=== PATIENT | female | born 1960 | race Caucasian/White ===

== ENCOUNTER 2019-02-04 05:23 | Inpatient (IN) | payer MEDICAID ==
[2019-02-03 14:52] LABS: BASOPHILS % (AUTO) 0.4 % (0-1); EOSINOPHILS # (AUTO) 0.3 X10'3 (0-0.9); EOSINOPHILS % (AUTO) 4.5 % (0-6); LYMPHOCYTES # (AUTO) 2.4 X10'3 (1.1-4.8); LYMPHOCYTES % (AUTO) 33.7 % (21-51); MEAN CORPUSCULAR HEMOGLOBIN 28.6 PG (27.0-31.0); MEAN CORPUSCULAR HGB CONC 33.6 g/dL (33.0-36.5); MEAN CORPUSCULAR VOLUME 85.1 FL (78-98); MEAN PLATELET VOLUME 8.5 FL (7.4-10.4); MONOCYTES # (AUTO) 0.5 X10'3 (0-0.9); MONOCYTES % (AUTO) 6.6 % (2-12); NEUTROPHILS # (AUTO) 3.9 X10'3 (1.8-7.7); NEUTROPHILS % (AUTO) 54.8 % (42-75); PRE OP HEMOGLOBIN 11.8 g/dL (12.0-16.0); PRE OP PLATELET COUNT 373 X10'3 (140-440); RED BLOOD COUNT 4.12 X10'6 (4.20-5.60); RED CELL DISTRIBUTION WIDTH 14.3 % (11.5-14.5)
[2019-02-03 14:58] LABS: PRE OP INR 0.9 INR; PRE OP PROTIME 9.4 SECONDS (9.0-12.0)
[2019-02-03 15:01] LABS: ALBUMIN 3.9 G/DL (3.4-5.0); ALKALINE PHOSPHATASE 120 IU/L (46-116); BLOOD UREA NITROGEN 34 MG/DL (7-18); BUN/CREATININE RATIO 25.8 (6.6-38.0); CALCIUM 9.6 MG/DL (8.5-10.1); CHLORIDE 104 MMOL/L (99-107); CREATININE 1.32 MG/DL (0.40-0.90); PRE OP ALT 26 U/L (30-65); PRE OP ANION GAP 8 (8-16); PRE OP AST 14 U/L (10-37); PRE OP BILIRUB, TOTAL 0.2 MG/DL (0.0-1.0); PRE OP GLUCOSE 138 MG/DL (70-104); PRE OP POTASSIUM 4.4 MMOL/L (3.4-5.1); PRE OP SODIUM 142 MMOL/L (135-145); TOTAL CARBON DIOXIDE 29.6 MMOL/L (24-32); TOTAL PROTEIN 7.7 G/DL (6.4-8.2); eGFR 41 ML/MIN
[2019-02-03 15:08] LABS: HEMOGLOBIN A1C 8.2 % (4.5-6.2)
[~2019-02-04] VITALS: Ht 154.9 cm; Wt 70.0 kg
[2019-02-04] VITALS (23 sets, daily range): BP systolic 104–158; BP diastolic 57–80
[~2019-02-04 05:23] MED LIST: ALBU1.257 NEB; ALBU18HF2 INH; ASPI-107 PO; ATOR10TA70 PO; CHOL50004 PO; DULO30CA52 PO; DULO60CA65 PO; FURO40TA4 PO; GLIM1TAB PO; METF-438 PO; METF500T20 PO; PARO10TA4 PO; PARO40TA4 PO; albuterol 2.5 MG/3 ML nebule NEB ONE
[2019-02-04] MEDS ORDERED: cefazolin/dext.iso 2gm/100 ML IV ONE (05:30)
[2019-02-04] MEDS ORDERED: famotidine 20mg tablet PO ONE (05:30)
[2019-02-04] MEDS ORDERED: hydrocortisone sod succ/PF 100mg/2ml inj. IV ONE (05:30)
[2019-02-04] MEDS ORDERED: ipratropium/albuterol 3ml nebule IH ONE (05:30)
[2019-02-04] MEDS ORDERED: ringers solution, lacted 1,000 ML IV SCH ×2 (05:30→07:25)
[2019-02-04] MEDS ORDERED: LIDOcaine 1% (10mg/ml) 2ml vial ONE (05:55)
[2019-02-04] MEDS ORDERED: ketorolac trometh. 30mg/ml inj. ONE (06:39)
[2019-02-04] MEDS ORDERED: LIDOcaine 1% 30ml preserv. free vial ONE (06:40)
[2019-02-04] MEDS ORDERED: BUPIVAcaine/PF 2.5 mg/ml (0.25%) 30ml vial ONE (06:40)
[2019-02-04] MEDS ORDERED: ROPIVAcaine 0.5% (5mg/ml) 30ml vial ONE (06:40)
--- NOTE | 2019-02-04 06:45 | NUR ---
DR CAZARES AT PT BEDSIDE FOR ANESTHESIA INTERVIEW. NOTIFIED OF AM GLUCOSE OF 257 AT 0630. NO NEW ORDERS
[2019-02-04] MEDS ORDERED: neostigmine methylsulfate 1 MG/ML 10ml vial ONE (07:17)
[2019-02-04] MEDS ORDERED: fentaNYL/PF 50MCG/1 ML 2ML syringe ONE (07:17)
[2019-02-04] MEDS ORDERED: glycopyrrolate 0.2mg/ml inj ONE (07:17)
[2019-02-04] MEDS ORDERED: midazolam 2 mg/2 ml injection ONE (07:17)
[2019-02-04] MEDS ORDERED: rocuronium 10mg/ml inj IV ONE ×2 (07:17→09:51)
[2019-02-04] MEDS ORDERED: propofol inj 20 ML IV ONE (07:18)
[2019-02-04] MEDS ORDERED: ondansetron/PF 4mg/2ml inj ONE (07:18)
[2019-02-04] MEDS ORDERED: LIDOcaine 2% (20mg/ml) 5ml vial ONE (07:18)
[2019-02-04] MEDS ORDERED: fentaNYL/PF 50MCG/1 ML 2ML syringe IV PRN ×2 (07:25)
[2019-02-04] MEDS ORDERED: labetalol 20mg/4ml (5mg/ml) syringe IV PRN (07:25)
[2019-02-04] MEDS ORDERED: morphine 4 MG/ML inj SYRINge IV PRN ×2 (07:25)
[2019-02-04] MEDS ORDERED: ondansetron/PF 4mg/2ml inj IV PRN ×2 (07:25→11:05)
[2019-02-04] MEDS ORDERED: sevoflurane 250ml liquid IH ONE (07:25)
[2019-02-04] MEDS ORDERED: hydrALAZINE 20mg/ml inj. IV PRN (07:25)
[2019-02-04] MEDS ORDERED: dexamethasone sod phosphate 4mg/ml inj. ONE (07:57)
[2019-02-04] MEDS ORDERED: labetalol 20mg/4ml (5mg/ml) syringe IV ONE (08:39)
--- NOTE | 2019-02-04 10:56 | NUR ---
Received from OR via , accompanied by Anesthesiologist DR. KIM and report given by Anesthesiolgist. Patient o2 sat 50% on 10l mask, patient then bagged. RT paged for bi-pap. Patient o2 sat 90 % wwhen bagged. BP stable as charted, RR 30, HR 80. Abd binder in place, cdi. abd soft to touch. scd's in place, 20 gauge piv to right wrist ivf infusing as ordered. Will continue to monitor.
[2019-02-04] MEDS ORDERED: Potassium Cl inj 20 MEQ in ringers solution, lacted 1,000 ML IV SCH (11:04)
[2019-02-04] MEDS ORDERED: albuterol 1.25 MG/3 ML (1/2 strength) nebule NEB PRN (11:05)
[2019-02-04] MEDS ORDERED: naloxone 0.4 mg/ml inj IV PRN (11:05)
[2019-02-04] MEDS ORDERED: CADD PCA waste documentation MC PRN (11:05)
--- NOTE | 2019-02-04 11:06 | NUR ---
RT at bedside, bi-pap placed as ordered.
--- NOTE | 2019-02-04 11:10 | NUR ---
ADMITTED TO PACU FROM OR ACCOMPANIED BY ANESTHESIA. INTIAL PHYSICAL ASSESSMENT DONE AND RECORDED. AWAKE AND RESPONSE ON ARRIVE YO PACU, REPORT RECEIVED FROM ANESTHESIA. Addendum: 02/04/19 at 1246 by Cassandra Valentine RN ABOVE NOTE IN ERROR WRONG PATIENT
[2019-02-04 11:40] LABS: ABG BASE EXCESS -2.7 mmol/L (-2.0-3.0); ABG HCO3 25.3 mmol/L (22.0-26.0); ABG OXYGEN SATURATION 85.4 % (95-98); ABG PCO2 (T) 59.5 mmHg (35.0-45.0); ABG PH (T) 7.247 (7.350-7.450); ABG PO2 (T) 59.3 mmHg (83-108); ALLEN'S TEST Positive; FCOHb 1.4 % (0.5-1.5); FO2Hb 84.2 % (94-100); MINUTE VOLUME 15 L/min; RESPIRATORY RATE 16 b/min; RESPIRATORY RATE (OBSERVED) 31 b/min; TOTAL HEMOGLOBIN 11.6 G/dl (12.0-16.0)
[2019-02-04] MEDS ORDERED: HYDROcodone/acetaminophen 10/325mg tab PO ONE (11:40)
[2019-02-04] MEDS: HYDROmorphone/NS 1 mg/ml CADD 50 ML IV SCH ×7 (12:20→23:00)
--- NOTE | 2019-02-04 12:30 | NUR ---
Redceived report from PASS unit RN Riya. Patient on bipap, vitals being obtained, 2 rn skin check performed.
[2019-02-04] MEDS ORDERED: insulin regular, human 10 units/0.1 ml syringe IV ONE (12:35)
--- NOTE | 2019-02-04 13:26 | NUR ---
patient dc criteria met, report called to negrito stone on pcu, all questions and concerns addressed. patient transferred vis hospital bed on bi-pap. vss as charted. abd binder in place, 3 lap sites noted with band aides. sister informed of patient staying over night. transferred with all personal belongings.
--- NOTE | 2019-02-04 13:54 | NUR ---
Lesia Lala arrived to [facility] rm 3021b need order for ac/hs accuchek
[2019-02-04 14:05] LABS: ALLEN'S TEST Positive; MINUTE VOLUME 20 L/min; RESPIRATORY RATE 16 b/min; RESPIRATORY RATE (OBSERVED) 30 b/min; TIDAL VOLUME 675 mL
--- NOTE | 2019-02-04 14:05 | NUR ---
Lesia woodson rm 3022b need Diabetic protocol JOANN Gonzalez ext [phone]
[2019-02-04 14:06] LABS: ABG BASE EXCESS 0.3 mmol/L (-2.0-3.0); ABG HCO3 26.2 mmol/L (22.0-26.0); ABG OXYGEN SATURATION 95.2 % (95-98); ABG PCO2 (T) 47.7 mmHg (35.0-45.0); ABG PH (T) 7.358 (7.350-7.450); ABG PO2 (T) 81.5 mmHg (83-108); FCOHb 0.5 % (0.5-1.5); FMetHb 0.1 % (0.3-1.12); FO2Hb 94.6 % (94-100); TOTAL HEMOGLOBIN 11.8 G/dl (12.0-16.0)
[2019-02-04] MEDS ORDERED: magnesium Cl slow-release 64mg tablet PO PRN (14:30)
[2019-02-04] MEDS ORDERED: dextrose 50%-water 50ml dispensing syringe IV PRN ×2 (14:30)
[2019-02-04] MEDS ORDERED: magnesium 4gm in 100ml NS 100 ML IV PRN (14:30)
[2019-02-04] MEDS ORDERED: potassium Cl 20 mEq SR tablet PO PRN ×2 (14:30)
[2019-02-04] MEDS ORDERED: dextrose ORAL solution 15 GM/59 ML bottle PO PRN ×2 (14:30)
[2019-02-04] MEDS ORDERED: MESSAGE TO PHARMACY PO ONE (14:30)
[2019-02-04] MEDS ORDERED: potassium CL 10mEq/100ml bag 100 ML IV PRN (14:30)
[2019-02-04] MEDS ORDERED: glucagon, human recombinant 1mg kit SUBCUT PRN (14:30)
--- NOTE | 2019-02-04 15:11 | NUR ---
Lesia Lala rm 5373b hx heavy smoking. Nicotine patch ? JOANN Gonzalez [phone]
[2019-02-04] MEDS: normal saline 1000ml 1,000 ML IV SCH (15:12)
[2019-02-04] MEDS ORDERED: methylPREDNISolone sod succ 125mg/2ml vial IV ONE (15:25)
[2019-02-04] MEDS: nicotine 21mg patch - 24 hr TD SCH (15:59)
[2019-02-04] MEDS: insulin Lispro (HumaLOG) vial - multi-dose SQ SCH (17:33)
--- NOTE | 2019-02-04 18:30 | NUR ---
Problems reprioritized. Patient report given, questions answered & plan of care reviewed with JOANN Harman .
--- NOTE | 2019-02-04 18:30 | NUR ---
Patient in room PCU 3028. I have received report from pramod and negrito benavidez and had the opportunity to ask questions and assume patient care.
--- NOTE | 2019-02-04 18:31 | NUR ---
Problems reprioritized. Patient report given, questions answered & plan of care reviewed with Ghazal DAVID. Patient stable at transfer of care.
--- NOTE | 2019-02-04 18:33 | NUR ---
Orientee documentation: I have reviewed and agree with interventions, assessments performed and documented by Lisa DAVID. Orientee Medication Administration: For this medication-pass time frame, medication were reviewed, dispensed, administered and documented per hospital policy by Lisa DAVID.
[2019-02-04] MEDS: ipratropium/albuterol 3ml nebule NEB SCH ×2 (18:56→22:44)
[2019-02-04] MEDS: vitamin D (cholecalciferol) 1,000 unit tablet PO SCH (21:25)
[2019-02-04] MEDS: heparin, porcine 5000 units/ml vial SQ SCH (21:25)
[2019-02-04] MEDS: methylPREDNISolone sod succ 125mg/2ml vial IV SCH (21:25)
[2019-02-04] MEDS: insulin glargine (Lantus) pen - multi-dose SQ SCH (21:31)
[2019-02-04] MEDS ORDERED: LORazepam 2 mg/ml vial IV PRN (23:55)
--- NOTE | 2019-02-05 00:29 | NUR ---
PT PULLED OUT HER IV TRYING TO GET SOMETHING IN HER PURSE. PT IS REFUSING NEW IV ALTHOUGH SHE DID ALLOW TWO UNSUCCESSFUL ATTEMPTS. PT STATED HER UNDERSTANDING THAT PAIN MEDS WERE COMING THROUGH IV VIA HER CADD. STILL REFUSED NEW IV. ORDERS FOR PO NORCO OBTAINED
[2019-02-05] MEDS: methylPREDNISolone sod succ 125mg/2ml vial IV SCH ×4 (00:35→19:32)
[2019-02-05] MEDS: HYDROcodone/acetaminophen 10/325mg tab PO PRN ×5 (00:57→23:15)
[2019-02-05] MEDS: HYDROmorphone/NS 1 mg/ml CADD 50 ML IV SCH (01:00)
[2019-02-05 03:00] VITALS: BP 109/62
[2019-02-05] MEDS: ipratropium/albuterol 3ml nebule NEB SCH ×6 (03:05→22:55)
[2019-02-05] MEDS: normal saline 1000ml 1,000 ML IV SCH ×2 (03:21→17:40)
[2019-02-05] MEDS: LORazepam 0.5 MG tablet PO PRN ×3 (03:27→23:15)
[2019-02-05 05:07] LABS: BASOPHILS % (AUTO) 0.2 % (0-1); EOSINOPHILS % (AUTO) 0 % (0-6); HEMATOCRIT 34.5 % (35.0-45.0); HEMOGLOBIN 11.2 g/dl (12.0-16.0); LYMPHOCYTES # (AUTO) 1.1 X10'3 (1.1-4.8); LYMPHOCYTES % (AUTO) 6.8 % (21-51); MEAN CORPUSCULAR HEMOGLOBIN 27.9 PG (27.0-31.0); MEAN CORPUSCULAR HGB CONC 32.3 g/dL (33.0-36.5); MEAN CORPUSCULAR VOLUME 86.4 FL (78-98); MEAN PLATELET VOLUME 8.5 FL (7.4-10.4); MONOCYTES # (AUTO) 0.6 X10'3 (0-0.9); MONOCYTES % (AUTO) 3.6 % (2-12); NEUTROPHILS # (AUTO) 13.9 X10'3 (1.8-7.7); NEUTROPHILS % (AUTO) 89.4 % (42-75); PLATELET COUNT 364 X10'3 (140-440); RED CELL DISTRIBUTION WIDTH 14.4 % (11.5-14.5); WHITE BLOOD COUNT 15.5 X10'3 (4.5-11.0)
[2019-02-05 05:15] LABS: ALBUMIN 3.6 G/DL (3.4-5.0); ANION GAP 13 (8-16); BLOOD UREA NITROGEN 32 MG/DL (7-18); BUN/CREATININE RATIO 22.5 (6.6-38.0); CALCIUM 8.9 MG/DL (8.5-10.1); CHLORIDE 104 MMOL/L (99-107); CREATININE 1.42 MG/DL (0.40-0.90); GLUCOSE 326 MG/DL (70-104); MAGNESIUM 1.8 MG/DL (1.5-2.4); PHOSPHORUS 3.9 MG/DL (2.3-4.5); POTASSIUM 4.5 MMOL/L (3.5-5.1); SODIUM 141 MMOL/L (135-145); TOTAL CARBON DIOXIDE 24.2 MMOL/L (24-32); eGFR 38 ML/MIN
[2019-02-05 06:00] VITALS: BP 127/79
--- NOTE | 2019-02-05 06:28 | NUR ---
Problems reprioritized. Patient report given, questions answered & plan of care reviewed with pramod stone.
--- NOTE | 2019-02-05 06:30 | NUR ---
Patient in room PCU 3028. I have received report from JOANN Harman and had the opportunity to ask questions and assume patient care.
[2019-02-05] MEDS: PARoxetine 20mg tablet PO SCH (07:52)
[2019-02-05] MEDS: atorvastatin 10mg tablet PO SCH (07:52)
[2019-02-05] MEDS: vitamin D (cholecalciferol) 1,000 unit tablet PO SCH ×2 (07:53→19:47)
[2019-02-05] MEDS: duloxetine 30mg CAPSULE.DR PO SCH (07:53)
[2019-02-05] MEDS: heparin, porcine 5000 units/ml vial SQ SCH ×3 (07:55→19:51)
[2019-02-05] MEDS ORDERED: glimepiride 1 MG tablet PO SCH (08:00)
[2019-02-05] MEDS ORDERED: PARoxetine 10mg tablet PO SCH (08:00)
[2019-02-05] MEDS ORDERED: duloxetine 30mg CAPSULE.DR PO SCH (08:00)
[2019-02-05] MEDS: nicotine 21mg patch - 24 hr TD SCH ×2 (08:00→11:55)
[2019-02-05] MEDS ORDERED: furosemide 40mg tablet PO SCH (08:00)
[2019-02-05] MEDS: insulin Lispro (HumaLOG) vial - multi-dose SQ SCH ×2 (09:00→21:42)
--- NOTE | 2019-02-05 10:30 | NUR ---
Lesia Lala insists on d/c today JOANN Gonzalez ext [phone]
--- NOTE | 2019-02-05 10:42 | NUR ---
Lesia Lala insists on d/c today JOANN Gonzalez ext [phone]
[2019-02-05 11:00] VITALS: BP 106/62
[2019-02-05] MEDS ORDERED: magnesium hydroxide 30ml (MOM) UD suspension PO ONE (12:40)
--- NOTE | 2019-02-05 13:05 | NUR ---
Patient has been refusing to wear her tele monitor and went missing for the second time this shift. [place] the bus [place]. She was educated that leaving the floor is not permitted and smoking while inpatient was not permitted. She was informed that if she was willing to return to the floor she was to keep her tele monitor on and if she is not willing to follow our policy of remaining on our floor and wearing her tele monitor she would potentially need to leave AMA. Returned patient to room via wheelchair as she was very winded. SPO2 was 91% on room air upon arrival. Will continue to monitor.
--- NOTE | 2019-02-05 13:08 | NUR ---
Paged Dr Orozco "PAGER ID: [phone] MESSAGE: [phone] Su[address] [phone] Spike Lesia patient was found at the bus stop smoking for the second time today. She was educated that this is not okay. Placed back on tele monitoring. SPO2 was 91% on arrival back to the floor."
[2019-02-05 15:00] VITALS: BP 122/71
--- NOTE | 2019-02-05 15:52 | NUR ---
DM consult: Pt with A1c 8.2 seen at bedside. Pt falling asleep during RD visit however pt declines any questions about DM management at this time. Pt provided with written DM ed with referral to outpatient DM class and RD contact information. Pt s/p lap lysis of adhesions and mesh repair of recurrent incisional hernia. Pt with BiPAP d/t underlying pulmonary disease. Pt reports low appetite. Diet just advanced to CHO controlled from clear liquid, pending documented PO intake. Pt reports food allergy to honey and states difficulty chewing and swallowing, ST consult will be sent. No documented LBM, pt reports it was 4 weeks ago which is unlikely. Pt given MoM today per med list, will send power pudding with dinner tonight. Will continue to follow and monitor need for ONS. Recommendations: 1) Continue CHO controlled diet 2) Monitor need for ONS 3) Routine bowel care 4) Wt per rx Addendum: 02/05/19 at [address] Amended: Links added.
[2019-02-05 18:00] VITALS: BP 116/73
--- NOTE | 2019-02-05 18:31 | NUR ---
Problems reprioritized. Patient report given, questions answered & plan of care reviewed with JOANN Pacheco and JOANN Sethi .
--- NOTE | 2019-02-05 18:41 | NUR ---
PAGER ID: [phone] MESSAGE: [phone] Lesia Lala: Has no code status orders. Will you please enter the order? Thanks. Brittny DAVID ext [phone]
--- NOTE | 2019-02-05 18:41 | NUR ---
Patient in room PCU 3028. I have received report from Lisa DAVID and had the opportunity to ask questions and assume patient care.
[2019-02-05] MEDS: furosemide 40mg/4ml inj IV SCH (19:32)
[2019-02-05] MEDS: diltiazem SR 60mg capsule (twice daily) PO SCH (19:47)
[2019-02-05] MEDS: insulin glargine (Lantus) pen - multi-dose SQ SCH (21:39)
[2019-02-05 22:00] VITALS: BP 119/70
--- NOTE | 2019-02-06 01:54 | NUR ---
Patient left the hospital AMA. Was outside the hospital in respiratory distress so was readmitted to the floor. No IV access currently and am unable to gain access. notified.
[2019-02-06] MEDS: methylPREDNISolone sod succ 125mg/2ml vial IV SCH ×4 (01:57→19:44)
[2019-02-06 02:00] VITALS: BP 132/76
[2019-02-06] MEDS: ipratropium/albuterol 3ml nebule NEB SCH ×6 (03:01→23:01)
[2019-02-06] MEDS: LORazepam 0.5 MG tablet PO PRN ×3 (04:31→22:12)
[2019-02-06 05:44] LABS: MAGNESIUM 2.3 MG/DL (1.5-2.4); PHOSPHORUS 3.9 MG/DL (2.3-4.5)
[2019-02-06 06:00] VITALS: BP 122/65
--- NOTE | 2019-02-06 06:05 | NUR ---
Orientee documentation: I have reviewed and agree with all interventions, assessments performed and documented by Jossie DAVID . Medication Administration: For this medication-pass time frame, all medication were reviewed, dispensed, administered and documented per hospital policy by Jossie DAVID .
--- NOTE | 2019-02-06 06:07 | NUR ---
Problems reprioritized. Patient report given, questions answered & plan of care reviewed with Lisa DAVID
--- NOTE | 2019-02-06 06:13 | NUR ---
Patient in room PCU 3015. I have received report from Tara RN and JOANN Sethi and had the opportunity to ask questions and assume patient care.
[2019-02-06] MEDS: heparin, porcine 5000 units/ml vial SQ SCH ×3 (08:00→19:44)
[2019-02-06] MEDS: furosemide 40mg/4ml inj IV SCH ×2 (08:58→19:45)
[2019-02-06] MEDS: PARoxetine 20mg tablet PO SCH (08:58)
[2019-02-06] MEDS: atorvastatin 10mg tablet PO SCH (08:59)
[2019-02-06] MEDS: vitamin D (cholecalciferol) 1,000 unit tablet PO SCH ×2 (08:59→19:44)
[2019-02-06] MEDS: duloxetine 30mg CAPSULE.DR PO SCH (08:59)
[2019-02-06] MEDS: HYDROcodone/acetaminophen 10/325mg tab PO PRN ×3 (09:12→21:04)
[2019-02-06] MEDS ORDERED: magnesium 4gm in 100ml NS 100 ML IV PRN (09:45)
[2019-02-06] MEDS ORDERED: potassium Cl 20 mEq SR tablet PO PRN ×2 (09:45)
[2019-02-06] MEDS ORDERED: magnesium Cl slow-release 64mg tablet PO PRN (09:45)
[2019-02-06] MEDS ORDERED: potassium CL 10mEq/100ml bag 100 ML IV PRN (09:45)
[2019-02-06 10:25] LABS: BASOPHILS % (AUTO) 0.2 % (0-1); EOSINOPHILS % (AUTO) 0 % (0-6); HEMATOCRIT 30.3 % (35.0-45.0); HEMOGLOBIN 10.3 g/dl (12.0-16.0); LYMPHOCYTES # (AUTO) 1.4 X10'3 (1.1-4.8); LYMPHOCYTES % (AUTO) 18.3 % (21-51); MEAN CORPUSCULAR HEMOGLOBIN 28.6 PG (27.0-31.0); MEAN CORPUSCULAR HGB CONC 33.8 g/dL (33.0-36.5); MEAN CORPUSCULAR VOLUME 84.8 FL (78-98); MONOCYTES # (AUTO) 0.5 X10'3 (0-0.9); MONOCYTES % (AUTO) 6.7 % (2-12); NEUTROPHILS # (AUTO) 5.9 X10'3 (1.8-7.7); NEUTROPHILS % (AUTO) 74.8 % (42-75); PLATELET COUNT 305 X10'3 (140-440); RED BLOOD COUNT 3.58 X10'6 (4.20-5.60); RED CELL DISTRIBUTION WIDTH 14.2 % (11.5-14.5); WHITE BLOOD COUNT 7.8 X10'3 (4.5-11.0)
[2019-02-06 10:40] LABS: MAGNESIUM 2.1 MG/DL (1.5-2.4); PHOSPHORUS 3.4 MG/DL (2.3-4.5)
[2019-02-06] MEDS: diltiazem SR 60mg capsule (twice daily) PO SCH ×2 (10:52→19:45)
[2019-02-06] MEDS: nicotine 21mg patch - 24 hr TD SCH (10:55)
[2019-02-06] MEDS: levoFLOXACIN 250mg tablet PO SCH (10:55)
--- NOTE | 2019-02-06 11:44 | NUR ---
new order for ABG respiratory is notiifed
[2019-02-06] MEDS: normal saline 1000ml 1,000 ML IV SCH (11:53)
[2019-02-06 12:16] LABS: ABG BASE EXCESS 4.2 mmol/L (-2.0-3.0); ABG HCO3 30.9 mmol/L (22.0-26.0); ABG OXYGEN SATURATION 91.5 % (95-98); ABG PCO2 (T) 56.9 mmHg (35.0-45.0); ABG PH (T) 7.353 (7.350-7.450); ABG PO2 (T) 63.1 mmHg (83-108); ALLEN'S TEST Positive; FCOHb 0.3 % (0.5-1.5); FLOW 4 L/min; FMetHb 0.1 % (0.3-1.12); FO2Hb 91.1 % (94-100); TOTAL HEMOGLOBIN 11.5 G/dl (12.0-16.0)
[2019-02-06] MEDS: insulin Lispro (HumaLOG) vial - multi-dose SQ SCH ×2 (14:32→22:02)
[2019-02-06 15:00] VITALS: BP 116/62
--- NOTE | 2019-02-06 17:11 | NUR ---
FSBG of 351. Pt states that she ate 2 butch crackers 30-45 minutes prior to accucheck. Primary RN notified.
--- NOTE | 2019-02-06 18:00 | NUR ---
Patient in room PCU 3015. I have received report from Lisa DAVID and had the opportunity to ask questions and assume patient care.
--- NOTE | 2019-02-06 18:00 | NUR ---
Problems reprioritized. Patient report given, questions answered & plan of care reviewed with JOANN Solis .
[2019-02-06 19:00] VITALS: BP 103/58
[2019-02-06] MEDS: lactobacillus rhamnosus 10,000 MMU CELLS/CAPSULE PO SCH (19:45)
[2019-02-06] MEDS: insulin glargine (Lantus) pen - multi-dose SQ SCH (22:36)
[2019-02-06 23:00] VITALS: BP 111/62
[2019-02-07] MEDS: methylPREDNISolone sod succ 125mg/2ml vial IV SCH ×3 (02:20→14:00)
[2019-02-07 03:00] VITALS: BP 120/52
[2019-02-07] MEDS: ipratropium/albuterol 3ml nebule NEB SCH ×3 (03:08→10:57)
[2019-02-07 05:53] LABS: BASOPHILS % (AUTO) 0.2 % (0-1); EOSINOPHILS % (AUTO) 0 % (0-6); HEMOGLOBIN 10.3 g/dl (12.0-16.0); LYMPHOCYTES # (AUTO) 0.6 X10'3 (1.1-4.8); LYMPHOCYTES % (AUTO) 7.8 % (21-51); MEAN CORPUSCULAR HEMOGLOBIN 28.3 PG (27.0-31.0); MEAN CORPUSCULAR HGB CONC 33.2 g/dL (33.0-36.5); MEAN CORPUSCULAR VOLUME 85.4 FL (78-98); MEAN PLATELET VOLUME 8.4 FL (7.4-10.4); MONOCYTES # (AUTO) 0.1 X10'3 (0-0.9); NEUTROPHILS # (AUTO) 6.7 X10'3 (1.8-7.7); PLATELET COUNT 314 X10'3 (140-440); RED BLOOD COUNT 3.63 X10'6 (4.20-5.60); RED CELL DISTRIBUTION WIDTH 14.5 % (11.5-14.5); WHITE BLOOD COUNT 7.5 X10'3 (4.5-11.0)
[2019-02-07 05:59] LABS: ALANINE AMINOTRANSFERASE 30 U/L (12-78); ALBUMIN 3.6 G/DL (3.4-5.0); ALBUMIN/GLOBULIN RATIO 0.9 (1.1-1.5); ALKALINE PHOSPHATASE 92 IU/L (46-116); ANION GAP 11 (8-16); ASPARTATE AMINO TRANSFERASE 19 U/L (10-37); BILIRUBIN,TOTAL 0.3 MG/DL (0.1-1.0); BLOOD UREA NITROGEN 44 MG/DL (7-18); BUN/CREATININE RATIO 36.7 (6.6-38.0); CALCIUM 9.9 MG/DL (8.5-10.1); CHLORIDE 100 MMOL/L (99-107); GLUCOSE 278 MG/DL (70-104); POTASSIUM 3.4 MMOL/L (3.5-5.1); SODIUM 140 MMOL/L (135-145); TOTAL PROTEIN 7.7 G/DL (6.4-8.2); eGFR 46 ML/MIN
[2019-02-07 06:00] VITALS: BP 127/70
[2019-02-07] MEDS: HYDROcodone/acetaminophen 10/325mg tab PO PRN ×2 (06:01→10:57)
--- NOTE | 2019-02-07 06:29 | NUR ---
Problems reprioritized. Patient report given, questions answered & plan of care reviewed with Elizabeth DAVID.
[2019-02-07] MEDS: atorvastatin 10mg tablet PO SCH (08:41)
[2019-02-07] MEDS: furosemide 40mg/4ml inj IV SCH (08:41)
[2019-02-07] MEDS: heparin, porcine 5000 units/ml vial SQ SCH (08:41)
[2019-02-07] MEDS: vitamin D (cholecalciferol) 1,000 unit tablet PO SCH (08:42)
[2019-02-07] MEDS: duloxetine 30mg CAPSULE.DR PO SCH (08:42)
[2019-02-07] MEDS: diltiazem SR 60mg capsule (twice daily) PO SCH (08:42)
[2019-02-07] MEDS: lactobacillus rhamnosus 10,000 MMU CELLS/CAPSULE PO SCH (08:42)
[2019-02-07] MEDS: PARoxetine 20mg tablet PO SCH (08:42)
[2019-02-07] MEDS: insulin Lispro (HumaLOG) vial - multi-dose SQ SCH (08:50)
[2019-02-07] MEDS: levoFLOXACIN 250mg tablet PO SCH (10:50)
[2019-02-07 10:53] VITALS: BP 120/74
[2019-02-07] MEDS: LORazepam 0.5 MG tablet PO PRN (10:53)
[2019-02-07] MEDS ORDERED: LEVO250T58 PO (11:09)
[2019-02-07] MEDS ORDERED: LACT1CAP26 PO (11:09)
[2019-02-07] MEDS ORDERED: PRED10TA23 PO (11:09)
[2019-02-07] MEDS ORDERED: CARSR60C PO (11:09)
[2019-02-07] MEDS ORDERED: MONT10TA21 PO (11:09)
[2019-02-07] MEDS ORDERED: BUDE10.22 INH (11:09)
[2019-02-07] MEDS ORDERED: NICO-687 TD (11:09)
--- NOTE | 2019-02-07 12:09 | NUR ---
FSBG 66, pt drinking apple juice at this time. Pt will be reassessed in 15 minutes.
--- NOTE | 2019-02-07 12:30 | NUR ---
Pts BG 66 before lunch. Pt drinking juice. States she feels "fine". BG 101 on recollect. No Insulin given.
--- NOTE | 2019-02-07 14:26 | NUR ---
Paged Dr. Orozco "MASON Gunter stated ok for d/c home. discharging pt home now."
--- NOTE | 2019-02-07 15:02 | NUR ---
Reviewed discharge instructions and importance of quitting smoking with pt and she verbalized understanding. IV removed. Reviewed prescriptions with pt and she verbalized understanding. Rx called to pts [facility] in [place]. Written Rx for Stephenson from Dr. Gunter given to pt to take to pharmacy. Pt discharged home with family. Pt refused to wear O2 on the ride home, she normally wears O2 at home. Pt escorted to her vehicle in with PCT.
[2019-02-08] MEDS ORDERED: MONT10TA21 PO (16:20)
[2019-02-08] MEDS ORDERED: CYCL-1 PO (16:21)
== END 2019-02-07 15:09 | disposition home health service (06) | DRG 227 ==
LOC: PAS 05:23 → PCU 3S 11:04 → UNDODISIN 02-06 01:10 → PCU 3S 02-06 01:33 → UNDODISIN 02-07 13:10
PROVIDERS: ADMIT Surgery; ATTEND Family Medicine
PROC: 0WUF4JZ Supplement Abdominal Wall with Synthetic Substitute, Percutaneous Endoscopic Approach (ICD-10-PCS; 2019-02-04)
PROC: 8E0W4CZ Robotic Assisted Procedure of Trunk Region, Percutaneous Endoscopic Approach (ICD-10-PCS; 2019-02-04)
PROC: 0DNU4ZZ Release Omentum, Percutaneous Endoscopic Approach (ICD-10-PCS; 2019-02-04)
PROC: 0DN84ZZ Release Small Intestine, Percutaneous Endoscopic Approach (ICD-10-PCS; 2019-02-04)
PROC: 0DNW4ZZ Release Peritoneum, Percutaneous Endoscopic Approach (ICD-10-PCS; 2019-02-04)
PROC: 5A09357 Assistance with Respiratory Ventilation, Less than 24 Consecutive Hours, Continuous Positive Airway Pressure (ICD-10-PCS; 2019-02-04)
PROC: 3E0T3BZ Introduction of Anesthetic Agent into Peripheral Nerves and Plexi, Percutaneous Approach (ICD-10-PCS; principal; 2019-02-04 07:25)
PROC: 5A09357 Assistance with Respiratory Ventilation, Less than 24 Consecutive Hours, Continuous Positive Airway Pressure (ICD-10-PCS; 2019-02-06)
DX: K43.0 Incisional hernia with obstruction, without gangrene (principal); J96.90 Respiratory failure, unspecified, unspecified whether with hypoxia or hypercapnia; J44.1 Chronic obstructive pulmonary disease with (acute) exacerbation; E11.22 Type 2 diabetes mellitus with diabetic chronic kidney disease; Z99.81 Dependence on supplemental oxygen; M32.9 Systemic lupus erythematosus, unspecified; D64.9 Anemia, unspecified; F32.9 Major depressive disorder, single episode, unspecified; E78.5 Hyperlipidemia, unspecified; F17.210 Nicotine dependence, cigarettes, uncomplicated; R00.0 Tachycardia, unspecified; N18.9 Chronic kidney disease, unspecified; I12.9 Hypertensive chronic kidney disease with stage 1 through stage 4 chronic kidney disease, or unspecified chronic kidney disease; K66.0 Peritoneal adhesions (postprocedural) (postinfection); F41.9 Anxiety disorder, unspecified; T38.0X5A Adverse effect of glucocorticoids and synthetic analogues, initial encounter; Z79.84 Long term (current) use of oral hypoglycemic drugs; Z80.9 Family history of malignant neoplasm, unspecified; Z82.49 Family history of ischemic heart disease and other diseases of the circulatory system; Z88.8 Allergy status to other drugs, medicaments and biological substances; Z91.030 Bee allergy status; Z91.018 Allergy to other foods; Z90.710 Acquired absence of both cervix and uterus; Z90.49 Acquired absence of other specified parts of digestive tract; Z83.3 Family history of diabetes mellitus; Z82.3 Family history of stroke; Z82.61 Family history of arthritis; Z80.0 Family history of malignant neoplasm of digestive organs; Z80.6 Family history of leukemia; Z91.19 Patient's noncompliance with other medical treatment and regimen; Z71.6 Tobacco abuse counseling; Y92.89 Other specified places as the place of occurrence of the external cause
CPT/HCPCS: 36415; 36600; 71046; 76937; 80048; 80053; 82803; 82948; 83036; 83605; 83735; 84100; 84145; 85018; 85025; 85610; 85730; 92508; 92616; 93005; 93306; 94640; 94660; 94760; A4215; A4618; C1781; G0378; J1100; J1170; J1644; J1720; J1815; J1885; J1940; J2001; J2250; J2405; J2704; J2710; J2795; J2930; J3010; J3480; J3490; J7030; J7120

== ENCOUNTER 2019-02-08 07:26 | Inpatient (IN) | payer MEDICAID ==
[~2019-02-08] VITALS: Ht 160 cm; Wt 93.1 kg
[2019-02-08] VITALS (13 sets, daily range): BP systolic 96–121; BP diastolic 44–65
[~2019-02-08 07:26] MED LIST changes: +BUDE10.22 INH; +CARSR60C PO; +LACT1CAP26 PO; +LEVO250T58 PO; +MONT10TA21 PO; +NICO-687 TD; +PRED10TA23 PO; -albuterol 2.5 MG/3 ML nebule NEB ONE
[2019-02-08] MEDS ORDERED: normal saline 1000ML IV soln IV ONE (07:35)
[2019-02-08] MEDS ORDERED: methylPREDNISolone sod succ 125mg/2ml vial IV ONE (07:35)
[2019-02-08] MEDS ORDERED: levoFLOXACIN-Levaquin 750MG/D5 150 ML IV ONE (07:35)
[2019-02-08] MEDS ORDERED: albuterol 2.5 MG/3 ML nebule CONTNEB PRN (07:35)
--- NOTE | 2019-02-08 07:47 | NUR ---
patient on bipap sating 100%.radiology at bedside.
--- NOTE | 2019-02-08 07:55 | NUR ---
RT AT BEDSIDE FOR ABG.
[2019-02-08 08:00] LABS: BASOPHILS % (AUTO) 0.3 % (0-1); EOSINOPHILS % (AUTO) 0 % (0-6); HEMATOCRIT 31.8 % (35.0-45.0); HEMOGLOBIN 10.3 g/dl (12.0-16.0); LYMPHOCYTES # (AUTO) 0.9 X10'3 (1.1-4.8); LYMPHOCYTES % (AUTO) 7.1 % (21-51); MEAN CORPUSCULAR HEMOGLOBIN 27.7 PG (27.0-31.0); MEAN CORPUSCULAR HGB CONC 32.3 g/dL (33.0-36.5); MEAN CORPUSCULAR VOLUME 85.9 FL (78-98); MEAN PLATELET VOLUME 8.3 FL (7.4-10.4); MONOCYTES # (AUTO) 1.1 X10'3 (0-0.9); MONOCYTES % (AUTO) 8.3 % (2-12); NEUTROPHILS # (AUTO) 10.8 X10'3 (1.8-7.7); NEUTROPHILS % (AUTO) 84.3 % (42-75); PLATELET COUNT 352 X10'3 (140-440); RED CELL DISTRIBUTION WIDTH 14.3 % (11.5-14.5); WHITE BLOOD COUNT 12.8 X10'3 (4.5-11.0)
[2019-02-08 08:06] LABS: ABG BASE EXCESS 2.5 mmol/L (-2.0-3.0); ABG HCO3 31.7 mmol/L (22.0-26.0); ABG OXYGEN SATURATION 99.5 % (95-98); ABG PCO2 (T) 77.1 mmHg (35.0-45.0); ABG PH (T) 7.232 (7.350-7.450); ABG PO2 (T) 527.9 mmHg (83-108); ALLEN'S TEST Positive; FCOHb 2.5 % (0.5-1.5); FMetHb 0.1 % (0.3-1.12); FO2Hb 96.9 % (94-100); MINUTE VOLUME 12 L/min; RESPIRATORY RATE 16 b/min; RESPIRATORY RATE (OBSERVED) 25 b/min; TIDAL VOLUME 469 mL; TOTAL HEMOGLOBIN 10.9 G/dl (12.0-16.0)
[2019-02-08 08:09] LABS: PARTIAL THROMBOPLASTIN TIME 25 SECONDS (22-32)
[2019-02-08 08:12] LABS: ANION GAP 6 (8-16); CHLORIDE 102 MMOL/L (99-107); POTASSIUM 4.9 MMOL/L (3.5-5.1); SODIUM 139 MMOL/L (135-145); TOTAL CARBON DIOXIDE 31.3 MMOL/L (24-32)
[2019-02-08 08:16] LABS: ALANINE AMINOTRANSFERASE 35 U/L (12-78); ALBUMIN 3.9 G/DL (3.4-5.0); ALKALINE PHOSPHATASE 114 IU/L (46-116); ASPARTATE AMINO TRANSFERASE 25 U/L (10-37); BILIRUBIN,TOTAL 0.2 MG/DL (0.1-1.0); BLOOD UREA NITROGEN 65 MG/DL (7-18); BUN/CREATININE RATIO 42.8 (6.6-38.0); CREATININE 1.52 MG/DL (0.40-0.90); GLUCOSE 388 MG/DL (70-104); TOTAL PROTEIN 7.9 G/DL (6.4-8.2); eGFR 35 ML/MIN
[2019-02-08 08:24] LABS: CLARITY,URINE CLEAR (Clear); COLOR,URINE YELLOW (Yellow); GLUCOSE, URINE >=1000 mg/dl (Neg); KETONES,URINE NEGATIVE (Neg); LEUKOCYTE ESTERASE ,URINE NEGATIVE (Neg); NITRITES, URINE NEGATIVE (Neg); OCCULT BLOOD,URINE MODERATE (Neg); PROTEIN,URINE NEGATIVE (Neg); UROBILINOGEN,URINE 0.2 E.U/dL (0.2-1.0)
[2019-02-08 08:25] LABS: UA COLLECTION TYPE STRAIGHT CATH
[2019-02-08 08:30] LABS: SQUAMOUS EPITHELIAL CELL,UR FEW /LPF (FEW)
--- NOTE | 2019-02-08 08:30 | NUR ---
patient appeared restless,repositioned for comfort.
[2019-02-08 08:31] LABS: BACTERIA,URINE FEW /HPF (Neg); WBC,URINE 0-4 /HPF (0-4)
--- NOTE | 2019-02-08 08:32 | NUR ---
dr. funez at bedside,made aware that patient was trying to pull out her bipap,appeared restless .Rt to draw another abg before 0900.
--- NOTE | 2019-02-08 09:10 | NUR ---
RT AT BEDSIDE.
[2019-02-08] MEDS ORDERED: etomidate 2mg/ml inj. IV ONE (09:20)
[2019-02-08] MEDS ORDERED: rocuronium 10mg/ml inj IV ONE (09:20)
[2019-02-08 09:25] LABS: ABG BASE EXCESS -0.6 mmol/L (-2.0-3.0); ABG HCO3 28.9 mmol/L (22.0-26.0); ABG OXYGEN SATURATION 97.9 % (95-98); ABG PCO2 (T) 78.2 mmHg (35.0-45.0); ABG PH (T) 7.186 (7.350-7.450); ABG PO2 (T) 139.6 mmHg (83-108); ALLEN'S TEST Positive; FCOHb 1.2 % (0.5-1.5); FMetHb 0.1 % (0.3-1.12); FO2Hb 96.6 % (94-100); MINUTE VOLUME 12 L/min; RESPIRATORY RATE 16 b/min; RESPIRATORY RATE (OBSERVED) 30 b/min; TIDAL VOLUME 383 mL; TOTAL HEMOGLOBIN 10.5 G/dl (12.0-16.0)
--- NOTE | 2019-02-08 09:25 | NUR ---
RSI- RT at bedside providing 100% o2 0925 Rocuronium 70 iv admin 0925 etomidate 20 admin iv
[2019-02-08] MEDS: propofol 1000mg/100ml bottle 100 ML IV SCH ×4 (09:31→17:08)
--- NOTE | 2019-02-08 09:49 | NUR ---
DR. CHAVEZ AND DR. IRVIN AT BEDSIDE.
--- NOTE | 2019-02-08 09:55 | NUR ---
LEFT A MESSAGE TO SON,[phone] AND TO JER.MADE AWARE THAT PATIENT IS BEIGN ADMITEED TO ICU AND TO CALL HOSPITAL BACK.
--- NOTE | 2019-02-08 10:03 | NUR ---
PICTURES TAKEN TO ABDOMINAL BRUISING FROM HERNIA REPAIR.
[2019-02-08] MEDS ORDERED: acetaminophen 325mg tablet PO PRN ×4 (10:20)
[2019-02-08] MEDS ORDERED: potassium Cl 20 mEq SR tablet PO PRN ×2 (10:20)
[2019-02-08] MEDS ORDERED: magnesium hydroxide 30ml (MOM) UD suspension PO PRN ×2 (10:20)
[2019-02-08] MEDS ORDERED: ondansetron/PF 4mg/2ml inj IV PRN (10:20)
[2019-02-08] MEDS ORDERED: pantoprazole 40 MG vial IV SCH (10:20)
[2019-02-08] MEDS: K, MAG and/or Phos replacement - Verify level? MC SCH (10:20)
--- NOTE | 2019-02-08 10:30 | NUR ---
Received report from JOANN Jaramillo
[2019-02-08 10:45] LABS: MAGNESIUM 2.3 MG/DL (1.5-2.4)
--- NOTE | 2019-02-08 10:50 | NUR ---
Pt arrived to unit via gurney and transferred to bed via slideboard. Intubated and sedated with propofol. RT providing BVM ventilation. Pt hooked up to monitor. VSS. Hydrophyllic foam to sacrum. Skin check performed with assembly person, Ashley. No wounds noted aside from bruising on abd from recent hernia repair.
--- NOTE | 2019-02-08 11:28 | NUR ---
Pt fighting vent, coughing, peak pressuring, desatting, appears extremely agitated. Several propofol boluses given and dose steadily increased to 50mcg
[2019-02-08] MEDS: enoxaparin 40mg/0.4ml syringe SUBCUT SCH (11:56)
[2019-02-08] MEDS: sodium chloride 0.45% 1,000 ML IV SCH (11:56)
[2019-02-08] MEDS ORDERED: fentaNYL/PF 50MCG/1 ML 2ML syringe IV ONE (12:55)
[2019-02-08] MEDS ORDERED: CefTRIAXone 2gm/D5W 50ml 50 ML IV ONE (13:20)
[2019-02-08] MEDS ORDERED: azithromycin/NS 500mg/250ml 250 ML IV ONE (13:20)
[2019-02-08] MEDS: FENTANYL-0.9 % NACL/PF 100 ML IV PRN ×2 (13:32→20:37)
[2019-02-08] MEDS: ipratropium/albuterol 3ml nebule NEB PRN (13:34)
[2019-02-08] MEDS: methylPREDNISolone sod succ 125mg/2ml vial IV SCH ×2 (13:53→20:04)
--- NOTE | 2019-02-08 13:59 | NUR ---
Initial: Pt previously discharged 02/07 and readmitted 02/08 with respiratory failure. Pt currently intubated. TF recommendations below for if prolonged intubation and to receive nutrition support. Will continue to follow. Recommendations: 1) If prolonged intubation and to receive TF, continuous Vital AF with goal rate of 70 mL/hr 2) If above, prealbumin q /; daily weights 3) BSS following extubation for diet advancement to heart healthy CHO controlled; pt s/p BSS 02/[address] recs pureed food with thin liquids Addendum: 02/08/19 at [address] Amended: Links added.
[2019-02-08] MEDS ORDERED: dextrose 50%-water 50ml dispensing syringe IV PRN ×2 (14:00)
[2019-02-08] MEDS ORDERED: dextrose ORAL solution 15 GM/59 ML bottle PO PRN ×2 (14:00)
[2019-02-08] MEDS ORDERED: glucagon, human recombinant 1mg kit SUBCUT PRN (14:00)
[2019-02-08] MEDS: ipratropium/albuterol 3ml nebule NEB SCH ×4 (15:00→23:27)
[2019-02-08] MEDS: insulin Lispro (HumaLOG) vial - multi-dose SQ SCH ×2 (15:36→20:09)
[2019-02-08 15:56] LABS: PO2 MIXED VENOUS (TEMP COR) 51.6 mmHg (35-46)
[2019-02-08 16:05] LABS: ABG BASE EXCESS -0.6 mmol/L (-2.0-3.0); ABG HCO3 26.4 mmol/L (22.0-26.0); ABG OXYGEN SATURATION 82.9 % (95-98); ABG PCO2 (T) 55.3 mmHg (35.0-45.0); ABG PH (T) 7.296 (7.350-7.450); ALLEN'S TEST Positive; FCOHb 0.3 % (0.5-1.5); FMetHb 0.3 % (0.3-1.12); FO2Hb 82.4 % (94-100); MINUTE VOLUME 7 L/min; PEEP 5 cm H2O; RESPIRATORY RATE 12 b/min; RESPIRATORY RATE (OBSERVED) 21 b/min; TIDAL VOLUME 300 mL
[2019-02-08] MEDS ORDERED: MONT10TA21 PO (16:20)
[2019-02-08] MEDS ORDERED: CYCL-1 PO (16:21)
--- NOTE | 2019-02-08 18:17 | NUR ---
Problems reprioritized. Patient report given, questions answered & plan of care reviewed with JOANN García.
[2019-02-08] MEDS ORDERED: docusate sod 100mg capsule PO SCH (20:00)
[2019-02-08] MEDS ORDERED: acetaminophen 325mg/10.15ml oral unit dose solution OGT PRN ×4 (20:07→20:08)
[2019-02-08] MEDS ORDERED: dextrose ORAL solution 15 GM/59 ML bottle OGT PRN ×2 (20:09)
[2019-02-08] MEDS ORDERED: magnesium hydroxide 30ml (MOM) UD suspension OGT PRN ×2 (20:10)
[2019-02-08] MEDS: insulin glargine (Lantus) pen - multi-dose SQ SCH (20:12)
--- NOTE | 2019-02-08 22:36 | NUR ---
ALLERGY BAND ON Addendum: 02/08/19 at 2247 by Ricky Young RN ALSO, SOBIA MENDOZA IS AWARE OF 12 HR TROPONIN VALUE 0.48 - NO ORDERS
[2019-02-09] VITALS (24 sets, daily range): BP systolic 93–121; BP diastolic 44–67
[2019-02-09] MEDS: propofol 1000mg/100ml bottle 100 ML IV SCH ×4 (02:24→16:25)
[2019-02-09] MEDS: methylPREDNISolone sod succ 125mg/2ml vial IV SCH ×4 (02:26→19:48)
[2019-02-09] MEDS: ipratropium/albuterol 3ml nebule NEB SCH ×8 (02:44→23:20)
[2019-02-09] MEDS: insulin Lispro (HumaLOG) vial - multi-dose SQ SCH ×2 (02:47→07:44)
[2019-02-09 03:20] LABS: ABG BASE EXCESS 3.3 mmol/L (-2.0-3.0); ABG HCO3 28.5 mmol/L (22.0-26.0); ABG OXYGEN SATURATION 91.6 % (95-98); ABG PCO2 (T) 46.3 mmHg (35.0-45.0); ABG PH (T) 7.407 (7.350-7.450); ABG PO2 (T) 61.6 mmHg (83-108); FMetHb 0.1 % (0.3-1.12); FO2Hb 91.5 % (94-100); MINUTE VOLUME 7 L/min; PEEP 5 cm H2O; RESPIRATORY RATE 12 b/min; RESPIRATORY RATE (OBSERVED) 13 b/min; TIDAL VOLUME 350 mL; TOTAL HEMOGLOBIN 9.8 G/dl (12.0-16.0)
[2019-02-09] MEDS: sodium chloride 0.45% 1,000 ML IV SCH ×2 (03:26→13:11)
[2019-02-09 06:04] LABS: BASOPHILS % (AUTO) 0.1 % (0-1); EOSINOPHILS % (AUTO) 0 % (0-6); HEMATOCRIT 26.8 % (35.0-45.0); LYMPHOCYTES # (AUTO) 0.8 X10'3 (1.1-4.8); LYMPHOCYTES % (AUTO) 11.7 % (21-51); MEAN CORPUSCULAR HEMOGLOBIN 28.6 PG (27.0-31.0); MEAN CORPUSCULAR HGB CONC 33.5 g/dL (33.0-36.5); MEAN CORPUSCULAR VOLUME 85.5 FL (78-98); MEAN PLATELET VOLUME 8.5 FL (7.4-10.4); MONOCYTES # (AUTO) 0.2 X10'3 (0-0.9); MONOCYTES % (AUTO) 2.9 % (2-12); NEUTROPHILS # (AUTO) 5.6 X10'3 (1.8-7.7); NEUTROPHILS % (AUTO) 85.3 % (42-75); PLATELET COUNT 291 X10'3 (140-440); RED BLOOD COUNT 3.14 X10'6 (4.20-5.60); RED CELL DISTRIBUTION WIDTH 14.3 % (11.5-14.5); WHITE BLOOD COUNT 6.6 X10'3 (4.5-11.0)
[2019-02-09 06:06] LABS: PARTIAL THROMBOPLASTIN TIME 25 SECONDS (22-32)
[2019-02-09 06:22] LABS: ALANINE AMINOTRANSFERASE 32 U/L (12-78); ALBUMIN 3.1 G/DL (3.4-5.0); ALKALINE PHOSPHATASE 72 IU/L (46-116); ANION GAP 8 (8-16); ASPARTATE AMINO TRANSFERASE 17 U/L (10-37); BILIRUBIN,TOTAL 0.2 MG/DL (0.1-1.0); BLOOD UREA NITROGEN 35 MG/DL (7-18); CALCIUM 8.6 MG/DL (8.5-10.1); CHLORIDE 109 MMOL/L (99-107); CREATININE 1.06 MG/DL (0.40-0.90); GLUCOSE 193 MG/DL (70-104); MAGNESIUM 2.1 MG/DL (1.5-2.4); PHOSPHORUS 2.2 MG/DL (2.3-4.5); POTASSIUM 3.9 MMOL/L (3.5-5.1); SODIUM 146 MMOL/L (135-145); TOTAL CARBON DIOXIDE 28.8 MMOL/L (24-32); TOTAL PROTEIN 6.3 G/DL (6.4-8.2); eGFR 53 ML/MIN
[2019-02-09 06:25] LABS: TROPONIN I 0.67 NG/ML (0.0-0.05)
[2019-02-09] MEDS: FENTANYL-0.9 % NACL/PF 100 ML IV PRN (07:23)
[2019-02-09] MEDS: CefTRIAXone 2gm/D5W 50ml 50 ML IV SCH (07:24)
[2019-02-09] MEDS: ESOMEPRAZOLE 40 MG VIAL IV SCH (07:24)
[2019-02-09] MEDS: AZITHROMYCIN IV SCH (07:24)
[2019-02-09] MEDS: NORMAL SALINE IV SCH (07:24)
[2019-02-09] MEDS: docusate sodium 100mg/10ml UD cup OGT SCH ×2 (07:25→19:48)
[2019-02-09] MEDS: enoxaparin 40mg/0.4ml syringe SUBCUT SCH (07:25)
[2019-02-09] MEDS: K, MAG and/or Phos replacement - Verify level? MC SCH (08:01)
--- NOTE | 2019-02-09 10:50 | NUR ---
TF/DM Consults: OGTF to start today per MD. recs below. Will monitor for TF tolerance. Roman 12 w/ prior abdomen surgical area noted. hx DM A1C 8.2; will need DM ed prior to d/c once stable. Initial: Pt previously discharged 02/07 and readmitted 02/08 with respiratory failure. Pt currently intubated. TF recommendations below for if prolonged intubation and to receive nutrition support. Will continue to follow. Recommendations: 1) OGTF per MD using Vital AF at 70 mL/hr goal; to provide 1680ml fluid, 2016 kcals, 1361ml free water, and 126g protein. Initiate at 20ml/hr and advance 20ml Q8 to goal as tolerated. 2) water flush 200ml Q4 3) prealbumin q /; daily weights 4) BSS following extubation for diet advancement to heart healthy CHO controlled; pt s/p BSS 02/[address] recs pureed food with thin liquids Addendum: 02/09/19 at [address] Amended: Links added.
[2019-02-09] MEDS: dexmedetomidin/NS 400mcg/100ml 100 ML IV SCH ×2 (14:09→23:04)
[2019-02-09] MEDS ORDERED: levalbuterol 0.63mg/3ml nebule IH SCH (15:00)
[2019-02-09] MEDS ORDERED: levalbuterol 0.63mg/3ml nebule IH PRN (16:20)
[2019-02-09] MEDS ORDERED: Neutra Phos packet PO PRN (18:55)
[2019-02-09] MEDS: insulin regular, human vial - multi-dose SQ SCH (19:47)
[2019-02-09] MEDS: lactobacillus rhamnosus 10,000 MMU CELLS/CAPSULE PO SCH (19:48)
--- NOTE | 2019-02-09 20:06 | NUR ---
during assessment i stopped propofol gtt for a better neuro assessment. within 4 minutes patient was agitated and restless moving all over bed, increased resp rate - after reorienting patient she nods appropriately. denies pain but yes to anxiety. i oriented patient to time and events and plans for the shift tonight - patient nodded appropriately. i told patient i was putting her sedation back on so she would sleep and she nodded vigorously as if in agreeing. vss, tf increased to 50 ml per order so i decreased IVMF to 25 ml/hr. tolerating tf, precedex increasing , diprivan decreasing as tolerated. no distress, c-pap is tolerated, small secretions and thinner than last night. brown/sena in color. wheezes remain. cpap orders reviewed with RT fentanyl infuses at 50 ug/hr. no changes in skin condition. all procedures explained. also see bedside chart for 19:32 wide complex run on EKG. Not sustained, VSS, July N.P aware - no orders. There is a troponin due at midnight tonight. AM were unremarkable except Phos 2.2 - replaced per order with one packet neutra phos
[2019-02-09] MEDS: insulin glargine (Lantus) pen - multi-dose SQ SCH (20:37)
[2019-02-10] VITALS (24 sets, daily range): BP systolic 95–110; BP diastolic 42–60
[2019-02-10] MEDS: methylPREDNISolone sod succ 125mg/2ml vial IV SCH ×2 (02:14→08:01)
[2019-02-10] MEDS: sodium chloride 0.45% 1,000 ML IV SCH ×2 (02:20→15:40)
[2019-02-10] MEDS: insulin regular, human vial - multi-dose SQ SCH ×4 (02:22→20:28)
[2019-02-10] MEDS: ipratropium/albuterol 3ml nebule NEB SCH ×8 (02:23→23:43)
[2019-02-10] MEDS: FENTANYL-0.9 % NACL/PF 100 ML IV PRN ×3 (03:17→23:16)
[2019-02-10 03:31] LABS: ABG BASE EXCESS 4.1 mmol/L (-2.0-3.0); ABG HCO3 28.3 mmol/L (22.0-26.0); ABG OXYGEN SATURATION 90.9 % (95-98); ABG PCO2 (T) 42.9 mmHg (35.0-45.0); ABG PH (T) 7.441 (7.350-7.450); FCOHb 0.3 % (0.5-1.5); FMetHb 0.3 % (0.3-1.12); FO2Hb 90.4 % (94-100); MINUTE VOLUME 8 L/min; PATIENT TEMPERATURE 37.9; PEEP 5 cm H2O; RESPIRATORY RATE (OBSERVED) 14 b/min; TOTAL HEMOGLOBIN 9.9 G/dl (12.0-16.0)
[2019-02-10] MEDS: propofol 1000mg/100ml bottle 100 ML IV SCH ×2 (05:26→09:10)
[2019-02-10 06:11] LABS: BASOPHILS % (AUTO) 0.1 % (0-1); EOSINOPHILS % (AUTO) 0 % (0-6); HEMATOCRIT 27.4 % (35.0-45.0); HEMOGLOBIN 9.2 g/dl (12.0-16.0); LYMPHOCYTES # (AUTO) 1.1 X10'3 (1.1-4.8); LYMPHOCYTES % (AUTO) 11.2 % (21-51); MEAN CORPUSCULAR HEMOGLOBIN 28.9 PG (27.0-31.0); MEAN CORPUSCULAR HGB CONC 33.6 g/dL (33.0-36.5); MEAN PLATELET VOLUME 8.8 FL (7.4-10.4); MONOCYTES # (AUTO) 0.4 X10'3 (0-0.9); MONOCYTES % (AUTO) 3.8 % (2-12); NEUTROPHILS # (AUTO) 8.6 X10'3 (1.8-7.7); NEUTROPHILS % (AUTO) 84.9 % (42-75); PLATELET COUNT 302 X10'3 (140-440); RED BLOOD COUNT 3.19 X10'6 (4.20-5.60); RED CELL DISTRIBUTION WIDTH 14.6 % (11.5-14.5); WHITE BLOOD COUNT 10.1 X10'3 (4.5-11.0)
[2019-02-10 06:19] LABS: ALANINE AMINOTRANSFERASE 29 U/L (12-78); ALBUMIN 2.9 G/DL (3.4-5.0); ALBUMIN/GLOBULIN RATIO 0.9 (1.1-1.5); ALKALINE PHOSPHATASE 66 IU/L (46-116); ANION GAP 5 (8-16); ASPARTATE AMINO TRANSFERASE 20 U/L (10-37); BILIRUBIN,TOTAL 0.2 MG/DL (0.1-1.0); CALCIUM 8.1 MG/DL (8.5-10.1); CHLORIDE 108 MMOL/L (99-107); CREATININE 0.98 MG/DL (0.40-0.90); GLUCOSE 172 MG/DL (70-104); MAGNESIUM 2.1 MG/DL (1.5-2.4); PHOSPHORUS 2.1 MG/DL (2.3-4.5); POTASSIUM 3.6 MMOL/L (3.5-5.1); PREALBUMIN 25.9 MG/DL (19-36); SODIUM 144 MMOL/L (135-145); TOTAL CARBON DIOXIDE 31.5 MMOL/L (24-32); TROPONIN I 0.32 NG/ML (0.0-0.05); eGFR 58 ML/MIN
[2019-02-10 06:20] LABS: BLOOD UREA NITROGEN 30 MG/DL (7-18); BUN/CREATININE RATIO 30.6 (6.6-38.0)
[2019-02-10] MEDS: K, MAG and/or Phos replacement - Verify level? MC SCH (08:00)
[2019-02-10] MEDS: docusate sodium 100mg/10ml UD cup OGT SCH ×2 (08:01→20:14)
[2019-02-10] MEDS: ESOMEPRAZOLE 40 MG VIAL IV SCH (08:01)
[2019-02-10] MEDS: lactobacillus rhamnosus 10,000 MMU CELLS/CAPSULE PO SCH ×2 (08:02→20:15)
[2019-02-10] MEDS: CefTRIAXone 2gm/D5W 50ml 50 ML IV SCH (08:02)
[2019-02-10] MEDS: enoxaparin 40mg/0.4ml syringe SUBCUT SCH (08:02)
[2019-02-10] MEDS: AZITHROMYCIN IV SCH (09:09)
[2019-02-10] MEDS: NORMAL SALINE IV SCH (09:09)
[2019-02-10] MEDS: dexmedetomidin/NS 400mcg/100ml 100 ML IV SCH ×3 (09:10→20:19)
[2019-02-10] MEDS ORDERED: ALBU8.5H8 IH (10:56)
[2019-02-10] MEDS: budesonide 0.5mg/2ml UD nebule IH SCH ×2 (11:33→20:32)
[2019-02-10] MEDS ORDERED: cyclobenzaprine 10mg tablet PO SCH (16:00)
[2019-02-10] MEDS ORDERED: cyclobenzaprine 10mg tablet PO PRN (16:38)
[2019-02-10] MEDS: vitamin D (cholecalciferol) 1,000 unit tablet PO SCH (20:15)
[2019-02-10] MEDS: insulin glargine (Lantus) pen - multi-dose SQ SCH (20:30)
[2019-02-10] MEDS: metFORMIN 500mg tablet PO SCH (20:37)
[2019-02-11] VITALS (24 sets, daily range): BP systolic 94–152; BP diastolic 41–79
[2019-02-11] MEDS: dexmedetomidin/NS 400mcg/100ml 100 ML IV SCH ×2 (01:33→06:46)
[2019-02-11] MEDS: ipratropium/albuterol 3ml nebule NEB SCH ×5 (02:38→20:01)
[2019-02-11 03:25] LABS: ABG BASE EXCESS 1.4 mmol/L (-2.0-3.0); ABG HCO3 25.9 mmol/L (22.0-26.0); ABG OXYGEN SATURATION 93.9 % (95-98); ABG PCO2 (T) 42.6 mmHg (35.0-45.0); ABG PH (T) 7.407 (7.350-7.450); FCOHb 0.3 % (0.5-1.5); FMetHb 0.1 % (0.3-1.12); FO2Hb 93.5 % (94-100); MINUTE VOLUME 9 L/min; PATIENT TEMPERATURE 38.2; PEEP 5 cm H2O; RESPIRATORY RATE (OBSERVED) 10 b/min; TOTAL HEMOGLOBIN 10.5 G/dl (12.0-16.0)
[2019-02-11 04:45] LABS: BASOPHILS % (AUTO) 0.2 % (0-1); EOSINOPHILS % (AUTO) 0 % (0-6); HEMATOCRIT 29.8 % (35.0-45.0); HEMOGLOBIN 9.8 g/dl (12.0-16.0); LYMPHOCYTES # (AUTO) 1.7 X10'3 (1.1-4.8); LYMPHOCYTES % (AUTO) 13.7 % (21-51); MEAN CORPUSCULAR HEMOGLOBIN 28.2 PG (27.0-31.0); MEAN CORPUSCULAR VOLUME 85.4 FL (78-98); MEAN PLATELET VOLUME 8.5 FL (7.4-10.4); MONOCYTES # (AUTO) 0.9 X10'3 (0-0.9); MONOCYTES % (AUTO) 7.8 % (2-12); NEUTROPHILS # (AUTO) 9.4 X10'3 (1.8-7.7); NEUTROPHILS % (AUTO) 78.3 % (42-75); PLATELET COUNT 282 X10'3 (140-440); RED BLOOD COUNT 3.49 X10'6 (4.20-5.60); RED CELL DISTRIBUTION WIDTH 14.6 % (11.5-14.5); WHITE BLOOD COUNT 12.1 X10'3 (4.5-11.0)
[2019-02-11] MEDS: sodium chloride 0.45% 1,000 ML IV SCH ×3 (05:00→21:54)
[2019-02-11 05:11] LABS: ALANINE AMINOTRANSFERASE 108 U/L (12-78); ALBUMIN 2.8 G/DL (3.4-5.0); ALBUMIN/GLOBULIN RATIO 0.8 (1.1-1.5); ALKALINE PHOSPHATASE 92 IU/L (46-116); ANION GAP 10 (8-16); ASPARTATE AMINO TRANSFERASE 182 U/L (10-37); BILIRUBIN,TOTAL 0.3 MG/DL (0.1-1.0); BLOOD UREA NITROGEN 35 MG/DL (7-18); BUN/CREATININE RATIO 36.5 (6.6-38.0); CHLORIDE 110 MMOL/L (99-107); CREATININE 0.96 MG/DL (0.40-0.90); GLUCOSE 113 MG/DL (70-104); MAGNESIUM 1.9 MG/DL (1.5-2.4); PHOSPHORUS 3.4 MG/DL (2.3-4.5); POTASSIUM 3.7 MMOL/L (3.5-5.1); SODIUM 145 MMOL/L (135-145); TOTAL CARBON DIOXIDE 24.6 MMOL/L (24-32); TOTAL PROTEIN 6.1 G/DL (6.4-8.2); eGFR 60 ML/MIN
[2019-02-11] MEDS: FENTANYL-0.9 % NACL/PF 100 ML IV PRN (06:10)
--- NOTE | 2019-02-11 06:20 | NUR ---
PATIENT HAD GOOD SHIFT. RESTLESSNESS AND ANXIETY WERE MUCH BETTER CONTROLLED WITH THE PRECEDEX AND FENTANYL GTT DOSES. EASILY AROUSABLE, NODS APPROPRIATELY TO COMMAND. NURSING CARE DID NOT CAUSE ANXIETY AND STRESS IN THE PAST. PATIENT ABLE TO TOLERATE ALL CARE THIS SHIFT INCLUDING BATH AND BED CHANGE. VSS ALL SHIFT, PATIENT DENIED PAIN. TOLERATED CPAP ENTIRE SHIFT. NO RESPIRATORY DISTRESS. MINIMAL SECRETIONS. WHEEZES MUCH IMPROVED, DIMINISHED BASES. SATS 89-100 ON 30 % FIO2. LOWGRADE FEVER. 38.2 T MAX. PATIENT RECEIVED ONE DOSE OF TYLENOL PT THIS SHIFT FOR PART LOW GRADE FEVER / PART COMFORT. TEMP BACK TO 38.2 AT END OF SHIFT PER BLADDER TEMP. SR/ST NO ECTOPY. PATIENT TOLERATING TF AT GOAL OF 70. 1 SMALL-MOD FORMED BROWN STOOL. BRYSON WITH QS U/O CLEAR YELLOW. SKIN REMAINS INTACT. T&P Q2+ WITH HEELS ELEVATED ON PILLOWS WELL ARMS. ALL PROCEDURES EXPLAINED.
[2019-02-11] MEDS: lactobacillus rhamnosus 10,000 MMU CELLS/CAPSULE PO SCH ×2 (07:21→21:38)
[2019-02-11] MEDS: enoxaparin 40mg/0.4ml syringe SUBCUT SCH (07:21)
[2019-02-11] MEDS: PARoxetine 10mg tablet PO SCH (07:21)
[2019-02-11] MEDS: atorvastatin 10mg tablet PO SCH (07:21)
[2019-02-11] MEDS: metFORMIN 500mg tablet PO SCH ×2 (07:21→21:38)
[2019-02-11] MEDS: duloxetine 30mg CAPSULE.DR PO SCH (07:22)
[2019-02-11] MEDS: docusate sodium 100mg/10ml UD cup OGT SCH ×2 (07:22→20:00)
[2019-02-11] MEDS: montelukast 10mg tablet PO SCH (07:22)
[2019-02-11] MEDS: aspirin 81mg tablet.DR PO SCH (07:22)
[2019-02-11] MEDS: vitamin D (cholecalciferol) 1,000 unit tablet PO SCH ×2 (07:22→21:39)
[2019-02-11] MEDS: CefTRIAXone 2gm/D5W 50ml 50 ML IV SCH (07:23)
[2019-02-11] MEDS: ESOMEPRAZOLE 40 MG VIAL IV SCH (07:23)
[2019-02-11] MEDS: K, MAG and/or Phos replacement - Verify level? MC SCH (07:51)
[2019-02-11] MEDS: AZITHROMYCIN IV SCH (07:51)
[2019-02-11] MEDS: NORMAL SALINE IV SCH (07:51)
[2019-02-11] MEDS ORDERED: PARoxetine 30mg tablet PO SCH (08:00)
[2019-02-11] MEDS ORDERED: PARoxetine 20mg tablet PO SCH (08:00)
[2019-02-11] MEDS ORDERED: glimepiride 1 MG tablet PO SCH (08:00)
[2019-02-11] MEDS: ipratropium/albuterol 3ml nebule NEB PRN (08:47)
[2019-02-11] MEDS: budesonide 0.5mg/2ml UD nebule IH SCH ×2 (08:47→20:01)
[2019-02-11] MEDS: predniSONE 20 mg tablet PO SCH ×2 (08:59→21:38)
--- NOTE | 2019-02-11 12:15 | NUR ---
Pt. had swallow eval. Can have pureed foods with thin liquids.
--- NOTE | 2019-02-11 12:34 | NUR ---
F/u: Pt extubated today BEATER OPERATOR BSS recs pureed/thin liquids. Pending PO at this time. OGTF d/c. Will monitor for additional protein needs s/p extubation. No BM yet this admit. Recommendations: 1) advance to carb controlled/pureed/thin liquids diet per BEATER OPERATOR/MD 2) monitor for ONS needs 3) wt per rx Addendum: 02/11/19 at [address] Amended: Links added.
--- NOTE | 2019-02-11 13:34 | NUR ---
Pt. constantly asks when she can go home. RN constantly reminds pt. that she just got extubted this morning and needs to stay in the hospital for monitoring today. TV turned on per pt. request in the hopes of distracting pt.
[2019-02-11] MEDS: morphine 2 MG/ML inj. syringe IV PRN (13:51)
[2019-02-11] MEDS: insulin regular, human vial - multi-dose SQ SCH (18:49)
[2019-02-11] MEDS: morphine 4 MG/ML inj SYRINge IV PRN ×2 (18:50→23:59)
--- NOTE | 2019-02-11 19:46 | NUR ---
awake and oriented, claimed she is feeling better , and wants to go home tonight , on room air with O2 sats at 97% , claimed of chronic back pain , pain medication given.
[2019-02-11] MEDS ORDERED: HYDROcodone/acetaminophen 10/325mg tab PO ONE (20:30)
[2019-02-11] MEDS: insulin glargine (Lantus) pen - multi-dose SQ SCH (21:00)
[2019-02-12] VITALS (13 sets, daily range): BP systolic 126–148; BP diastolic 57–79
[2019-02-12] MEDS: morphine 4 MG/ML inj SYRINge IV PRN (04:11)
[2019-02-12 04:49] LABS: BASOPHILS % (AUTO) 0.3 % (0-1); EOSINOPHILS % (AUTO) 0.2 % (0-6); HEMATOCRIT 35.4 % (35.0-45.0); HEMOGLOBIN 11.6 g/dl (12.0-16.0); LYMPHOCYTES # (AUTO) 1.5 X10'3 (1.1-4.8); LYMPHOCYTES % (AUTO) 12.8 % (21-51); MEAN CORPUSCULAR HGB CONC 32.8 g/dL (33.0-36.5); MEAN CORPUSCULAR VOLUME 85.5 FL (78-98); MEAN PLATELET VOLUME 8.8 FL (7.4-10.4); MONOCYTES # (AUTO) 0.7 X10'3 (0-0.9); MONOCYTES % (AUTO) 6.1 % (2-12); NEUTROPHILS # (AUTO) 9.3 X10'3 (1.8-7.7); NEUTROPHILS % (AUTO) 80.6 % (42-75); PLATELET COUNT 262 X10'3 (140-440); RED BLOOD COUNT 4.14 X10'6 (4.20-5.60); RED CELL DISTRIBUTION WIDTH 14.7 % (11.5-14.5); WHITE BLOOD COUNT 11.5 X10'3 (4.5-11.0)
[2019-02-12 04:58] LABS: PARTIAL THROMBOPLASTIN TIME 21 SECONDS (22-32)
[2019-02-12 05:03] LABS: ALANINE AMINOTRANSFERASE 138 U/L (12-78); ALBUMIN/GLOBULIN RATIO 0.9 (1.1-1.5); ALKALINE PHOSPHATASE 118 IU/L (46-116); ANION GAP 13 (8-16); ASPARTATE AMINO TRANSFERASE 79 U/L (10-37); BILIRUBIN,TOTAL 0.4 MG/DL (0.1-1.0); BLOOD UREA NITROGEN 18 MG/DL (7-18); BUN/CREATININE RATIO 27.7 (6.6-38.0); CALCIUM 8.8 MG/DL (8.5-10.1); CHLORIDE 105 MMOL/L (99-107); CREATININE 0.65 MG/DL (0.40-0.90); GLUCOSE 116 MG/DL (70-104); MAGNESIUM 1.5 MG/DL (1.5-2.4); PHOSPHORUS 3.6 MG/DL (2.3-4.5); POTASSIUM 3.4 MMOL/L (3.5-5.1); SODIUM 143 MMOL/L (135-145); TOTAL CARBON DIOXIDE 25.4 MMOL/L (24-32); TOTAL PROTEIN 6.4 G/DL (6.4-8.2); eGFR > 90 ML/MIN
--- NOTE | 2019-02-12 06:35 | NUR ---
Problems reprioritized. Patient report given, questions answered & plan of care reviewed with CARLINE DAVID.
[2019-02-12] MEDS: docusate sodium 100mg/10ml UD cup OGT SCH (08:00)
[2019-02-12] MEDS: K, MAG and/or Phos replacement - Verify level? MC SCH (08:00)
[2019-02-12] MEDS: morphine 2 MG/ML inj. syringe IV PRN (08:29)
[2019-02-12] MEDS: duloxetine 30mg CAPSULE.DR PO SCH (08:30)
[2019-02-12] MEDS: atorvastatin 10mg tablet PO SCH (08:30)
[2019-02-12] MEDS: lactobacillus rhamnosus 10,000 MMU CELLS/CAPSULE PO SCH (08:31)
[2019-02-12] MEDS: aspirin 81mg tablet.DR PO SCH (08:31)
[2019-02-12] MEDS: vitamin D (cholecalciferol) 1,000 unit tablet PO SCH (08:31)
[2019-02-12] MEDS: metFORMIN 500mg tablet PO SCH (08:32)
[2019-02-12] MEDS: ESOMEPRAZOLE 40 MG VIAL IV SCH (08:32)
[2019-02-12] MEDS: montelukast 10mg tablet PO SCH (08:32)
[2019-02-12] MEDS: enoxaparin 40mg/0.4ml syringe SUBCUT SCH (08:33)
[2019-02-12] MEDS: predniSONE 20 mg tablet PO SCH (08:33)
[2019-02-12] MEDS: AZITHROMYCIN IV SCH (08:34)
[2019-02-12] MEDS: CefTRIAXone 2gm/D5W 50ml 50 ML IV SCH (08:34)
[2019-02-12] MEDS: PARoxetine 10mg tablet PO SCH (08:34)
[2019-02-12] MEDS: NORMAL SALINE IV SCH (08:34)
[2019-02-12] MEDS: budesonide 0.5mg/2ml UD nebule IH SCH (08:44)
[2019-02-12] MEDS: ipratropium/albuterol 3ml nebule NEB SCH (08:44)
[2019-02-12] MEDS ORDERED: PRED20TA PO (11:05)
--- NOTE | 2019-02-12 12:30 | NUR ---
patient signed out AMA sister is here to pickup patient discussed with patient with MD at bedside risks of leaving AMA. patient still wishes to leave
[2019-02-12] MEDS ORDERED: NICO-630 TD (13:03)
[2019-02-12] MEDS ORDERED: NICO-631 TD (13:03)
--- NOTE | 2019-02-12 13:36 | NUR ---
patient left ama all lines and foleys discontinued patient given discharge instructions
[2019-02-13] MEDS ORDERED: predniSONE 20 mg tablet PO SCH (08:00)
[2019-02-13] MEDS ORDERED: methylnaltrexone br 12mg/0.6ml inj***SubQ only SQ SCH (08:00)
[2019-02-13] MEDS ORDERED: nicotine 21mg patch - 24 hr TD SCH (08:00)
[2019-02-13] MEDS ORDERED: nicotine 7mg patch - 24hr TD SCH (08:00)
[2019-02-13] MEDS ORDERED: nicotine 14mg patch - 24hr TD SCH (08:00)
[2019-02-18] MEDS ORDERED: nicotine 7mg patch - 24hr TD SCH (08:00)
[2019-02-19] MEDS ORDERED: predniSONE 20 mg tablet PO SCH (08:00)
[2019-02-20] MEDS ORDERED: nicotine 14mg patch - 24hr TD SCH (08:00)
[2019-02-25] MEDS ORDERED: prednisone 10mg tablet PO SCH (08:30)
== END 2019-02-12 13:30 | disposition home health service (06) | DRG 133 ==
LOC: ER 07:27 → ICU 2S 10:58 → CMPBEDREQ 02-10 19:44
PROVIDERS: ADMIT Internal Medicine Critical Care Medicine; ATTEND Internal Medicine Critical Care Medicine
PROC: 0BH17EZ Insertion of Endotracheal Airway into Trachea, Via Natural or Artificial Opening (ICD-10-PCS; principal; 2019-02-08)
PROC: 5A1945Z Respiratory Ventilation, 24-96 Consecutive Hours (ICD-10-PCS; 2019-02-08)
PROC: 05HM33Z Insertion of Infusion Device into Right Internal Jugular Vein, Percutaneous Approach (ICD-10-PCS; 2019-02-12)
DX: J96.21 Acute and chronic respiratory failure with hypoxia (principal); I21.4 Non-ST elevation (NSTEMI) myocardial infarction; I50.82 Biventricular heart failure; I50.22 Chronic systolic (congestive) heart failure; E11.65 Type 2 diabetes mellitus with hyperglycemia; E78.00 Pure hypercholesterolemia, unspecified; F17.210 Nicotine dependence, cigarettes, uncomplicated; F32.9 Major depressive disorder, single episode, unspecified; F41.9 Anxiety disorder, unspecified; G89.29 Other chronic pain; M19.90 Unspecified osteoarthritis, unspecified site; M54.9 Dorsalgia, unspecified; J44.1 Chronic obstructive pulmonary disease with (acute) exacerbation; J96.22 Acute and chronic respiratory failure with hypercapnia; Z79.899 Other long term (current) drug therapy; Z91.030 Bee allergy status; Z79.82 Long term (current) use of aspirin; Z91.018 Allergy to other foods; Z79.84 Long term (current) use of oral hypoglycemic drugs; Z90.710 Acquired absence of both cervix and uterus; Z90.49 Acquired absence of other specified parts of digestive tract
CPT/HCPCS: 31500; 36415; 36600; 71045; 71046; 80053; 81001; 82803; 82810; 82948; 83605; 83735; 83880; 84100; 84134; 84145; 84484; 85018; 85025; 85610; 85730; 87040; 87070; 87081; 92508; 92616; 93005; 94002; 94003; 94640; 94660; 94760; 96365; 96375; 97161; 97530; 99291; G0378; J0456; J0696; J1650; J1815; J1956; J2270; J2704; J2930; J3010; J7050; J7512; J7614; J7626

== ENCOUNTER 2019-09-12 10:14 | Emergency (ER) | payer MEDICAID ==
[~2019-09-12] VITALS: Ht 154.9 cm; Wt 65.2 kg
[~2019-09-12 10:14] MED LIST changes: -ALBU1.257 NEB; -ALBU18HF2 INH; +ALBU8.5H8 IH; -BUDE10.22 INH; -CARSR60C PO; +CYCL-1 PO; -LACT1CAP26 PO; -LEVO250T58 PO; +NICO-630 TD; +NICO-631 TD; -NICO-687 TD; -PARO10TA4 PO; -PRED10TA23 PO; +PRED20TA PO
[2019-09-12 11:03] VITALS: BP 127/75
[2019-09-12] MEDS ORDERED: ACET-1025 PO (11:47)
[2019-09-12] MEDS ORDERED: acetaminophen w/codeine (30MG) #3 tablet PO ONE (12:00)
[2019-09-12] MEDS ORDERED: LIDOcaine 5% patch TP SCH (12:00)
== END 2019-09-12 12:13 | disposition home or self-care (01) ==
LOC: ER 10:15
DX: S60.212A Contusion of left wrist, initial encounter (principal); E78.00 Pure hypercholesterolemia, unspecified; J44.9 Chronic obstructive pulmonary disease, unspecified; E11.9 Type 2 diabetes mellitus without complications; M19.90 Unspecified osteoarthritis, unspecified site; G89.29 Other chronic pain; F41.9 Anxiety disorder, unspecified; F32.9 Major depressive disorder, single episode, unspecified; Z90.49 Acquired absence of other specified parts of digestive tract; Z90.710 Acquired absence of both cervix and uterus; Z98.890 Other specified postprocedural states; Z91.030 Bee allergy status; Z91.018 Allergy to other foods; Z88.6 Allergy status to analgesic agent; Z79.82 Long term (current) use of aspirin; Z79.899 Other long term (current) drug therapy; W18.39XA Other fall on same level, initial encounter; Y93.89 Activity, other specified; Y92.89 Other specified places as the place of occurrence of the external cause; Y99.8 Other external cause status
CPT/HCPCS: 73110; 99284

== ENCOUNTER 2019-11-26 12:01 | Emergency (ER) | payer MEDICAID ==
[~2019-11-26] VITALS: Ht 154.9 cm; Wt 72.7 kg
[~2019-11-26 12:01] MED LIST changes: +ACET-1025 PO; +METF-900 PO; -METF500T20 PO
--- NOTE | 2019-11-26 14:47 | NUR ---
Pt taken to restroom via wheelchair. Urine sample obtained if needed.
--- NOTE | 2019-11-26 16:50 | NUR ---
KWESI Chatterjee at bedside. This RN was in the process of getting blood for labs, Shena states that we no longer need the labs.
[2019-11-26] MEDS ORDERED: HYDROcodone/acetaminophen 10/325mg tab PO ONE (17:10)
[2019-11-26 17:41] VITALS: BP 142/77
== END 2019-11-26 17:43 | disposition home or self-care (01) ==
LOC: ER 12:01
DX: M79.604 Pain in right leg (principal); M79.89 Other specified soft tissue disorders; R20.0 Anesthesia of skin; R53.1 Weakness; E78.00 Pure hypercholesterolemia, unspecified; J44.9 Chronic obstructive pulmonary disease, unspecified; E11.9 Type 2 diabetes mellitus without complications; M19.90 Unspecified osteoarthritis, unspecified site; G89.29 Other chronic pain; F41.9 Anxiety disorder, unspecified; F32.9 Major depressive disorder, single episode, unspecified; F17.200 Nicotine dependence, unspecified, uncomplicated; Z90.49 Acquired absence of other specified parts of digestive tract; Z90.710 Acquired absence of both cervix and uterus; Z90.89 Acquired absence of other organs; Z98.890 Other specified postprocedural states; Z88.8 Allergy status to other drugs, medicaments and biological substances; Z91.030 Bee allergy status; Z79.82 Long term (current) use of aspirin; Z79.899 Other long term (current) drug therapy
CPT/HCPCS: 73590; 93005; 93922; 93926; 93971; 99285

== ENCOUNTER 2020-02-20 18:17 | Inpatient (IN) | payer MEDICAID ==
[~2020-02-20] VITALS: Ht 154.9 cm; Wt 56.4 kg
[2020-02-20] MEDS ORDERED: ipratropium/albuterol 3ml nebule NEB ONE (18:50)
[2020-02-20 19:14] LABS: BASOPHILS % (AUTO) 0.4 % (0-1); EOSINOPHILS # (AUTO) 0.1 X10'3 (0-0.9); EOSINOPHILS % (AUTO) 1.1 % (0-6); HEMATOCRIT 36.3 % (35.0-45.0); HEMOGLOBIN 11.9 g/dl (12.0-16.0); LYMPHOCYTES # (AUTO) 1.9 X10'3 (1.1-4.8); LYMPHOCYTES % (AUTO) 23.1 % (21-51); MEAN CORPUSCULAR HEMOGLOBIN 28.2 PG (27.0-31.0); MEAN CORPUSCULAR HGB CONC 32.9 g/dL (33.0-36.5); MEAN CORPUSCULAR VOLUME 85.7 FL (78-98); MEAN PLATELET VOLUME 8.7 FL (7.4-10.4); MONOCYTES # (AUTO) 0.9 X10'3 (0-0.9); MONOCYTES % (AUTO) 10.4 % (2-12); NEUTROPHILS # (AUTO) 5.3 X10'3 (1.8-7.7); PLATELET COUNT 274 X10'3 (140-440); RED BLOOD COUNT 4.24 X10'6 (4.20-5.60); RED CELL DISTRIBUTION WIDTH 14.4 % (11.5-14.5); WHITE BLOOD COUNT 8.2 X10'3 (4.5-11.0)
[2020-02-20 19:24] LABS: ALANINE AMINOTRANSFERASE 17 U/L (12-78); ALBUMIN 3.5 G/DL (3.4-5.0); ALBUMIN/GLOBULIN RATIO 0.9 (1.1-1.5); ALKALINE PHOSPHATASE 117 IU/L (46-116); ANION GAP 12 (8-16); ASPARTATE AMINO TRANSFERASE 11 U/L (10-37); BILIRUBIN,TOTAL 0.3 MG/DL (0.1-1.0); BLOOD UREA NITROGEN 34 MG/DL (7-18); CALCIUM 8.9 MG/DL (8.5-10.1); CHLORIDE 103 MMOL/L (99-107); CREATININE 1.36 MG/DL (0.40-0.90); GLUCOSE 164 MG/DL (70-104); POTASSIUM 3.8 MMOL/L (3.5-5.1); SODIUM 143 MMOL/L (135-145); TOTAL CARBON DIOXIDE 28.4 MMOL/L (24-32); TOTAL PROTEIN 7.3 G/DL (6.4-8.2); eGFR 40 ML/MIN
[2020-02-20] MEDS ORDERED: methylPREDNISolone sod succ 125mg/2ml vial IV ONE (20:10)
[2020-02-20] MEDS ORDERED: acetaminophen 325mg tablet PO ONE (20:10)
[2020-02-20] MEDS ORDERED: iohexol 350MG/ML 100ml bottle IV ONE (20:17)
[2020-02-20] MEDS ORDERED: normal saline 1000ml 1,000 ML IV SCH (20:49)
[2020-02-20] MEDS ORDERED: potassium CL 10mEq/100ml bag 100 ML IV PRN ×2 (20:50)
[2020-02-20] MEDS ORDERED: magnesium Cl slow-release 64mg tablet PO PRN (20:50)
[2020-02-20] MEDS ORDERED: magnesium 4gm in 100ml NS 100 ML IV PRN (20:50)
[2020-02-20] MEDS ORDERED: ondansetron/PF 4mg/2ml inj IV PRN (20:50)
[2020-02-20] MEDS ORDERED: albuterol 2.5 MG/3 ML nebule NEB PRN (20:50)
[2020-02-20] MEDS ORDERED: potassium Cl 20 mEq SR tablet PO PRN ×2 (20:50)
[2020-02-20] MEDS ORDERED: acetaminophen 325mg tablet PO PRN (20:50)
[2020-02-20] MEDS ORDERED: magnesium 2GM in 50ml NS 50 ML IV PRN (20:50)
[2020-02-20] MEDS ORDERED: fentaNYL/PF 50MCG/1 ML 2ML syringe IV ONE (21:00)
--- NOTE | 2020-02-20 21:40 | NUR ---
paged RT Marcos Sesay rm 8 in ER needs a breathing tx. TYVM
[2020-02-20] MEDS: albuterol 2.5 MG/3 ML nebule NEB PRN (21:47)
--- NOTE | 2020-02-20 22:20 | NUR ---
received report fromRiya DAVID from the er. Patient arrived on gurney, normal saline was attached to IV but not hooked up, ra, vss, breathing heavy will continue to monitor
--- NOTE | 2020-02-20 22:45 | NUR ---
after receiving patient I noticed she was extremely SOB, couldnt stay awake while I was darting her, I asked my charge nurse to come have a look , we I ordered a breathing treatment but they said she just had one an hour ago and it didnt help and had an hour before her next treatment. paged doctor Shelli and asked for an abg and reported that pt was having SOB. Dr Marques arrived at bedside to assess pt. bi pap ordered and also abg. Patient combative when mask applied, stating she was choking. Day Spa Manager residential sales consultant into evaluate pt. for possible transfer to icu.
[2020-02-20 23:00] VITALS: BP 117/70
[2020-02-21] VITALS (22 sets, daily range): BP systolic 101–133; BP diastolic 47–88
[2020-02-21] MEDS ORDERED: albuterol 2.5 MG/3 ML nebule CONTNEB ONE (00:15)
[2020-02-21 00:26] LABS: ABG BASE EXCESS -4.4 mmol/L (-2.0-2.0); ABG HCO3 22.6 mmol/L (22.0-26.0); ABG OXYGEN SATURATION 87.9 % (94-97); ABG PCO2 (T) 49.1 mmHg (32.0-45.0); ABG PO2 (T) 59.5 mmHg (75.0-100.0); ALLEN'S TEST POSITIVE; FCOHb 1.9 % (0.0-3.9); FLOW 6 L/min; FMetHb 0.3 % (0.0-1.5); PATIENT TEMPERATURE 36.7; TOTAL HEMOGLOBIN 12.7 G/dl (12.0-16.0)
--- NOTE | 2020-02-21 00:30 | NUR ---
orders to transfer patient to icu received, patient not improving
--- NOTE | 2020-02-21 00:55 | NUR ---
gave report to Sonja DAVID in the icu, she left tele at 0050 to go to icu, she had a bi pap machine on
--- NOTE | 2020-02-21 00:55 | NUR ---
Patient being transferred from PCU to CICU. I have received report from JOANN Traore and had the opportunity to ask questions.
--- NOTE | 2020-02-21 01:00 | NUR ---
Patient arrived from PCU via hospital bed with RT, RN's in attendance. Patient moved to ICU bed via slide board. Patient has BiPap in place at 30% FiO2. Patient attempting to remove face mask, also making spastic movements of her legs and arms. Patient raising her legs and kicking out. Patient does not follow commands is oriented to person only. Kristina SOBIA Encarnacion at bedside. Orders for restraints and sitter received.
--- NOTE | 2020-02-21 01:01 | NUR ---
patient left tele with all her belongings and we received the tele machine back
[2020-02-21] MEDS ORDERED: dextrose ORAL solution 15 GM/59 ML bottle PO PRN ×2 (01:15)
[2020-02-21] MEDS ORDERED: glucagon, human recombinant 1mg kit SUBCUT PRN (01:15)
[2020-02-21] MEDS ORDERED: MESSAGE TO PHARMACY PO ONE (01:15)
[2020-02-21] MEDS ORDERED: dextrose 50%-water 50ml dispensing syringe IV PRN ×2 (01:15)
[2020-02-21 01:44] LABS: BASOPHILS % (AUTO) 0.1 % (0-1); EOSINOPHILS % (AUTO) 0.1 % (0-6); HEMATOCRIT 35.9 % (35.0-45.0); HEMOGLOBIN 11.9 g/dl (12.0-16.0); LYMPHOCYTES # (AUTO) 0.5 X10'3 (1.1-4.8); LYMPHOCYTES % (AUTO) 4.7 % (21-51); MEAN CORPUSCULAR HEMOGLOBIN 28.7 PG (27.0-31.0); MEAN CORPUSCULAR HGB CONC 33.2 g/dL (33.0-36.5); MEAN CORPUSCULAR VOLUME 86.5 FL (78-98); MEAN PLATELET VOLUME 8.9 FL (7.4-10.4); MONOCYTES # (AUTO) 0.1 X10'3 (0-0.9); NEUTROPHILS # (AUTO) 9.7 X10'3 (1.8-7.7); NEUTROPHILS % (AUTO) 94.1 % (42-75); PLATELET COUNT 260 X10'3 (140-440); RED BLOOD COUNT 4.15 X10'6 (4.20-5.60); RED CELL DISTRIBUTION WIDTH 14.5 % (11.5-14.5); WHITE BLOOD COUNT 10.3 X10'3 (4.5-11.0)
[2020-02-21 01:55] LABS: HEMOGLOBIN A1C 8.3 % (4.5-6.2)
[2020-02-21 01:59] LABS: ALANINE AMINOTRANSFERASE 17 U/L (12-78); ALBUMIN 3.7 G/DL (3.4-5.0); ALKALINE PHOSPHATASE 126 IU/L (46-116); ANION GAP 10 (8-16); ASPARTATE AMINO TRANSFERASE 13 U/L (10-37); BILIRUBIN,TOTAL 0.3 MG/DL (0.1-1.0); BLOOD UREA NITROGEN 32 MG/DL (7-18); BUN/CREATININE RATIO 24.4 (6.6-38.0); CALCIUM 8.9 MG/DL (8.5-10.1); CHLORIDE 103 MMOL/L (99-107); CREATININE 1.31 MG/DL (0.40-0.90); GLUCOSE 291 MG/DL (70-104); POTASSIUM 4.3 MMOL/L (3.5-5.1); SODIUM 141 MMOL/L (135-145); TOTAL CARBON DIOXIDE 27.8 MMOL/L (24-32); TOTAL PROTEIN 7.4 G/DL (6.4-8.2); eGFR 42 ML/MIN
[2020-02-21 02:02] LABS: MAGNESIUM 1.6 MG/DL (1.5-2.4); PHOSPHORUS 5.3 MG/DL (2.3-4.5)
[2020-02-21 02:15] LABS: PARTIAL THROMBOPLASTIN TIME 32 SECONDS (22-32)
[2020-02-21 02:16] LABS: ABG BASE EXCESS -2.3 mmol/L (-2.0-2.0); ABG HCO3 23.8 mmol/L (22.0-26.0); ABG OXYGEN SATURATION 93.4 % (94-97); ABG PCO2 (T) 46.3 mmHg (32.0-45.0); FMetHb 0.3 % (0.0-1.5); FO2Hb 92.2 % (94-97); RESPIRATORY RATE 18 b/min; TOTAL HEMOGLOBIN 12.1 G/dl (12.0-16.0)
[2020-02-21 02:39] LABS: CLARITY,URINE CLEAR (Clear); COLOR,URINE YELLOW (Yellow); GLUCOSE, URINE 100 mg/dl (Neg); KETONES,URINE NEGATIVE (Neg); LEUKOCYTE ESTERASE ,URINE NEGATIVE (Neg); NITRITES, URINE NEGATIVE (Neg); OCCULT BLOOD,URINE NEGATIVE (Neg); PH,URINE 5.5 (4.8-8.0); PROTEIN,URINE NEGATIVE (Neg); UA COLLECTION TYPE NON-SPECIFIED; UROBILINOGEN,URINE 0.2 E.U/dL (0.2-1.0)
[2020-02-21] MEDS: methylPREDNISolone sod succ 125mg/2ml vial IV SCH ×4 (02:56→19:05)
[2020-02-21] MEDS: ipratropium/albuterol 3ml nebule NEB SCH ×6 (03:30→22:58)
--- NOTE | 2020-02-21 05:00 | NUR ---
Patient with improved mentation, she is able to speak clearly, is oriented to person , place, and re orients well to time and events. Patient nods in agreement to keeping the BiPap mask on her face. Sitter remains at bedside, restraints in place.
--- NOTE | 2020-02-21 06:23 | NUR ---
Problems reprioritized. Patient report given, questions answered & plan of care reviewed with JOANN Ritter.
[2020-02-21] MEDS ORDERED: methylPREDNISolone sod succ/PF 40mg inj. IV SCH (08:00)
[2020-02-21] MEDS: K and/or MAG REPLACEMENT MC SCH ×2 (08:00→18:32)
[2020-02-21] MEDS ORDERED: [UNRECOGNIZED DRUG - REMARK] JT SCH (08:00)
[2020-02-21] MEDS: CefTRIAXone/D5W-Rocephin 1gm 50 ML IV SCH (08:47)
[2020-02-21] MEDS: pantoprazole 40 MG vial IV SCH (08:47)
[2020-02-21] MEDS: heparin, porcine 5000 units/ml vial SQ SCH ×2 (08:47→19:04)
[2020-02-21] MEDS: insulin Lispro (HumaLOG) vial - multi-dose SQ SCH ×3 (08:50→18:51)
--- NOTE | 2020-02-21 10:28 | NUR ---
DM consult: Pt with T2DM, current A1c is 8.3%. Per physical assessment pt is A/O x 1 and confused, currently in restraints with a sitter at bedside. DM education not appropriate at this time. Will continue to follow and provide DM education once pt more stable. Addendum: 02/21/20 at [address] Amended: Links added.
[2020-02-21] MEDS: azithromycin/NS 500mg/250ml 250 ML IV SCH (10:44)
[2020-02-21] MEDS: cyclobenzaprine 10mg tablet PO PRN (14:11)
[2020-02-21] MEDS: HYDROcodone/acetaminophen 10/325mg tab PO PRN (18:55)
[2020-02-21] MEDS: insulin glargine (Lantus) pen - multi-dose SQ SCH (21:34)
[2020-02-22] VITALS (17 sets, daily range): BP systolic 108–144; BP diastolic 43–89
[2020-02-22] MEDS: HYDROcodone/acetaminophen 10/325mg tab PO PRN ×4 (00:05→17:45)
[2020-02-22] MEDS: albuterol 2.5 MG/3 ML nebule NEB PRN (01:08)
[2020-02-22] MEDS: methylPREDNISolone sod succ 125mg/2ml vial IV SCH ×4 (02:04→21:35)
[2020-02-22] MEDS: ipratropium/albuterol 3ml nebule NEB SCH ×6 (03:37→23:29)
[2020-02-22 05:49] LABS: BASOPHILS % (AUTO) 0.2 % (0-1); EOSINOPHILS % (AUTO) 0 % (0-6); HEMATOCRIT 34.6 % (35.0-45.0); HEMOGLOBIN 11.2 g/dl (12.0-16.0); LYMPHOCYTES # (AUTO) 0.6 X10'3 (1.1-4.8); LYMPHOCYTES % (AUTO) 3.9 % (21-51); MEAN CORPUSCULAR HEMOGLOBIN 28.1 PG (27.0-31.0); MEAN CORPUSCULAR HGB CONC 32.3 g/dL (33.0-36.5); MEAN CORPUSCULAR VOLUME 86.8 FL (78-98); MONOCYTES # (AUTO) 0.2 X10'3 (0-0.9); MONOCYTES % (AUTO) 1.7 % (2-12); NEUTROPHILS # (AUTO) 13.5 X10'3 (1.8-7.7); NEUTROPHILS % (AUTO) 94.2 % (42-75); PLATELET COUNT 296 X10'3 (140-440); RED BLOOD COUNT 3.98 X10'6 (4.20-5.60); RED CELL DISTRIBUTION WIDTH 14.7 % (11.5-14.5); WHITE BLOOD COUNT 14.3 X10'3 (4.5-11.0)
--- NOTE | 2020-02-22 06:15 | NUR ---
Patient in room CICU 2013. I have received report from bertha ele and had the opportunity to ask questions and assume patient care.
[2020-02-22 06:32] LABS: ALBUMIN 3.6 G/DL (3.4-5.0); ANION GAP 10 (8-16); BLOOD UREA NITROGEN 31 MG/DL (7-18); BUN/CREATININE RATIO 28.7 (6.6-38.0); CHLORIDE 102 MMOL/L (99-107); CREATININE 1.08 MG/DL (0.40-0.90); GLUCOSE 267 MG/DL (70-104); MAGNESIUM 1.8 MG/DL (1.5-2.4); POTASSIUM 3.9 MMOL/L (3.5-5.1); SODIUM 140 MMOL/L (135-145); TOTAL CARBON DIOXIDE 27.8 MMOL/L (24-32); eGFR 52 ML/MIN
[2020-02-22 06:40] LABS: CALCIUM 9.2 MG/DL (8.5-10.1)
[2020-02-22] MEDS: CefTRIAXone/D5W-Rocephin 1gm 50 ML IV SCH (07:37)
[2020-02-22] MEDS: pantoprazole 40 MG vial IV SCH (07:37)
--- NOTE | 2020-02-22 07:52 | NUR ---
RT AT PT'S ROOM FOR 0700 SVN TX, PT CURRENTLY EATING BREAKFAST, RT WILL RETURN AT A LATER TIME FOR BREAKFAST. PT SHOWING NO SIGNS OF SOB OR DISTRESS. Addendum: 02/22/20 at 0753 by Laverne Cuevas RT Amended: Links added.
[2020-02-22] MEDS: K and/or MAG REPLACEMENT MC SCH ×2 (08:00→20:00)
[2020-02-22] MEDS: azithromycin/NS 500mg/250ml 250 ML IV SCH (08:39)
[2020-02-22] MEDS: heparin, porcine 5000 units/ml vial SQ SCH ×2 (08:39→21:36)
[2020-02-22] MEDS: FLUoxetine 20mg capsule PO SCH (08:40)
[2020-02-22] MEDS: insulin Lispro (HumaLOG) vial - multi-dose SQ SCH ×2 (09:00→21:52)
[2020-02-22] MEDS: cyclobenzaprine 10mg tablet PO PRN (10:24)
--- NOTE | 2020-02-22 11:05 | NUR ---
Malnutrition Consult: Pt admit w/ COPD exacerbation, briefly intubated now extubated on regular diet to transfer to floor on bipap per MD note. AOx2 at this time. No scaled wt this admit; HALLIE d/w RN regarding scaled wt today. Pt has no edema/wounds, no scaled wt or wt hx, and does not have visible signs of muscle/fat wasting appears well-nourished during RD visit. On regular diet w/ DM hx though further PO hx pending; would benefit from carb controlled diet if PO improves as medically indicated. Addendum: 02/22/20 at [address] Amended: Links added.
--- NOTE | 2020-02-22 14:48 | NUR ---
5 Addendum: 02/22/20 at 1449 by Doreen Greco RN Patient in room [facility] 2013. I have received report from Janel DAVID and had the opportunity to ask questions. Awaiting patient arrival to unit.
--- NOTE | 2020-02-22 14:48 | NUR ---
Problems reprioritized. Patient report given, questions answered & plan of care reviewed with Doreen BRICK CLEANER.
--- NOTE | 2020-02-22 16:00 | NUR ---
pt transported via w/c with all belongings to room 3024B,oriented to surroundings
--- NOTE | 2020-02-22 16:30 | NUR ---
Pt. transfered from CICU by JOANN Islas. Per hien, Insulin was held for lunch due to BG being 73. Patient at this time is alert and conversive. Pt belongings placed at bedside. engine monitor placed on patient. Vital signs read; 147/112, HR of 125, 95% on 2L, 9/10 pain.
--- NOTE | 2020-02-22 18:09 | NUR ---
Patient in room PCU 3024. I have received report from Doreen DAVID and had the opportunity to ask questions and assume patient care.
--- NOTE | 2020-02-22 18:10 | NUR ---
Patient in room PCU 3024. I have received report from JOANN Logan and had the opportunity to ask questions and assume patient care.
[2020-02-22] MEDS: [UNRECOGNIZED DRUG - REMARK] JT SCH (18:11)
--- NOTE | 2020-02-22 18:13 | NUR ---
Problems reprioritized. Patient report given, questions answered & plan of care reviewed with JOANN Harman.
[2020-02-22] MEDS: lactobacillus rhamnosus 10,000 MMU CELLS/CAPSULE PO SCH (21:33)
[2020-02-22] MEDS: guaiFENesin/DM 10ml UD oral syrup PO PRN (21:35)
[2020-02-22] MEDS: insulin glargine (Lantus) pen - multi-dose SQ SCH (21:52)
--- NOTE | 2020-02-23 01:15 | NUR ---
Rounded on pt and found her lying perpendicular in her bed with her nasal cannula off. Pt with adequate respirations, but difficult to arouse. Her oxygen saturation was 78%. Blood glucose 108. Placed her back on nasal cannula and repositioned in her bed. After several minutes she woke up. She fell back asleep easily. Bed alarm activated and third rail up with patient's consent. She states that she is a restless sleeper.
[2020-02-23 02:00] VITALS: BP 154/97
[2020-02-23] MEDS: HYDROcodone/acetaminophen 10/325mg tab PO PRN ×3 (02:25→19:02)
[2020-02-23] MEDS: methylPREDNISolone sod succ 125mg/2ml vial IV SCH ×4 (02:25→21:29)
[2020-02-23] MEDS: ipratropium/albuterol 3ml nebule NEB SCH ×6 (03:13→23:14)
--- NOTE | 2020-02-23 05:13 | NUR ---
Student documentation: I have reviewed and agree with all interventions, assessments performed and documented by Ruth gar. Student Medication Administration: For this medication-pass time frame, all medication were reviewed, dispensed, administered and documented per hospital policy by Ruth gar AND WOJCIECH stone.
[2020-02-23 05:21] LABS: BASOPHILS % (AUTO) 0.2 % (0-1); EOSINOPHILS % (AUTO) 0 % (0-6); HEMATOCRIT 35.2 % (35.0-45.0); HEMOGLOBIN 11.5 g/dl (12.0-16.0); LYMPHOCYTES # (AUTO) 0.5 X10'3 (1.1-4.8); LYMPHOCYTES % (AUTO) 4.1 % (21-51); MEAN CORPUSCULAR HEMOGLOBIN 28.2 PG (27.0-31.0); MEAN CORPUSCULAR HGB CONC 32.7 g/dL (33.0-36.5); MEAN CORPUSCULAR VOLUME 86.4 FL (78-98); MEAN PLATELET VOLUME 8.7 FL (7.4-10.4); MONOCYTES # (AUTO) 0.2 X10'3 (0-0.9); MONOCYTES % (AUTO) 1.9 % (2-12); NEUTROPHILS # (AUTO) 11.8 X10'3 (1.8-7.7); NEUTROPHILS % (AUTO) 93.8 % (42-75); PLATELET COUNT 303 X10'3 (140-440); RED BLOOD COUNT 4.07 X10'6 (4.20-5.60); RED CELL DISTRIBUTION WIDTH 14.4 % (11.5-14.5); WHITE BLOOD COUNT 12.6 X10'3 (4.5-11.0)
[2020-02-23 05:34] LABS: ALBUMIN 3.5 G/DL (3.4-5.0); ANION GAP 6 (8-16); BLOOD UREA NITROGEN 31 MG/DL (7-18); BUN/CREATININE RATIO 33.7 (6.6-38.0); CALCIUM 9.4 MG/DL (8.5-10.1); CHLORIDE 104 MMOL/L (99-107); CREATININE 0.92 MG/DL (0.40-0.90); GLUCOSE 205 MG/DL (70-104); MAGNESIUM 1.8 MG/DL (1.5-2.4); SODIUM 140 MMOL/L (135-145); TOTAL CARBON DIOXIDE 30.1 MMOL/L (24-32); eGFR 62 ML/MIN
--- NOTE | 2020-02-23 06:14 | NUR ---
Problems reprioritized. Patient report given, questions answered & plan of care reviewed with Misael stone.
--- NOTE | 2020-02-23 06:14 | NUR ---
Problems reprioritized. Patient report given, questions answered & plan of care reviewed with JOANN Logan.
--- NOTE | 2020-02-23 06:20 | NUR ---
Patient in room PCU 3024B. I have received report from Ghazal DAVID and had the opportunity to ask questions and assume patient care.
[2020-02-23 06:30] VITALS: BP 139/68
[2020-02-23] MEDS: CefTRIAXone/D5W-Rocephin 1gm 50 ML IV SCH ×2 (07:15→07:49)
[2020-02-23] MEDS: heparin, porcine 5000 units/ml vial SQ SCH ×2 (07:17→21:29)
[2020-02-23] MEDS: FLUoxetine 20mg capsule PO SCH (07:18)
[2020-02-23] MEDS: lactobacillus rhamnosus 10,000 MMU CELLS/CAPSULE PO SCH ×2 (07:18→21:29)
[2020-02-23] MEDS: K and/or MAG REPLACEMENT MC SCH ×2 (08:00→20:00)
[2020-02-23] MEDS: insulin Lispro (HumaLOG) vial - multi-dose SQ SCH ×3 (08:35→21:23)
[2020-02-23] MEDS: azithromycin/NS 500mg/250ml 250 ML IV SCH (08:36)
[2020-02-23 11:00] VITALS: BP 131/73
[2020-02-23] MEDS ORDERED: albuterol 2.5 MG/3 ML nebule NEB PRN (11:35)
[2020-02-23] MEDS ORDERED: glimepiride 1 MG tablet PO SCH (11:42)
[2020-02-23] MEDS ORDERED: metFORMIN 500mg tablet PO SCH ×3 (12:00→18:00)
[2020-02-23] MEDS: PARoxetine 20mg tablet PO SCH (12:39)
[2020-02-23] MEDS: aspirin 81mg tablet.DR PO SCH (12:39)
[2020-02-23] MEDS: furosemide 40mg tablet PO SCH (12:39)
[2020-02-23] MEDS: duloxetine 30mg CAPSULE.DR PO SCH (12:39)
[2020-02-23] MEDS: montelukast 10mg tablet PO SCH (12:39)
--- NOTE | 2020-02-23 13:31 | NUR ---
Per Dr Marques, do not administer home meds Metformin and Glimepiride as patient is already receiving SQ insulin per hospital protocol
[2020-02-23 15:00] VITALS: BP 139/72
--- NOTE | 2020-02-23 15:00 | NUR ---
Student documentation: I have reviewed assessment performed and documented by Jadyn FRAUSTO [facility] .
[2020-02-23] MEDS: cyclobenzaprine 10mg tablet PO SCH (15:02)
[2020-02-23] MEDS: guaiFENesin/DM 10ml UD oral syrup PO PRN ×2 (16:47→22:13)
--- NOTE | 2020-02-23 18:05 | NUR ---
Problems reprioritized. Patient report given, questions answered & plan of care reviewed with Ghazal DAVID.
--- NOTE | 2020-02-23 18:12 | NUR ---
Patient in room PCU 3024. I have received report from RUIZ stone and had the opportunity to ask questions and assume patient care.
--- NOTE | 2020-02-23 18:23 | NUR ---
Patient in room U 3024L. I have received report from JOANN Logan and had the opportunity to ask questions and assume patient care.
[2020-02-23 18:30] VITALS: BP 122/80
[2020-02-23] MEDS ORDERED: METFORMIN HCL PO SCH (21:00)
[2020-02-23] MEDS: insulin glargine (Lantus) pen - multi-dose SQ SCH (21:26)
[2020-02-23 22:00] VITALS: BP 154/83
[2020-02-24] MEDS: cyclobenzaprine 10mg tablet PO SCH ×3 (00:52→15:03)
[2020-02-24 02:00] VITALS: BP 136/87
[2020-02-24] MEDS: methylPREDNISolone sod succ 125mg/2ml vial IV SCH ×4 (02:19→20:25)
[2020-02-24] MEDS: ipratropium/albuterol 3ml nebule NEB SCH ×6 (03:18→23:49)
[2020-02-24 05:14] LABS: BASOPHILS % (AUTO) 0.2 % (0-1); EOSINOPHILS % (AUTO) 0.1 % (0-6); HEMOGLOBIN 12.4 g/dl (12.0-16.0); LYMPHOCYTES # (AUTO) 0.6 X10'3 (1.1-4.8); LYMPHOCYTES % (AUTO) 5.6 % (21-51); MEAN CORPUSCULAR HGB CONC 32.5 g/dL (33.0-36.5); MEAN PLATELET VOLUME 8.9 FL (7.4-10.4); MONOCYTES # (AUTO) 0.3 X10'3 (0-0.9); MONOCYTES % (AUTO) 2.7 % (2-12); NEUTROPHILS # (AUTO) 10.2 X10'3 (1.8-7.7); NEUTROPHILS % (AUTO) 91.4 % (42-75); PLATELET COUNT 316 X10'3 (140-440); RED BLOOD COUNT 4.42 X10'6 (4.20-5.60); RED CELL DISTRIBUTION WIDTH 14.7 % (11.5-14.5); WHITE BLOOD COUNT 11.2 X10'3 (4.5-11.0)
--- NOTE | 2020-02-24 05:27 | NUR ---
Completed a full linen change + fresh gown for pt after she had a coughing fit that caused her to leak some urine into the bed. Cough non-productive. Pt resting comfortably with no other needs at this time.
[2020-02-24 05:28] LABS: ALBUMIN 3.8 G/DL (3.4-5.0); ANION GAP 9 (8-16); BLOOD UREA NITROGEN 28 MG/DL (7-18); BUN/CREATININE RATIO 27.7 (6.6-38.0); CALCIUM 9.4 MG/DL (8.5-10.1); CHLORIDE 101 MMOL/L (99-107); CREATININE 1.01 MG/DL (0.40-0.90); GLUCOSE 199 MG/DL (70-104); MAGNESIUM 1.7 MG/DL (1.5-2.4); SODIUM 139 MMOL/L (135-145); eGFR 56 ML/MIN
[2020-02-24 05:34] LABS: POTASSIUM 4.4 MMOL/L (3.5-5.1)
--- NOTE | 2020-02-24 05:51 | NUR ---
Student documentation: I have reviewed and agree with all interventions, assessments performed and documented by Jess FRAUSTO. Student Medication Administration: For this medication-pass time frame, all medication were reviewed, dispensed, administered and documented per hospital policy by Jess FRAUSTO.
--- NOTE | 2020-02-24 06:18 | NUR ---
Problems reprioritized. Patient report given, questions answered & plan of care reviewed with JOANN Logan.
--- NOTE | 2020-02-24 06:19 | NUR ---
Problems reprioritized. Patient report given, questions answered & plan of care reviewed with Doreen DAVID.
[2020-02-24 06:30] VITALS: BP 145/85
--- NOTE | 2020-02-24 06:55 | NUR ---
Patient in room PCU 3024B. I have received report from Ghazal DAVID and had the opportunity to ask questions and assume patient care.
[2020-02-24] MEDS: guaiFENesin/DM 10ml UD oral syrup PO PRN ×2 (07:07→20:26)
[2020-02-24] MEDS: CefTRIAXone/D5W-Rocephin 1gm 50 ML IV SCH (07:07)
[2020-02-24] MEDS: duloxetine 30mg CAPSULE.DR PO SCH (07:08)
[2020-02-24] MEDS: furosemide 40mg tablet PO SCH (07:08)
[2020-02-24] MEDS: PARoxetine 20mg tablet PO SCH (07:08)
[2020-02-24] MEDS: heparin, porcine 5000 units/ml vial SQ SCH ×2 (07:09→20:27)
[2020-02-24] MEDS: FLUoxetine 20mg capsule PO SCH (07:09)
[2020-02-24] MEDS: lactobacillus rhamnosus 10,000 MMU CELLS/CAPSULE PO SCH ×2 (07:09→20:26)
[2020-02-24] MEDS: aspirin 81mg tablet.DR PO SCH (07:09)
[2020-02-24] MEDS: montelukast 10mg tablet PO SCH (07:09)
[2020-02-24] MEDS: K and/or MAG REPLACEMENT MC SCH ×2 (08:00→20:00)
[2020-02-24] MEDS ORDERED: duloxetine 30mg CAPSULE.DR PO SCH (08:00)
[2020-02-24] MEDS: HYDROcodone/acetaminophen 10/325mg tab PO PRN ×3 (08:02→21:22)
[2020-02-24] MEDS: azithromycin/NS 500mg/250ml 250 ML IV SCH (08:03)
[2020-02-24] MEDS: insulin Lispro (HumaLOG) vial - multi-dose SQ SCH ×2 (09:32→19:24)
[2020-02-24 11:00] VITALS: BP 144/87
--- NOTE | 2020-02-24 11:14 | NUR ---
Paged PAGER ID: [phone] MESSAGE: Marcos Beltrán [id number]. Pt walked with therapy, pt complained of getting SOB quickly and needed to stop every few steps. Desat to 87% but recovered with 2L to 94%. PT told case management she doesn't need home PT, and has of family for help
[2020-02-24 15:00] VITALS: BP 139/70
[2020-02-24 18:00] VITALS: BP 146/85
--- NOTE | 2020-02-24 18:00 | NUR ---
Patient in room PCU 3024. I have received report from JOANN Logan and had the opportunity to ask questions and assume patient care.
--- NOTE | 2020-02-24 18:13 | NUR ---
Problems reprioritized. Patient report given, questions answered & plan of care reviewed with Jeaneth DAVID and Lisa DAVID.
--- NOTE | 2020-02-24 18:25 | NUR ---
Patient in room PCU 3024. I have received report from Doreen DAVID and had the opportunity to ask questions and assume patient care.
[2020-02-24] MEDS: insulin glargine (Lantus) pen - multi-dose SQ SCH (21:16)
[2020-02-25] MEDS: cyclobenzaprine 10mg tablet PO SCH ×2 (00:02→07:44)
[2020-02-25 02:00] VITALS: BP 161/82
[2020-02-25] MEDS: ipratropium/albuterol 3ml nebule NEB SCH ×3 (03:45→11:05)
--- NOTE | 2020-02-25 05:02 | NUR ---
Orientee documentation: I have reviewed and agree with all interventions, assessments performed and documented by JOANN Gonzalez.
[2020-02-25 06:00] VITALS: BP 153/91
[2020-02-25 06:11] LABS: BASOPHILS % (AUTO) 0.3 % (0-1); EOSINOPHILS % (AUTO) 0 % (0-6); HEMATOCRIT 38.5 % (35.0-45.0); HEMOGLOBIN 12.6 g/dl (12.0-16.0); LYMPHOCYTES # (AUTO) 1.1 X10'3 (1.1-4.8); LYMPHOCYTES % (AUTO) 11.9 % (21-51); MEAN CORPUSCULAR HEMOGLOBIN 28.2 PG (27.0-31.0); MEAN CORPUSCULAR HGB CONC 32.8 g/dL (33.0-36.5); MEAN CORPUSCULAR VOLUME 85.8 FL (78-98); MONOCYTES # (AUTO) 0.5 X10'3 (0-0.9); MONOCYTES % (AUTO) 5.9 % (2-12); NEUTROPHILS # (AUTO) 7.6 X10'3 (1.8-7.7); NEUTROPHILS % (AUTO) 81.9 % (42-75); PLATELET COUNT 323 X10'3 (140-440); RED BLOOD COUNT 4.49 X10'6 (4.20-5.60); RED CELL DISTRIBUTION WIDTH 14.7 % (11.5-14.5); WHITE BLOOD COUNT 9.2 X10'3 (4.5-11.0)
--- NOTE | 2020-02-25 06:11 | NUR ---
Problems reprioritized. Patient report given, questions answered & plan of care reviewed with JOANN Landis.
--- NOTE | 2020-02-25 06:14 | NUR ---
Problems reprioritized. Patient report given, questions answered & plan of care reviewed with Sabiha DAVID. Patient stable at transfer of care. All current needs met
--- NOTE | 2020-02-25 06:15 | NUR ---
Patient in room PCU 3024B. I have received report from Ari DAVID and Jeaneth DAVID and had the opportunity to ask questions and assume patient care.
[2020-02-25 06:22] LABS: ALBUMIN 3.8 G/DL (3.4-5.0); ANION GAP 10 (8-16); BLOOD UREA NITROGEN 29 MG/DL (7-18); BUN/CREATININE RATIO 33.3 (6.6-38.0); CALCIUM 9.8 MG/DL (8.5-10.1); CHLORIDE 100 MMOL/L (99-107); CREATININE 0.87 MG/DL (0.40-0.90); GLUCOSE 156 MG/DL (70-104); MAGNESIUM 1.9 MG/DL (1.5-2.4); POTASSIUM 3.5 MMOL/L (3.5-5.1); SODIUM 140 MMOL/L (135-145); TOTAL CARBON DIOXIDE 29.6 MMOL/L (24-32); eGFR 67 ML/MIN
[2020-02-25] MEDS: CefTRIAXone/D5W-Rocephin 1gm 50 ML IV SCH (07:44)
[2020-02-25] MEDS: heparin, porcine 5000 units/ml vial SQ SCH (07:44)
[2020-02-25] MEDS: montelukast 10mg tablet PO SCH (07:44)
[2020-02-25] MEDS: furosemide 40mg tablet PO SCH (07:44)
[2020-02-25] MEDS: aspirin 81mg tablet.DR PO SCH (07:44)
[2020-02-25] MEDS: duloxetine 30mg CAPSULE.DR PO SCH (07:44)
[2020-02-25] MEDS: FLUoxetine 20mg capsule PO SCH (07:44)
[2020-02-25] MEDS: lactobacillus rhamnosus 10,000 MMU CELLS/CAPSULE PO SCH (07:44)
[2020-02-25] MEDS: PARoxetine 20mg tablet PO SCH (07:44)
[2020-02-25] MEDS: K and/or MAG REPLACEMENT MC SCH (07:45)
[2020-02-25] MEDS: HYDROcodone/acetaminophen 10/325mg tab PO PRN (07:46)
[2020-02-25] MEDS ORDERED: predniSONE 20 mg tablet PO SCH (08:30)
[2020-02-25] MEDS ORDERED: CEFD300C3 PO (10:23)
[2020-02-25] MEDS ORDERED: PRED10TA PO (10:23)
[2020-02-25] MEDS ORDERED: IPRA3AMP9 NEB (10:23)
[2020-02-25 11:00] VITALS: BP 146/83
--- NOTE | 2020-02-25 12:52 | NUR ---
PAGER ID: [phone] MESSAGE: Sabiha morel [phone]. RE Marcos Lala [phone]. Pt requesting a couple days of [place] for at home? Would you write her a Rx? Thanks!
[2020-02-25] MEDS ORDERED: HYDR-4353 PO (12:54)
--- NOTE | 2020-02-25 13:00 | NUR ---
Per MD order by Dr. Christopher, patient is stable for discharge home. Discharge packet printed and reviewed with the patient. IV removed, tele monitor removed. Patient had sister bring in home oxygen concentrator and patient has this with her at this time. All discharge instructions, return precautions, and follow up discussed with the patient. All questions answered. New prescriptions escript to pharmacy of choice. Patient escorted via wheelchair to private vehicle to go home with family.
--- NOTE | 2020-02-25 15:53 | NUR ---
Pt discharged prior to RD being available for bedside DM education. Written education and RD contact information mailed to patient's address found in EMR. Will remain available. Addendum: 02/25/20 at [address] Amended: Links added.
[2020-02-25] MEDS ORDERED: CLON-529 PO (19:52)
[2020-02-25] MEDS ORDERED: PARO20TA6 PO (19:52)
[2020-02-25] MEDS ORDERED: METF-438 PO (19:52)
[2020-02-25] MEDS ORDERED: ALBU18HF2 INH (19:52)
[2020-02-25] MEDS ORDERED: GLIM4TAB7 PO (19:52)
== END 2020-02-25 12:00 | disposition home health service (06) | DRG 133 ==
LOC: ER 18:17 → ED HOLD 20:49 → PCU 3S 22:51 → CICU 2S 02-21 01:00 → PCU 3S 02-22 16:22
PROVIDERS: ADMIT Internal Medicine; ATTEND Internal Medicine
PROC: B32T1ZZ Computerized Tomography (CT Scan) of Left Pulmonary Artery using Low Osmolar Contrast (ICD-10-PCS; 2020-02-20)
PROC: B3201ZZ Computerized Tomography (CT Scan) of Thoracic Aorta using Low Osmolar Contrast (ICD-10-PCS; 2020-02-20)
PROC: B32S1ZZ Computerized Tomography (CT Scan) of Right Pulmonary Artery using Low Osmolar Contrast (ICD-10-PCS; 2020-02-20)
PROC: 5A09357 Assistance with Respiratory Ventilation, Less than 24 Consecutive Hours, Continuous Positive Airway Pressure (ICD-10-PCS; principal; 2020-02-21)
DX: J96.01 Acute respiratory failure with hypoxia (principal); E78.00 Pure hypercholesterolemia, unspecified; E78.5 Hyperlipidemia, unspecified; F17.210 Nicotine dependence, cigarettes, uncomplicated; F32.9 Major depressive disorder, single episode, unspecified; F41.9 Anxiety disorder, unspecified; N17.9 Acute kidney failure, unspecified; G89.29 Other chronic pain; M19.90 Unspecified osteoarthritis, unspecified site; M54.9 Dorsalgia, unspecified; E11.22 Type 2 diabetes mellitus with diabetic chronic kidney disease; I12.9 Hypertensive chronic kidney disease with stage 1 through stage 4 chronic kidney disease, or unspecified chronic kidney disease; N18.9 Chronic kidney disease, unspecified; J44.1 Chronic obstructive pulmonary disease with (acute) exacerbation; Z90.710 Acquired absence of both cervix and uterus; Z99.81 Dependence on supplemental oxygen; Z88.8 Allergy status to other drugs, medicaments and biological substances; Z90.49 Acquired absence of other specified parts of digestive tract; Z79.899 Other long term (current) drug therapy; Z79.82 Long term (current) use of aspirin; Z71.6 Tobacco abuse counseling
CPT/HCPCS: 36415; 36600; 71045; 71270; 80048; 80053; 81003; 82803; 82948; 83036; 83605; 83735; 83880; 84100; 84145; 84484; 85018; 85025; 85610; 85730; 87040; 87081; 93005; 94640; 94660; 94760; 97116; 97161; 97530; 99285; C9113; G0378; J0456; J0696; J1644; J1815; J2930; J3010; J7030; J7512; Q9967

== ENCOUNTER 2020-02-25 18:13 | Inpatient (IN) | payer MEDICAID ==
[~2020-02-25] VITALS: Ht 154.9 cm; Wt 64.1 kg
[~2020-02-25 18:13] MED LIST changes: -ACET-1025 PO; -ATOR10TA70 PO; +CEFD300C3 PO; -CHOL50004 PO; +HYDR-4353 PO; +IPRA3AMP9 NEB; -NICO-630 TD; -NICO-631 TD; +PRED10TA PO; -PRED20TA PO; +etomidate 2mg/ml inj. ONE
[2020-02-25] MEDS ORDERED: ipratropium/albuterol 3ml nebule NEB ONE (18:25)
[2020-02-25 18:49] LABS: BASOPHILS % (AUTO) 0.2 % (0-1); EOSINOPHILS % (AUTO) 0 % (0-6); HEMATOCRIT 38.6 % (35.0-45.0); HEMOGLOBIN 12.4 g/dl (12.0-16.0); LYMPHOCYTES # (AUTO) 1.1 X10'3 (1.1-4.8); LYMPHOCYTES % (AUTO) 8.7 % (21-51); MEAN CORPUSCULAR HEMOGLOBIN 27.5 PG (27.0-31.0); MEAN CORPUSCULAR VOLUME 85.9 FL (78-98); MEAN PLATELET VOLUME 8.5 FL (7.4-10.4); MONOCYTES # (AUTO) 0.9 X10'3 (0-0.9); MONOCYTES % (AUTO) 6.8 % (2-12); NEUTROPHILS % (AUTO) 84.3 % (42-75); PLATELET COUNT 317 X10'3 (140-440); RED CELL DISTRIBUTION WIDTH 14.5 % (11.5-14.5); WHITE BLOOD COUNT 13.1 X10'3 (4.5-11.0)
[2020-02-25 18:50] LABS: ABG BASE EXCESS 3.9 mmol/L (-2.0-2.0); ABG HCO3 30.7 mmol/L (22.0-26.0); ABG OXYGEN SATURATION 90.5 % (94-97); ABG PCO2 (T) 55.5 mmHg (32.0-45.0); ABG PO2 (T) 63.6 mmHg (75.0-100.0); FCOHb 0.8 % (0.0-3.9); FLOW 4 L/min; FO2Hb 89.8 % (94-97); PATIENT TEMPERATURE 36.9; TOTAL HEMOGLOBIN 13.3 G/dl (12.0-16.0)
[2020-02-25 19:07] LABS: ALBUMIN 3.6 G/DL (3.4-5.0); ANION GAP 7 (8-16); BLOOD UREA NITROGEN 38 MG/DL (7-18); CALCIUM 9.4 MG/DL (8.5-10.1); CHLORIDE 98 MMOL/L (99-107); CREATININE 1.31 MG/DL (0.40-0.90); POTASSIUM 4.2 MMOL/L (3.5-5.1); SODIUM 133 MMOL/L (135-145); TOTAL CARBON DIOXIDE 28.4 MMOL/L (24-32); TROPONIN I < 0.04 NG/ML (0.0-0.05); eGFR 42 ML/MIN
[2020-02-25 19:11] LABS: GLUCOSE 451 MG/DL (70-104)
[2020-02-25] MEDS ORDERED: METF-438 PO (19:52)
[2020-02-25] MEDS ORDERED: CLON-529 PO (19:52)
[2020-02-25] MEDS ORDERED: PARO20TA6 PO (19:52)
[2020-02-25] MEDS ORDERED: ALBU18HF2 INH (19:52)
[2020-02-25] MEDS ORDERED: GLIM4TAB7 PO (19:52)
[2020-02-25] MEDS ORDERED: mag hydrox/Alum hydrox/simeth 30ml oral suspension PO PRN (21:10)
[2020-02-25] MEDS ORDERED: potassium Cl 20 mEq SR tablet PO PRN ×2 (21:10)
[2020-02-25] MEDS ORDERED: insulin Lispro (HumaLOG) vial - multi-dose SQ SCH (21:10)
[2020-02-25] MEDS ORDERED: ondansetron/PF 4mg/2ml inj IV PRN (21:10)
[2020-02-25] MEDS ORDERED: glucagon, human recombinant 1mg kit SUBCUT PRN (21:10)
[2020-02-25] MEDS ORDERED: magnesium hydroxide 30ml (MOM) UD suspension PO PRN (21:10)
[2020-02-25] MEDS ORDERED: acetaminophen 325mg tablet PO PRN (21:10)
[2020-02-25] MEDS ORDERED: MESSAGE TO PHARMACY PO ONE (21:10)
[2020-02-25] MEDS ORDERED: dextrose ORAL solution 15 GM/59 ML bottle PO PRN ×2 (21:10)
[2020-02-25] MEDS ORDERED: potassium CL 10mEq/100ml bag 100 ML IV PRN ×2 (21:10)
[2020-02-25] MEDS: normal saline 1000ml 1,000 ML IV SCH (22:02)
--- NOTE | 2020-02-25 23:48 | NUR ---
Patient in room ED 13. I have received report from JOANN Bernard and had the opportunity to ask questions and assume patient care.
[2020-02-26] VITALS (9 sets, daily range): BP systolic 91–168; BP diastolic 57–88
--- NOTE | 2020-02-26 00:01 | NUR ---
PT UP TO BSC AFTER COUGHING FIT AND RR 36 AND SHE IS WHEEZING. SHE REQUESTS COUGH MEDICINE. DR. VANN CALLED AND WILL ORDER COUGH MEDS. PT TO BE TAKEN TO FLOOR SHORTLY.
[2020-02-26] MEDS ORDERED: guaiFENesin 200 MG/10 ML oral syrup UD cup PO PRN (00:05)
[2020-02-26] MEDS: cyclobenzaprine 10mg tablet PO SCH ×3 (00:06→16:00)
[2020-02-26] MEDS: albuterol 2.5 MG/3 ML nebule NEB PRN ×2 (00:41→08:05)
[2020-02-26 05:52] LABS: BASOPHILS % (AUTO) 0.3 % (0-1); EOSINOPHILS % (AUTO) 0 % (0-6); HEMATOCRIT 39.3 % (35.0-45.0); HEMOGLOBIN 12.9 g/dl (12.0-16.0); LYMPHOCYTES # (AUTO) 1.3 X10'3 (1.1-4.8); LYMPHOCYTES % (AUTO) 10.6 % (21-51); MEAN CORPUSCULAR HEMOGLOBIN 28.1 PG (27.0-31.0); MEAN CORPUSCULAR HGB CONC 32.8 g/dL (33.0-36.5); MEAN CORPUSCULAR VOLUME 85.8 FL (78-98); MEAN PLATELET VOLUME 8.5 FL (7.4-10.4); MONOCYTES # (AUTO) 0.8 X10'3 (0-0.9); MONOCYTES % (AUTO) 6.4 % (2-12); NEUTROPHILS # (AUTO) 10.3 X10'3 (1.8-7.7); NEUTROPHILS % (AUTO) 82.7 % (42-75); PLATELET COUNT 332 X10'3 (140-440); RED BLOOD COUNT 4.58 X10'6 (4.20-5.60); RED CELL DISTRIBUTION WIDTH 14.4 % (11.5-14.5); WHITE BLOOD COUNT 12.5 X10'3 (4.5-11.0)
[2020-02-26] MEDS ORDERED: HYDROcodone/acetaminophen 10/325mg tab PO PRN (05:55)
[2020-02-26] MEDS ORDERED: HYDROcodone/acetaminophen 5mg/325mg tablet PO PRN (05:55)
[2020-02-26 06:10] LABS: ALANINE AMINOTRANSFERASE 38 U/L (12-78); ALBUMIN/GLOBULIN RATIO 1.1 (1.1-1.5); ALKALINE PHOSPHATASE 86 IU/L (46-116); ANION GAP 6 (8-16); ASPARTATE AMINO TRANSFERASE 18 U/L (10-37); BILIRUBIN,TOTAL 0.4 MG/DL (0.1-1.0); BLOOD UREA NITROGEN 31 MG/DL (7-18); CALCIUM 9.7 MG/DL (8.5-10.1); CHLORIDE 100 MMOL/L (99-107); CREATININE 0.97 MG/DL (0.40-0.90); GLUCOSE 190 MG/DL (70-104); POTASSIUM 3.8 MMOL/L (3.5-5.1); SODIUM 140 MMOL/L (135-145); TOTAL CARBON DIOXIDE 33.7 MMOL/L (24-32); TOTAL PROTEIN 7.7 G/DL (6.4-8.2); eGFR 59 ML/MIN
--- NOTE | 2020-02-26 06:12 | NUR ---
Problems reprioritized. Patient report given, questions answered & plan of care reviewed with JOANN Felix.
[2020-02-26] MEDS: heparin, porcine 5000 units/ml vial SQ SCH ×2 (07:34→20:31)
[2020-02-26] MEDS: furosemide 40mg tablet PO SCH (07:35)
[2020-02-26] MEDS: cloNIDine 0.1 mg tablet PO SCH ×2 (07:35→20:00)
[2020-02-26] MEDS: PARoxetine 20mg tablet PO SCH (07:35)
[2020-02-26] MEDS ORDERED: methylPREDNISolone sod succ/PF 40mg inj. IV SCH (08:00)
[2020-02-26] MEDS: K and/or MAG REPLACEMENT MC SCH ×2 (08:00→19:43)
[2020-02-26] MEDS ORDERED: PARoxetine 20mg tablet PO SCH (08:00)
[2020-02-26] MEDS ORDERED: duloxetine 30mg CAPSULE.DR PO SCH ×2 (08:00)
--- NOTE | 2020-02-26 09:27 | NUR ---
PAGER ID: [phone] MESSAGE: [phone] Marcos Lala Found in tripod position with audible wheezes. On auscultation diffuse wheezing throughout. PRN breathing tx x1. Verbalizes relief though still has very audible wheezing. Non-compliant. Just FYI. Felix [id number]
--- NOTE | 2020-02-26 09:29 | NUR ---
PAGER ID: [phone] MESSAGE: [id number] Marcos Lala Found in tripod position with audible wheezes. On auscultation diffuse wheezing throughout. PRN breathing tx x1. Verbalizes relief though still has very audible wheezing. Non-compliant. Just FYI. Felix [id number]
[2020-02-26] MEDS ORDERED: ipratropium/albuterol 3ml nebule NEB PRN ×2 (09:50→16:55)
--- NOTE | 2020-02-26 10:26 | NUR ---
Paged RT re: new orders for BiPAP and flutter subsequent
[2020-02-26] MEDS: ipratropium/albuterol 3ml nebule NEB SCH ×4 (11:02→22:30)
[2020-02-26] MEDS ORDERED: LORazepam 1 MG tablet PO PRN (13:35)
[2020-02-26] MEDS: CefTRIAXone/D5W-Rocephin 1gm 50 ML IV SCH (14:18)
--- NOTE | 2020-02-26 14:39 | NUR ---
DM consult: A1C 8.3. Pt re-admit w/ respiratory failure after smoking once returning home yesterday upon discharge per EMR. DX COPD Exacerbation per EMR. Pt currently receiving breathing treatments also w/ episodes of non-compliance per EMR. Written DM ed w/ RD contact information placed in pt chart. Addendum: 02/26/20 at [address] Amended: Links added.
--- NOTE | 2020-02-26 15:39 | NUR ---
PAGER ID: [phone] MESSAGE: [phone] Marcos Lala Continues to pull off BiPAP. Becoming combative w/ sitter and RT. May I have restraints? Elvira [phone]
[2020-02-26] MEDS ORDERED: LORazepam 2 mg/ml vial IV PRN (16:20)
[2020-02-26 16:41] LABS: ABG BASE EXCESS 3.9 mmol/L (-2.0-2.0); ABG HCO3 31.4 mmol/L (22.0-26.0); ABG OXYGEN SATURATION 96.6 % (94-97); ABG PCO2 (T) 60.3 mmHg (32.0-45.0); ABG PO2 (T) 92.4 mmHg (75.0-100.0); ALLEN'S TEST POSITIVE; FCOHb 0.1 % (0.0-3.9); FMetHb 0.3 % (0.0-1.5); FO2Hb 96.2 % (94-97); RESPIRATORY RATE 10 b/min; TIDAL VOLUME 548 mL; TOTAL HEMOGLOBIN 13.3 G/dl (12.0-16.0)
[2020-02-26] MEDS ORDERED: midazolam 100mg in NS 100ml 100 ML IV PRN (16:51)
[2020-02-26] MEDS ORDERED: FENTANYL-0.9 % NACL/PF 100 ML IV PRN (16:51)
[2020-02-26] MEDS ORDERED: fentaNYL/PF 50MCG/1 ML 2ML syringe IV PRN (16:55)
[2020-02-26] MEDS ORDERED: midazolam 2 mg/2 ml injection IV ONE ×3 (16:55→17:35)
[2020-02-26] MEDS ORDERED: midazolam 2 mg/2 ml injection ONE ×3 (17:11→17:22)
[2020-02-26] MEDS ORDERED: etomidate 2mg/ml inj. IV ONE (17:35)
[2020-02-26] MEDS: FENTANYL-0.9 % NACL/PF 100 ML IV PRN (17:42)
[2020-02-26] MEDS: midazolam 100mg in NS 100ml 100 ML IV PRN (17:42)
--- NOTE | 2020-02-26 17:45 | NUR ---
Attempted to call report to receiving ICU nurse. Spoke with Harris DAVID who states he will find receiving nurse and they will call if they want transfer report.
[2020-02-26 17:50] LABS: ABG BASE EXCESS 3.2 mmol/L (-2.0-2.0); ABG HCO3 32.1 mmol/L (22.0-26.0); ABG OXYGEN SATURATION 96.2 % (94-97); ABG PCO2 (T) 70.6 mmHg (32.0-45.0); ABG PO2 (T) 97.5 mmHg (75.0-100.0); ALLEN'S TEST POSITIVE; FCOHb 0.3 % (0.0-3.9); FMetHb 0.1 % (0.0-1.5); FO2Hb 95.8 % (94-97); RESPIRATORY RATE 20 b/min; TIDAL VOLUME 400 mL; TOTAL HEMOGLOBIN 13.2 G/dl (12.0-16.0)
[2020-02-26] MEDS ORDERED: dextrose ORAL solution 15 GM/59 ML bottle PO PRN ×2 (17:55)
[2020-02-26] MEDS ORDERED: glucagon, human recombinant 1mg kit SUBCUT PRN (17:55)
[2020-02-26] MEDS ORDERED: MESSAGE TO PHARMACY PO ONE (17:55)
[2020-02-26] MEDS ORDERED: dextrose 50%-water 50ml dispensing syringe IV PRN ×2 (17:55)
--- NOTE | 2020-02-26 17:55 | NUR ---
Received patient from telemetry floor, Dr. Lopez ordered 12 of versed and 40 of etomidate over 10 min period to have patient no longer moving for intubation and placement of Right IJ. Fentanyl and versed IV drips started. CXR taken and Dr. Lopez approved. Will continue to monitor.
[2020-02-26] MEDS ORDERED: LIDOcaine 2% 10ml TOPICAL JELLY (Urojet) TP ONE (18:30)
--- NOTE | 2020-02-26 18:44 | NUR ---
Problems reprioritized. Patient report given, questions answered & plan of care reviewed with Mac RN.
[2020-02-26] MEDS: azithromycin/NS 500mg/250ml 250 ML IV SCH (19:42)
[2020-02-26] MEDS: dextrose 50%-water 50ml dispensing syringe IV PRN (20:30)
[2020-02-26] MEDS: methylPREDNISolone sod succ 125mg/2ml vial IV SCH (20:31)
[2020-02-26] MEDS: insulin glargine (Lantus) pen - multi-dose SQ SCH (21:00)
[2020-02-26] MEDS ORDERED: insulin glargine (Lantus) pen - multi-dose SQ SCH (21:00)
--- NOTE | 2020-02-26 21:00 | NUR ---
RN Note -MD Communication Called Ifeanyi Baxter regarding Pt peak pressuring and bucking vent. Vent settings adjusted, pt adequately sedated. Lung sounds are wheezy and sonorous. Received order continuous neb
[2020-02-26] MEDS ORDERED: albuterol 2.5 MG/3 ML nebule CONTNEB PRN (23:55)
[2020-02-27] VITALS (24 sets, daily range): BP systolic 94–137; BP diastolic 46–69
[2020-02-27] MEDS: FENTANYL-0.9 % NACL/PF 100 ML IV PRN ×3 (00:30→18:32)
[2020-02-27] MEDS: midazolam 100mg in NS 100ml 100 ML IV PRN ×3 (00:31→18:19)
[2020-02-27] MEDS: normal saline 1000ml 1,000 ML IV SCH ×3 (02:08→22:25)
[2020-02-27] MEDS: ipratropium/albuterol 3ml nebule NEB SCH ×6 (03:26→22:42)
[2020-02-27] MEDS: methylPREDNISolone sod succ 125mg/2ml vial IV SCH ×4 (03:28→20:26)
[2020-02-27 03:45] LABS: ABG BASE EXCESS 0.9 mmol/L (-2.0-2.0); ABG HCO3 25.7 mmol/L (22.0-26.0); ABG PCO2 (T) 42.2 mmHg (32.0-45.0); ABG PO2 (T) 66.2 mmHg (75.0-100.0); ALLEN'S TEST POSITIVE; FCOHb 0.3 % (0.0-3.9); FMetHb 0.3 % (0.0-1.5); FO2Hb 92.4 % (94-97); PATIENT TEMPERATURE 37.5; PEEP 5 cm H2O; RESPIRATORY RATE 20 b/min; TIDAL VOLUME 400 mL; TOTAL HEMOGLOBIN 11.7 G/dl (12.0-16.0)
[2020-02-27 03:50] LABS: BASOPHILS % (AUTO) 0.1 % (0-1); EOSINOPHILS % (AUTO) 0 % (0-6); HEMOGLOBIN 11.2 g/dl (12.0-16.0); LYMPHOCYTES # (AUTO) 0.7 X10'3 (1.1-4.8); LYMPHOCYTES % (AUTO) 9.6 % (21-51); MEAN CORPUSCULAR HEMOGLOBIN 28.7 PG (27.0-31.0); MEAN PLATELET VOLUME 8.5 FL (7.4-10.4); MONOCYTES # (AUTO) 0.4 X10'3 (0-0.9); NEUTROPHILS # (AUTO) 6.6 X10'3 (1.8-7.7); NEUTROPHILS % (AUTO) 85.3 % (42-75); PLATELET COUNT 277 X10'3 (140-440); RED BLOOD COUNT 3.91 X10'6 (4.20-5.60); RED CELL DISTRIBUTION WIDTH 14.2 % (11.5-14.5); WHITE BLOOD COUNT 7.8 X10'3 (4.5-11.0)
[2020-02-27 03:54] LABS: ALANINE AMINOTRANSFERASE 30 U/L (12-78); ALBUMIN 3.3 G/DL (3.4-5.0); ALBUMIN/GLOBULIN RATIO 1.1 (1.1-1.5); ALKALINE PHOSPHATASE 68 IU/L (46-116); ANION GAP 8 (8-16); ASPARTATE AMINO TRANSFERASE 19 U/L (10-37); BILIRUBIN,TOTAL 0.5 MG/DL (0.1-1.0); BLOOD UREA NITROGEN 37 MG/DL (7-18); BUN/CREATININE RATIO 31.1 (6.6-38.0); CALCIUM 8.8 MG/DL (8.5-10.1); CHLORIDE 104 MMOL/L (99-107); CREATININE 1.19 MG/DL (0.40-0.90); GLUCOSE 220 MG/DL (70-104); POTASSIUM 4.3 MMOL/L (3.5-5.1); SODIUM 141 MMOL/L (135-145); TOTAL CARBON DIOXIDE 29.5 MMOL/L (24-32); TOTAL PROTEIN 6.3 G/DL (6.4-8.2); eGFR 46 ML/MIN
--- NOTE | 2020-02-27 06:30 | NUR ---
Patient in room CICU 2009. I have received report from JOANN Duke and had the opportunity to ask questions and assume patient care.
[2020-02-27] MEDS: K and/or MAG REPLACEMENT MC SCH ×2 (07:54→20:00)
[2020-02-27 08:06] LABS: ABG BASE EXCESS 4.2 mmol/L (-2.0-2.0); ABG HCO3 30.1 mmol/L (22.0-26.0); ABG OXYGEN SATURATION 94.4 % (94-97); ABG PCO2 (T) 52.1 mmHg (32.0-45.0); ABG PO2 (T) 76.3 mmHg (75.0-100.0); ALLEN'S TEST POSITIVE; FCOHb 0.3 % (0.0-3.9); FO2Hb 94.1 % (94-97); PATIENT TEMPERATURE 37.4; RESPIRATORY RATE 16 b/min; TIDAL VOLUME 467 mL; TOTAL HEMOGLOBIN 11.7 G/dl (12.0-16.0)
[2020-02-27] MEDS: CefTRIAXone/D5W-Rocephin 1gm 50 ML IV SCH (08:34)
[2020-02-27] MEDS: azithromycin/NS 500mg/250ml 250 ML IV SCH (08:35)
[2020-02-27] MEDS: duloxetine 30mg CAPSULE.DR PO SCH (08:38)
[2020-02-27] MEDS: cyclobenzaprine 10mg tablet PO SCH ×3 (08:38→15:12)
[2020-02-27] MEDS: furosemide 40mg tablet PO SCH (08:38)
[2020-02-27] MEDS: cloNIDine 0.1 mg tablet PO SCH ×2 (08:38→20:25)
[2020-02-27] MEDS: PARoxetine 20mg tablet PO SCH (08:38)
[2020-02-27] MEDS: heparin, porcine 5000 units/ml vial SQ SCH ×2 (08:39→20:26)
--- NOTE | 2020-02-27 13:43 | NUR ---
Initial: Pt re-admit with COPD exacerbation and acute and chronic respiratory failure. Pt started on BiPAP however ultimately required intubation per physician notes. Pt with an OG tube in place. TF recommendations below for if prolonged intubation and to receive alternative nutrition. Pt previously with 100% PO intake x 1 meal on CHO controlled diet prior to intubation. Diet order remains active, d/w RN to discontinue diet as pt currently intubated. Will continue to follow closely and make recommendations as appropriate. Recommendations: 1) IF TF, continuous Vital High Protein with goal rate of 60 mL/hr 2) IF TF, additional 200 mL water flush Q4H 3) IF TF, prealbumin q Sunday/; daily weights 4) Once extubated, diet advancement to CHO controlled as medically indicated Addendum: 02/27/20 at [address] Amended: Links added.
[2020-02-27] MEDS: insulin Lispro (HumaLOG) vial - multi-dose SQ SCH ×2 (14:50→20:40)
--- NOTE | 2020-02-27 18:30 | NUR ---
Patient in room CICU 2009. I have received report from JOANN García and had the opportunity to ask questions and assume patient care.
[2020-02-27] MEDS: lactobacillus rhamnosus 10,000 MMU CELLS/CAPSULE PO SCH (20:25)
[2020-02-27] MEDS: insulin glargine (Lantus) pen - multi-dose SQ SCH (20:41)
[2020-02-27] MEDS: mineral oil/petrolatum ophthal oint EACHEYE SCH (20:44)
--- NOTE | 2020-02-27 21:25 | NUR ---
Patient picked up by [facility]. Addendum: 02/27/20 at 2140 by Avis Olivares RN disregard, wrong patient
[2020-02-28] VITALS (25 sets, daily range): BP systolic 96–125; BP diastolic 42–62
[2020-02-28] MEDS: cyclobenzaprine 10mg tablet PO SCH ×4 (00:39→23:54)
[2020-02-28] MEDS: mineral oil/petrolatum ophthal oint EACHEYE SCH ×4 (01:42→19:22)
[2020-02-28] MEDS: methylPREDNISolone sod succ 125mg/2ml vial IV SCH ×4 (01:42→19:21)
[2020-02-28] MEDS: insulin Lispro (HumaLOG) vial - multi-dose SQ SCH ×4 (01:45→19:34)
[2020-02-28 02:07] LABS: BASOPHILS % (AUTO) 0.2 % (0-1); EOSINOPHILS % (AUTO) 0 % (0-6); HEMATOCRIT 31.1 % (35.0-45.0); HEMOGLOBIN 10.3 g/dl (12.0-16.0); LYMPHOCYTES # (AUTO) 0.6 X10'3 (1.1-4.8); LYMPHOCYTES % (AUTO) 5.9 % (21-51); MEAN CORPUSCULAR HEMOGLOBIN 28.7 PG (27.0-31.0); MEAN CORPUSCULAR HGB CONC 33.1 g/dL (33.0-36.5); MEAN CORPUSCULAR VOLUME 86.6 FL (78-98); MEAN PLATELET VOLUME 8.6 FL (7.4-10.4); MONOCYTES # (AUTO) 0.4 X10'3 (0-0.9); MONOCYTES % (AUTO) 3.7 % (2-12); NEUTROPHILS # (AUTO) 8.6 X10'3 (1.8-7.7); NEUTROPHILS % (AUTO) 90.2 % (42-75); PLATELET COUNT 261 X10'3 (140-440); RED BLOOD COUNT 3.58 X10'6 (4.20-5.60); RED CELL DISTRIBUTION WIDTH 14.6 % (11.5-14.5); WHITE BLOOD COUNT 9.6 X10'3 (4.5-11.0)
[2020-02-28 02:21] LABS: ALANINE AMINOTRANSFERASE 23 U/L (12-78); ALBUMIN 2.8 G/DL (3.4-5.0); ALKALINE PHOSPHATASE 59 IU/L (46-116); ANION GAP 6 (8-16); ASPARTATE AMINO TRANSFERASE 17 U/L (10-37); BILIRUBIN,TOTAL 0.3 MG/DL (0.1-1.0); BLOOD UREA NITROGEN 32 MG/DL (7-18); BUN/CREATININE RATIO 31.4 (6.6-38.0); CALCIUM 8.5 MG/DL (8.5-10.1); CHLORIDE 107 MMOL/L (99-107); CREATININE 1.02 MG/DL (0.40-0.90); GLUCOSE 178 MG/DL (70-104); POTASSIUM 4.1 MMOL/L (3.5-5.1); SODIUM 143 MMOL/L (135-145); TOTAL CARBON DIOXIDE 30.5 MMOL/L (24-32); TOTAL PROTEIN 5.7 G/DL (6.4-8.2); eGFR 55 ML/MIN
[2020-02-28] MEDS: midazolam 100mg in NS 100ml 100 ML IV PRN ×3 (02:46→21:04)
[2020-02-28] MEDS: ipratropium/albuterol 3ml nebule NEB SCH ×6 (03:44→23:05)
[2020-02-28 04:25] LABS: ABG BASE EXCESS 2.5 mmol/L (-2.0-2.0); ABG HCO3 27.2 mmol/L (22.0-26.0); ABG OXYGEN SATURATION 89.7 % (94-97); ABG PCO2 (T) 43.4 mmHg (32.0-45.0); ABG PO2 (T) 60.8 mmHg (75.0-100.0); ALLEN'S TEST POSITIVE; FCOHb 0.3 % (0.0-3.9); FMetHb 0.3 % (0.0-1.5); FO2Hb 89.2 % (94-97); PATIENT TEMPERATURE 37.5; PEEP 5 cm H2O; RESPIRATORY RATE 20 b/min; TIDAL VOLUME 400 mL
[2020-02-28] MEDS: FENTANYL-0.9 % NACL/PF 100 ML IV PRN ×2 (05:23→15:31)
--- NOTE | 2020-02-28 06:26 | NUR ---
Problems reprioritized. Patient report given, questions answered & plan of care reviewed with JOANN Rolle.
[2020-02-28] MEDS: PARoxetine 20mg tablet PO SCH (08:00)
[2020-02-28] MEDS: K and/or MAG REPLACEMENT MC SCH ×2 (08:00→20:00)
[2020-02-28] MEDS: duloxetine 30mg CAPSULE.DR PO SCH (08:00)
[2020-02-28] MEDS: cloNIDine 0.1 mg tablet PO SCH ×2 (08:42→19:22)
[2020-02-28] MEDS: CefTRIAXone/D5W-Rocephin 1gm 50 ML IV SCH (08:42)
[2020-02-28] MEDS: furosemide 40mg tablet PO SCH (08:43)
[2020-02-28] MEDS: azithromycin/NS 500mg/250ml 250 ML IV SCH (08:43)
[2020-02-28] MEDS: lactobacillus rhamnosus 10,000 MMU CELLS/CAPSULE PO SCH ×2 (08:43→19:22)
[2020-02-28] MEDS: heparin, porcine 5000 units/ml vial SQ SCH ×2 (08:46→19:22)
[2020-02-28] MEDS: normal saline 1000ml 1,000 ML IV SCH (15:32)
--- NOTE | 2020-02-28 18:14 | NUR ---
Problems reprioritized. Patient report given, questions answered & plan of care reviewed with Raya DAVID.
--- NOTE | 2020-02-28 18:23 | NUR ---
Patient in room CICU 2009. I have received report and had the opportunity to ask questions and assume patient care.
[2020-02-28] MEDS: insulin glargine (Lantus) pen - multi-dose SQ SCH (19:36)
[2020-02-29] VITALS (23 sets, daily range): BP systolic 90–120; BP diastolic 49–68
[2020-02-29] MEDS: methylPREDNISolone sod succ 125mg/2ml vial IV SCH ×4 (01:01→19:09)
[2020-02-29] MEDS: mineral oil/petrolatum ophthal oint EACHEYE SCH ×4 (01:02→19:10)
[2020-02-29] MEDS: FENTANYL-0.9 % NACL/PF 100 ML IV PRN ×2 (01:02→21:18)
[2020-02-29] MEDS: insulin Lispro (HumaLOG) vial - multi-dose SQ SCH ×3 (01:11→14:18)
[2020-02-29 01:43] LABS: BASOPHILS % (AUTO) 0.1 % (0-1); EOSINOPHILS % (AUTO) 0 % (0-6); HEMATOCRIT 30.9 % (35.0-45.0); HEMOGLOBIN 10.1 g/dl (12.0-16.0); LYMPHOCYTES # (AUTO) 0.5 X10'3 (1.1-4.8); LYMPHOCYTES % (AUTO) 4.8 % (21-51); MEAN CORPUSCULAR HEMOGLOBIN 28.4 PG (27.0-31.0); MEAN CORPUSCULAR HGB CONC 32.7 g/dL (33.0-36.5); MEAN CORPUSCULAR VOLUME 86.8 FL (78-98); MEAN PLATELET VOLUME 8.4 FL (7.4-10.4); MONOCYTES # (AUTO) 0.3 X10'3 (0-0.9); MONOCYTES % (AUTO) 2.7 % (2-12); NEUTROPHILS # (AUTO) 10.3 X10'3 (1.8-7.7); NEUTROPHILS % (AUTO) 92.4 % (42-75); PLATELET COUNT 260 X10'3 (140-440); RED BLOOD COUNT 3.57 X10'6 (4.20-5.60); RED CELL DISTRIBUTION WIDTH 14.9 % (11.5-14.5); WHITE BLOOD COUNT 11.1 X10'3 (4.5-11.0)
[2020-02-29 01:49] LABS: ALANINE AMINOTRANSFERASE 23 U/L (12-78); ALBUMIN 2.8 G/DL (3.4-5.0); ALKALINE PHOSPHATASE 57 IU/L (46-116); ANION GAP 6 (8-16); ASPARTATE AMINO TRANSFERASE 12 U/L (10-37); BILIRUBIN,TOTAL 0.2 MG/DL (0.1-1.0); BLOOD UREA NITROGEN 37 MG/DL (7-18); BUN/CREATININE RATIO 33.6 (6.6-38.0); CALCIUM 8.7 MG/DL (8.5-10.1); CHLORIDE 107 MMOL/L (99-107); GLUCOSE 135 MG/DL (70-104); POTASSIUM 3.7 MMOL/L (3.5-5.1); SODIUM 142 MMOL/L (135-145); TOTAL CARBON DIOXIDE 29.1 MMOL/L (24-32); TOTAL PROTEIN 5.7 G/DL (6.4-8.2); eGFR 51 ML/MIN
[2020-02-29] MEDS: ipratropium/albuterol 3ml nebule NEB SCH ×6 (03:16→23:05)
[2020-02-29 03:36] LABS: ABG BASE EXCESS -0.2 mmol/L (-2.0-2.0); ABG HCO3 24.4 mmol/L (22.0-26.0); ABG OXYGEN SATURATION 86.9 % (94-97); ABG PCO2 (T) 39.6 mmHg (32.0-45.0); ALLEN'S TEST POSITIVE; FCOHb 0.3 % (0.0-3.9); FMetHb 0.3 % (0.0-1.5); FO2Hb 86.4 % (94-97); PATIENT TEMPERATURE 37.2; PEEP 5 cm H2O; RESPIRATORY RATE 20 b/min; TIDAL VOLUME 400 mL; TOTAL HEMOGLOBIN 11.4 G/dl (12.0-16.0)
[2020-02-29] MEDS: midazolam 100mg in NS 100ml 100 ML IV PRN ×2 (06:30→14:16)
[2020-02-29] MEDS: normal saline 1000ml 1,000 ML IV SCH ×2 (07:28→19:20)
[2020-02-29] MEDS: K and/or MAG REPLACEMENT MC SCH ×2 (08:00→19:20)
[2020-02-29] MEDS: CefTRIAXone/D5W-Rocephin 1gm 50 ML IV SCH (08:30)
[2020-02-29] MEDS: heparin, porcine 5000 units/ml vial SQ SCH ×2 (08:31→19:10)
[2020-02-29] MEDS: azithromycin/NS 500mg/250ml 250 ML IV SCH (08:31)
[2020-02-29] MEDS: lactobacillus rhamnosus 10,000 MMU CELLS/CAPSULE PO SCH ×2 (08:32→19:09)
[2020-02-29] MEDS: duloxetine 30mg CAPSULE.DR PO SCH (08:32)
[2020-02-29] MEDS: PARoxetine 20mg tablet PO SCH (08:32)
[2020-02-29] MEDS: cloNIDine 0.1 mg tablet PO SCH ×2 (08:32→19:19)
[2020-02-29] MEDS: cyclobenzaprine 10mg tablet PO SCH ×2 (08:32→16:05)
[2020-02-29] MEDS: furosemide 40mg tablet PO SCH (08:32)
--- NOTE | 2020-02-29 09:55 | NUR ---
Roman Consult: Roman yAoub; skin intact. HALLIE d/w RN regarding cancelling current PO diet order if MD agreeable since intubated and NPO at this time. Addendum: 02/29/20 at [address] Amended: Links added.
--- NOTE | 2020-02-29 12:24 | NUR ---
TF Consult: TF to start today per rail equipment operator; recs below. Will monitor for EN tolerance. Roman Consult: Roman 12; skin intact. HALLIE d/w RN regarding cancelling current PO diet order if MD agreeable since intubated and NPO at this time. Recommendations: 1) OGTF per MD using continuous Vital High Protein with goal rate of 60 mL/hr; to provide 1440ml fluid, 1210ml free water, 1440 kcals, and 126g protein. 2) additional 200 mL water flush Q4H 3) prealbumin q Sunday/; daily weights 4) Once extubated, diet advancement to CHO controlled as medically indicated Addendum: 02/29/20 at [address] Amended: Links added.
--- NOTE | 2020-02-29 14:59 | NUR ---
Tube feeding started with Vital Hp at 20 ml per hour starting rate per md orders and renewable energy division manager recommendations
--- NOTE | 2020-02-29 18:24 | NUR ---
Patient in room CICU 2009. I have received report and had the opportunity to ask questions and assume patient care.
[2020-02-29] MEDS: insulin regular, human U-100 3ml vial - multi-dose SQ SCH (20:25)
[2020-02-29] MEDS: insulin glargine (Lantus) pen - multi-dose SQ SCH (20:29)
[2020-03-01] VITALS (24 sets, daily range): BP systolic 98–122; BP diastolic 39–66
[2020-03-01] MEDS: cyclobenzaprine 10mg tablet PO SCH ×4 (00:15→23:37)
--- NOTE | 2020-03-01 02:00 | NUR ---
attempted sedation vacation. pt continuously would cough and bite on the tube causing desaturation. sedation vacation unsuccessful sedation resumed
[2020-03-01] MEDS: methylPREDNISolone sod succ 125mg/2ml vial IV SCH ×4 (02:04→19:06)
[2020-03-01] MEDS: mineral oil/petrolatum ophthal oint EACHEYE SCH ×4 (02:07→19:10)
[2020-03-01] MEDS: insulin regular, human U-100 3ml vial - multi-dose SQ SCH ×3 (02:11→19:09)
[2020-03-01 02:24] LABS: BASOPHILS # (AUTO) 0.1 X10'3 (0-0.2); BASOPHILS % (AUTO) 0.8 % (0-1); EOSINOPHILS % (AUTO) 0 % (0-6); HEMOGLOBIN 10.2 g/dl (12.0-16.0); LYMPHOCYTES # (AUTO) 0.6 X10'3 (1.1-4.8); LYMPHOCYTES % (AUTO) 5.3 % (21-51); MEAN CORPUSCULAR HEMOGLOBIN 28.7 PG (27.0-31.0); MEAN CORPUSCULAR VOLUME 86.9 FL (78-98); MEAN PLATELET VOLUME 8.4 FL (7.4-10.4); MONOCYTES # (AUTO) 0.3 X10'3 (0-0.9); MONOCYTES % (AUTO) 3.2 % (2-12); NEUTROPHILS # (AUTO) 9.9 X10'3 (1.8-7.7); NEUTROPHILS % (AUTO) 90.7 % (42-75); PLATELET COUNT 249 X10'3 (140-440); RED BLOOD COUNT 3.56 X10'6 (4.20-5.60); RED CELL DISTRIBUTION WIDTH 14.8 % (11.5-14.5); WHITE BLOOD COUNT 10.9 X10'3 (4.5-11.0)
[2020-03-01 02:41] LABS: ALANINE AMINOTRANSFERASE 22 U/L (12-78); ALBUMIN 2.7 G/DL (3.4-5.0); ALBUMIN/GLOBULIN RATIO 0.9 (1.1-1.5); ALKALINE PHOSPHATASE 52 IU/L (46-116); ANION GAP 7 (8-16); ASPARTATE AMINO TRANSFERASE 12 U/L (10-37); BILIRUBIN,TOTAL 0.2 MG/DL (0.1-1.0); BLOOD UREA NITROGEN 38 MG/DL (7-18); BUN/CREATININE RATIO 35.5 (6.6-38.0); CALCIUM 8.4 MG/DL (8.5-10.1); CHLORIDE 106 MMOL/L (99-107); CREATININE 1.07 MG/DL (0.40-0.90); GLUCOSE 183 MG/DL (70-104); POTASSIUM 3.6 MMOL/L (3.5-5.1); PREALBUMIN 21.1 MG/DL (19-36); SODIUM 140 MMOL/L (135-145); TOTAL CARBON DIOXIDE 27.4 MMOL/L (24-32); TOTAL PROTEIN 5.6 G/DL (6.4-8.2); eGFR 52 ML/MIN
[2020-03-01] MEDS: ipratropium/albuterol 3ml nebule NEB SCH ×6 (02:50→23:01)
[2020-03-01 03:06] LABS: ABG BASE EXCESS -0.5 mmol/L (-2.0-2.0); ABG HCO3 24.4 mmol/L (22.0-26.0); ABG OXYGEN SATURATION 91.9 % (94-97); ABG PCO2 (T) 41.6 mmHg (32.0-45.0); ALLEN'S TEST POSITIVE; FCOHb 0.3 % (0.0-3.9); FMetHb 0.3 % (0.0-1.5); FO2Hb 91.3 % (94-97); PATIENT TEMPERATURE 37.3; PEEP 5 cm H2O; RESPIRATORY RATE 20 b/min; TIDAL VOLUME 400 mL; TOTAL HEMOGLOBIN 11.2 G/dl (12.0-16.0)
[2020-03-01] MEDS: FENTANYL-0.9 % NACL/PF 100 ML IV PRN (04:41)
[2020-03-01] MEDS: midazolam 100mg in NS 100ml 100 ML IV PRN (04:42)
[2020-03-01] MEDS: azithromycin/NS 500mg/250ml 250 ML IV SCH (07:36)
[2020-03-01] MEDS: CefTRIAXone/D5W-Rocephin 1gm 50 ML IV SCH (07:36)
[2020-03-01] MEDS: heparin, porcine 5000 units/ml vial SQ SCH ×2 (07:37→19:06)
[2020-03-01] MEDS: lactobacillus rhamnosus 10,000 MMU CELLS/CAPSULE PO SCH ×2 (07:38→19:07)
[2020-03-01] MEDS: PARoxetine 20mg tablet PO SCH (07:38)
[2020-03-01] MEDS: duloxetine 30mg CAPSULE.DR PO SCH (07:38)
[2020-03-01] MEDS: cloNIDine 0.1 mg tablet PO SCH ×2 (07:38→19:06)
[2020-03-01] MEDS: furosemide 40mg tablet PO SCH (07:39)
[2020-03-01] MEDS: K and/or MAG REPLACEMENT MC SCH ×2 (08:00→19:11)
[2020-03-01] MEDS ORDERED: dexmedetomidine inj. 400 MCG in dextrose 5%-water 100 ML IV SCH (10:45)
--- NOTE | 2020-03-01 12:15 | NUR ---
Reassessment: Patient continues with tube feeding advancement. Currently at 40 ml/hr, goal is 60 ml/hr. No bowel movement since 02/23; 6 days ago. No receiving bowel care, may benefit from bowel care in view of no BM for six days and receiving fentanyl, will d/w MD. A1C 8.3. Pt re-admit w/ respiratory failure after smoking once returning home yesterday upon discharge per EMR. DX COPD Exacerbation per EMR. Written DM ed w/ RD contact information placed in pt chart. Recommendations: 1) OGTF per MD using continuous Vital High Protein with goal rate of 60 mL/hr; to provide 1440ml fluid, 1210ml free water, 1440 kcals, and 126g protein. 2) additional 200 mL water flush q 4 hours 3) prealbumin q Sunday/; daily weights 4) Once extubated, diet advancement to CHO controlled as medically indicated 5) would benefit from routine bowel care for regularity Addendum: 03/01/20 at [address] Amended: Links added.
[2020-03-01] MEDS: normal saline 1000ml 1,000 ML IV SCH ×2 (12:49→23:34)
[2020-03-01] MEDS: dexmedetomidine/D5W 100mL 100 ML IV SCH (13:00)
--- NOTE | 2020-03-01 18:19 | NUR ---
Patient in room CICU 2009. I have received report and had the opportunity to ask questions and assume patient care.
[2020-03-01] MEDS: insulin glargine (Lantus) pen - multi-dose SQ SCH (20:06)
[2020-03-02] VITALS (24 sets, daily range): BP systolic 96–159; BP diastolic 50–79
[2020-03-02] MEDS: dexmedetomidine/D5W 100mL 100 ML IV SCH ×4 (02:00→21:30)
[2020-03-02] MEDS: mineral oil/petrolatum ophthal oint EACHEYE SCH ×4 (02:00→20:27)
[2020-03-02] MEDS: methylPREDNISolone sod succ 125mg/2ml vial IV SCH ×2 (02:00→07:39)
[2020-03-02] MEDS: insulin regular, human U-100 3ml vial - multi-dose SQ SCH ×4 (02:03→20:40)
[2020-03-02] MEDS: ipratropium/albuterol 3ml nebule NEB SCH ×6 (02:50→23:26)
[2020-03-02 03:02] LABS: BASOPHILS % (AUTO) 0.1 % (0-1); EOSINOPHILS % (AUTO) 0 % (0-6); HEMATOCRIT 34.9 % (35.0-45.0); HEMOGLOBIN 11.3 g/dl (12.0-16.0); LYMPHOCYTES # (AUTO) 0.5 X10'3 (1.1-4.8); LYMPHOCYTES % (AUTO) 3.2 % (21-51); MEAN CORPUSCULAR HEMOGLOBIN 28.1 PG (27.0-31.0); MEAN CORPUSCULAR HGB CONC 32.4 g/dL (33.0-36.5); MEAN CORPUSCULAR VOLUME 86.8 FL (78-98); MEAN PLATELET VOLUME 9.1 FL (7.4-10.4); MONOCYTES # (AUTO) 0.7 X10'3 (0-0.9); MONOCYTES % (AUTO) 4.2 % (2-12); NEUTROPHILS # (AUTO) 14.6 X10'3 (1.8-7.7); NEUTROPHILS % (AUTO) 92.5 % (42-75); PLATELET COUNT 265 X10'3 (140-440); RED BLOOD COUNT 4.01 X10'6 (4.20-5.60); WHITE BLOOD COUNT 15.8 X10'3 (4.5-11.0)
[2020-03-02 03:06] LABS: ABG BASE EXCESS -1.4 mmol/L (-2.0-2.0); ABG HCO3 23.6 mmol/L (22.0-26.0); ABG PCO2 (T) 41.6 mmHg (32.0-45.0); ABG PO2 (T) 69.1 mmHg (75.0-100.0); ALLEN'S TEST POSITIVE; FCOHb 0.3 % (0.0-3.9); FMetHb 0.3 % (0.0-1.5); FO2Hb 91.4 % (94-97); PATIENT TEMPERATURE 37.5; PEEP 5 cm H2O; RESPIRATORY RATE 20 b/min; TIDAL VOLUME 400 mL; TOTAL HEMOGLOBIN 11.8 G/dl (12.0-16.0)
[2020-03-02 03:27] LABS: ALANINE AMINOTRANSFERASE 25 U/L (12-78); ALBUMIN 2.8 G/DL (3.4-5.0); ALBUMIN/GLOBULIN RATIO 0.8 (1.1-1.5); ALKALINE PHOSPHATASE 56 IU/L (46-116); ANION GAP 9 (8-16); ASPARTATE AMINO TRANSFERASE 15 U/L (10-37); BILIRUBIN,TOTAL 0.2 MG/DL (0.1-1.0); BLOOD UREA NITROGEN 40 MG/DL (7-18); BUN/CREATININE RATIO 41.7 (6.6-38.0); CALCIUM 8.7 MG/DL (8.5-10.1); CHLORIDE 106 MMOL/L (99-107); CREATININE 0.96 MG/DL (0.40-0.90); GLUCOSE 177 MG/DL (70-104); POTASSIUM 3.8 MMOL/L (3.5-5.1); SODIUM 143 MMOL/L (135-145); TOTAL CARBON DIOXIDE 28.2 MMOL/L (24-32); TOTAL PROTEIN 6.1 G/DL (6.4-8.2); eGFR 59 ML/MIN
--- NOTE | 2020-03-02 06:14 | NUR ---
Problems reprioritized. Patient report given, questions answered & plan of care reviewed
--- NOTE | 2020-03-02 06:30 | NUR ---
Patient in room CICU 2009. I have received report from JOANN Dos Santos and had the opportunity to ask questions and assume patient care.
[2020-03-02] MEDS: azithromycin/NS 500mg/250ml 250 ML IV SCH (07:35)
[2020-03-02] MEDS: CefTRIAXone/D5W-Rocephin 1gm 50 ML IV SCH (07:37)
[2020-03-02] MEDS: cyclobenzaprine 10mg tablet PO SCH ×2 (07:39→15:45)
[2020-03-02] MEDS: furosemide 40mg tablet PO SCH (07:39)
[2020-03-02] MEDS: duloxetine 30mg CAPSULE.DR PO SCH (07:39)
[2020-03-02] MEDS: cloNIDine 0.1 mg tablet PO SCH ×2 (07:39→20:27)
[2020-03-02] MEDS: lactobacillus rhamnosus 10,000 MMU CELLS/CAPSULE PO SCH ×2 (07:39→20:28)
[2020-03-02] MEDS: PARoxetine 20mg tablet PO SCH (07:39)
[2020-03-02] MEDS: heparin, porcine 5000 units/ml vial SQ SCH ×2 (07:40→20:28)
[2020-03-02] MEDS: K and/or MAG REPLACEMENT MC SCH ×2 (08:00→20:00)
[2020-03-02] MEDS ORDERED: vancomycin/NS 1 GM ADD-VANTAGE 250 ML IV ONE (09:10)
[2020-03-02] MEDS: vancomycin/NS 1 GM ADD-VANTAGE 250 ML IV SCH ×2 (11:28→22:50)
--- NOTE | 2020-03-02 12:44 | NUR ---
F/u: Patient's TF is at goal rate and pt tolerating with GRV WNL. Still no BM or bowel care. F/u with RN recommendation for routine prokinetic agent, opioid antagonist, and/or bowel care with MD approval. Will continue to follow closely. Addendum: 03/02/20 at [address] Amended: Links added.
[2020-03-02] MEDS: methylPREDNISolone sod succ/PF 40mg inj. IV SCH ×2 (14:08→20:27)
[2020-03-02] MEDS: fentaNYL/PF 50MCG/1 ML 2ML syringe IV PRN ×2 (20:28→22:19)
[2020-03-02] MEDS: insulin glargine (Lantus) pen - multi-dose SQ SCH (20:41)
[2020-03-02] MEDS: FENTANYL-0.9 % NACL/PF 100 ML IV PRN (22:45)
[2020-03-03] VITALS (24 sets, daily range): BP systolic 85–120; BP diastolic 42–78
[2020-03-03] MEDS: dexmedetomidine/D5W 100mL 100 ML IV SCH ×4 (01:19→20:04)
[2020-03-03] MEDS: cyclobenzaprine 10mg tablet PO SCH ×3 (01:22→16:21)
[2020-03-03] MEDS: mineral oil/petrolatum ophthal oint EACHEYE SCH ×4 (01:22→20:03)
--- NOTE | 2020-03-03 01:30 | NUR ---
RN Note -Called Ifeanyi Baxter due to pt is increasing agitation and combativeness. Sitting up in bed, trying to pull at ET tube. OK to restart versed at lowest possible dose to keep pt calm until morning.
[2020-03-03] MEDS: midazolam 100mg in NS 100ml 100 ML IV PRN (01:36)
[2020-03-03] MEDS: methylPREDNISolone sod succ/PF 40mg inj. IV SCH ×4 (02:48→20:07)
[2020-03-03] MEDS: insulin regular, human U-100 3ml vial - multi-dose SQ SCH ×4 (02:50→20:28)
[2020-03-03 03:18] LABS: BASOPHILS % (AUTO) 0.1 % (0-1); EOSINOPHILS % (AUTO) 0 % (0-6); HEMATOCRIT 35.3 % (35.0-45.0); HEMOGLOBIN 11.7 g/dl (12.0-16.0); LYMPHOCYTES # (AUTO) 0.6 X10'3 (1.1-4.8); LYMPHOCYTES % (AUTO) 4.9 % (21-51); MEAN CORPUSCULAR HEMOGLOBIN 28.5 PG (27.0-31.0); MEAN CORPUSCULAR VOLUME 86.3 FL (78-98); MONOCYTES # (AUTO) 0.6 X10'3 (0-0.9); MONOCYTES % (AUTO) 4.8 % (2-12); NEUTROPHILS # (AUTO) 11.7 X10'3 (1.8-7.7); NEUTROPHILS % (AUTO) 90.2 % (42-75); PLATELET COUNT 236 X10'3 (140-440); RED CELL DISTRIBUTION WIDTH 14.7 % (11.5-14.5)
[2020-03-03] MEDS: ipratropium/albuterol 3ml nebule NEB SCH ×6 (03:18→23:08)
[2020-03-03 03:36] LABS: ALANINE AMINOTRANSFERASE 34 U/L (12-78); ALBUMIN 2.7 G/DL (3.4-5.0); ALBUMIN/GLOBULIN RATIO 0.8 (1.1-1.5); ALKALINE PHOSPHATASE 57 IU/L (46-116); ANION GAP 4 (8-16); ASPARTATE AMINO TRANSFERASE 24 U/L (10-37); BILIRUBIN,TOTAL 0.3 MG/DL (0.1-1.0); BLOOD UREA NITROGEN 40 MG/DL (7-18); CALCIUM 8.7 MG/DL (8.5-10.1); CHLORIDE 104 MMOL/L (99-107); CREATININE 0.87 MG/DL (0.40-0.90); GLUCOSE 88 MG/DL (70-104); POTASSIUM 3.3 MMOL/L (3.5-5.1); SODIUM 140 MMOL/L (135-145); TOTAL CARBON DIOXIDE 32.4 MMOL/L (24-32); TOTAL PROTEIN 5.9 G/DL (6.4-8.2); eGFR 67 ML/MIN
[2020-03-03] MEDS: cloNIDine 0.1 mg tablet PO SCH (07:46)
[2020-03-03] MEDS: azithromycin/NS 500mg/250ml 250 ML IV SCH (07:46)
[2020-03-03] MEDS: duloxetine 30mg CAPSULE.DR PO SCH (07:46)
[2020-03-03] MEDS: heparin, porcine 5000 units/ml vial SQ SCH ×2 (07:46→20:06)
[2020-03-03] MEDS: furosemide 40mg tablet PO SCH (07:46)
[2020-03-03] MEDS: lactobacillus rhamnosus 10,000 MMU CELLS/CAPSULE PO SCH ×2 (07:46→20:04)
[2020-03-03] MEDS: PARoxetine 20mg tablet PO SCH (07:46)
[2020-03-03] MEDS: K and/or MAG REPLACEMENT MC SCH ×2 (08:00→20:00)
[2020-03-03] MEDS: vancomycin/NS 1 GM ADD-VANTAGE 250 ML IV SCH ×2 (09:20→22:02)
[2020-03-03] MEDS ORDERED: magnesium 2GM in 50ml NS 50 ML IV PRN (09:25)
[2020-03-03] MEDS ORDERED: magnesium 4gm in 100ml NS 100 ML IV PRN (09:25)
[2020-03-03] MEDS: potassium Cl 20mEq/100mL bag 100 ML IV PRN ×2 (11:30→12:45)
[2020-03-03] MEDS: metoclopramide 5 mg/ml inj IV SCH ×2 (13:33→20:06)
[2020-03-03] MEDS ORDERED: acetaminophen 325mg/10.15ml oral unit dose solution OGT PRN (17:13)
[2020-03-03] MEDS ORDERED: dextrose ORAL solution 15 GM/59 ML bottle OGT PRN ×2 (17:14)
[2020-03-03] MEDS ORDERED: mag hydrox/Alum hydrox/simeth 30ml oral suspension OGT PRN (17:19)
[2020-03-03] MEDS ORDERED: magnesium hydroxide 30ml (MOM) UD suspension OGT PRN (17:19)
[2020-03-03] MEDS: cloNIDine 0.1 mg tablet OGT SCH (20:00)
[2020-03-03] MEDS: insulin glargine (Lantus) pen - multi-dose SQ SCH (20:33)
[2020-03-03] MEDS ORDERED: VANCOMYCIN LEVEL IV ONE (21:30)
[2020-03-04] VITALS (24 sets, daily range): BP systolic 91–127; BP diastolic 42–70
[2020-03-04] MEDS: dexmedetomidine/D5W 100mL 100 ML IV SCH ×4 (01:49→20:08)
[2020-03-04] MEDS: midazolam 100mg in NS 100ml 100 ML IV PRN (01:50)
[2020-03-04] MEDS: metoclopramide 5 mg/ml inj IV SCH ×4 (02:02→20:46)
[2020-03-04] MEDS: methylPREDNISolone sod succ/PF 40mg inj. IV SCH ×3 (02:02→20:47)
[2020-03-04] MEDS: mineral oil/petrolatum ophthal oint EACHEYE SCH ×4 (02:03→19:46)
[2020-03-04] MEDS: insulin regular, human U-100 3ml vial - multi-dose SQ SCH ×2 (02:07→08:17)
[2020-03-04 02:48] LABS: BASOPHILS % (AUTO) 0 % (0-1); EOSINOPHILS % (AUTO) 0 % (0-6); HEMATOCRIT 33.8 % (35.0-45.0); HEMOGLOBIN 11.2 g/dl (12.0-16.0); LYMPHOCYTES # (AUTO) 0.6 X10'3 (1.1-4.8); LYMPHOCYTES % (AUTO) 5.1 % (21-51); MEAN CORPUSCULAR HEMOGLOBIN 28.4 PG (27.0-31.0); MEAN PLATELET VOLUME 8.8 FL (7.4-10.4); MONOCYTES # (AUTO) 0.6 X10'3 (0-0.9); MONOCYTES % (AUTO) 5.3 % (2-12); NEUTROPHILS % (AUTO) 89.6 % (42-75); PLATELET COUNT 223 X10'3 (140-440); RED BLOOD COUNT 3.94 X10'6 (4.20-5.60); RED CELL DISTRIBUTION WIDTH 14.8 % (11.5-14.5); WHITE BLOOD COUNT 11.1 X10'3 (4.5-11.0)
[2020-03-04 03:13] LABS: ALANINE AMINOTRANSFERASE 39 U/L (12-78); ALBUMIN 2.5 G/DL (3.4-5.0); ALBUMIN/GLOBULIN RATIO 0.8 (1.1-1.5); ALKALINE PHOSPHATASE 57 IU/L (46-116); ANION GAP 5 (8-16); ASPARTATE AMINO TRANSFERASE 19 U/L (10-37); BILIRUBIN,TOTAL 0.3 MG/DL (0.1-1.0); BLOOD UREA NITROGEN 39 MG/DL (7-18); BUN/CREATININE RATIO 45.3 (6.6-38.0); CALCIUM 8.6 MG/DL (8.5-10.1); CHLORIDE 102 MMOL/L (99-107); CREATININE 0.86 MG/DL (0.40-0.90); GLUCOSE 218 MG/DL (70-104); POTASSIUM 3.9 MMOL/L (3.5-5.1); PREALBUMIN 29.3 MG/DL (19-36); SODIUM 137 MMOL/L (135-145); TOTAL CARBON DIOXIDE 30.2 MMOL/L (24-32); TOTAL PROTEIN 5.6 G/DL (6.4-8.2); eGFR 68 ML/MIN
[2020-03-04] MEDS: ipratropium/albuterol 3ml nebule NEB SCH ×6 (03:14→23:03)
[2020-03-04 03:30] LABS: ABG BASE EXCESS 1.1 mmol/L (-2.0-2.0); ABG HCO3 24.7 mmol/L (22.0-26.0); ABG OXYGEN SATURATION 91.2 % (94-97); ABG PO2 (T) 62.3 mmHg (75.0-100.0); ALLEN'S TEST POSITIVE; FCOHb 0.3 % (0.0-3.9); FMetHb 0.3 % (0.0-1.5); FO2Hb 90.7 % (94-97); PATIENT TEMPERATURE 37.4; PEEP 5 cm H2O; RESPIRATORY RATE 20 b/min; TIDAL VOLUME 400 mL; TOTAL HEMOGLOBIN 11.9 G/dl (12.0-16.0)
[2020-03-04] MEDS: cloNIDine 0.1 mg tablet OGT SCH ×2 (07:26→20:00)
[2020-03-04] MEDS: duloxetine 30mg CAPSULE.DR PO SCH (07:27)
[2020-03-04] MEDS: cyclobenzaprine 10mg tablet OGT SCH ×3 (07:36→15:40)
[2020-03-04] MEDS: PARoxetine 20mg tablet OGT SCH (07:36)
[2020-03-04] MEDS: furosemide 40mg tablet OGT SCH (07:36)
[2020-03-04] MEDS: lactobacillus rhamnosus 10,000 MMU CELLS/CAPSULE OGT SCH ×2 (07:37→20:47)
[2020-03-04] MEDS: heparin, porcine 5000 units/ml vial SQ SCH ×2 (07:38→20:46)
[2020-03-04] MEDS: K and/or MAG REPLACEMENT MC SCH ×2 (08:00→19:46)
--- NOTE | 2020-03-04 11:30 | NUR ---
Extubated per MD orders. Patient tolerating well on 4L NC
[2020-03-04] MEDS: VANCOmycin 1250MG/NS 250ml Bag 250 ML IV SCH ×2 (12:20→22:19)
--- NOTE | 2020-03-04 14:00 | NUR ---
BG 24. Dextrose given per protocol. BG 151 on recheck
[2020-03-04] MEDS: dextrose 50%-water 50ml dispensing syringe IV PRN (14:01)
--- NOTE | 2020-03-04 14:46 | NUR ---
Reassessment: Pt previously tolerating TF at goal. Pt now extubated. Recommend BSS with ST, consult in place. Pt still with no BM since 02/23, started on routine Reglan 03/03. Will follow closely and monitor need for nutrition intervention pending trends in PO intake following BSS. Recommendations: 1) Diet advancement to CHO controlled as medically indicated, pending BSS with ST 2) Monitor need for ONS 3) would benefit from routine bowel care for regularity 4) Scaled weights per rx Addendum: 03/04/20 at [address] Amended: Links added.
[2020-03-04] MEDS ORDERED: ALPRAZolam 0.25mg tablet PO PRN (17:00)
[2020-03-04] MEDS: HYDROcodone/acetaminophen 10/325mg tab PO PRN ×2 (17:12→22:20)
[2020-03-04] MEDS: insulin glargine (Lantus) pen - multi-dose SQ SCH (20:49)
[2020-03-04] MEDS: ALPRAZolam 0.5mg tablet PO PRN (21:21)
[2020-03-05] VITALS (23 sets, daily range): BP systolic 90–133; BP diastolic 43–71
[2020-03-05] MEDS: mineral oil/petrolatum ophthal oint EACHEYE SCH ×4 (01:49→20:00)
[2020-03-05] MEDS: dexmedetomidine/D5W 100mL 100 ML IV SCH ×2 (01:49→16:11)
[2020-03-05] MEDS: metoclopramide 5 mg/ml inj IV SCH ×4 (02:31→20:32)
[2020-03-05] MEDS: ipratropium/albuterol 3ml nebule NEB SCH ×6 (03:26→23:22)
[2020-03-05 03:43] LABS: BASOPHILS % (AUTO) 0.2 % (0-1); EOSINOPHILS % (AUTO) 0 % (0-6); HEMATOCRIT 30.4 % (35.0-45.0); HEMOGLOBIN 9.9 g/dl (12.0-16.0); LYMPHOCYTES # (AUTO) 0.8 X10'3 (1.1-4.8); LYMPHOCYTES % (AUTO) 5.7 % (21-51); MEAN CORPUSCULAR HEMOGLOBIN 28.3 PG (27.0-31.0); MEAN CORPUSCULAR HGB CONC 32.6 g/dL (33.0-36.5); MEAN CORPUSCULAR VOLUME 86.6 FL (78-98); MEAN PLATELET VOLUME 9.5 FL (7.4-10.4); MONOCYTES # (AUTO) 0.7 X10'3 (0-0.9); NEUTROPHILS # (AUTO) 11.7 X10'3 (1.8-7.7); NEUTROPHILS % (AUTO) 89.1 % (42-75); PLATELET COUNT 194 X10'3 (140-440); RED BLOOD COUNT 3.51 X10'6 (4.20-5.60); RED CELL DISTRIBUTION WIDTH 14.9 % (11.5-14.5); WHITE BLOOD COUNT 13.1 X10'3 (4.5-11.0)
[2020-03-05 03:46] LABS: ALANINE AMINOTRANSFERASE 39 U/L (12-78); ALBUMIN/GLOBULIN RATIO 0.8 (1.1-1.5); ALKALINE PHOSPHATASE 46 IU/L (46-116); ANION GAP 7 (8-16); ASPARTATE AMINO TRANSFERASE 18 U/L (10-37); BILIRUBIN,TOTAL 0.3 MG/DL (0.1-1.0); BLOOD UREA NITROGEN 28 MG/DL (7-18); BUN/CREATININE RATIO 35.9 (6.6-38.0); CHLORIDE 107 MMOL/L (99-107); CREATININE 0.78 MG/DL (0.40-0.90); GLUCOSE 189 MG/DL (70-104); MAGNESIUM 1.2 MG/DL (1.5-2.4); POTASSIUM 3.3 MMOL/L (3.5-5.1); SODIUM 140 MMOL/L (135-145); TOTAL CARBON DIOXIDE 25.7 MMOL/L (24-32); TOTAL PROTEIN 4.5 G/DL (6.4-8.2); eGFR 76 ML/MIN
[2020-03-05] MEDS: potassium Cl 20mEq/100mL bag 100 ML IV PRN ×2 (04:09→05:25)
[2020-03-05] MEDS: HYDROcodone/acetaminophen 10/325mg tab PO PRN ×4 (04:21→20:34)
--- NOTE | 2020-03-05 06:20 | NUR ---
Patient in room CICU 2009. I have received report from JOANN Multani and had the opportunity to ask questions and assume patient care.
[2020-03-05] MEDS: K and/or MAG REPLACEMENT MC SCH ×2 (08:00→20:00)
[2020-03-05] MEDS: nicotine 21mg patch - 24 hr TD SCH (08:00)
[2020-03-05] MEDS: PARoxetine 20mg tablet OGT SCH (08:23)
[2020-03-05] MEDS: cyclobenzaprine 10mg tablet OGT SCH ×3 (08:23→15:32)
[2020-03-05] MEDS: furosemide 40mg tablet OGT SCH (08:23)
[2020-03-05] MEDS: lactobacillus rhamnosus 10,000 MMU CELLS/CAPSULE OGT SCH ×2 (08:23→20:32)
[2020-03-05] MEDS: methylPREDNISolone sod succ/PF 40mg inj. IV SCH ×2 (08:24→20:33)
[2020-03-05] MEDS: duloxetine 30mg CAPSULE.DR PO SCH (08:24)
[2020-03-05] MEDS: heparin, porcine 5000 units/ml vial SQ SCH ×2 (08:25→20:33)
[2020-03-05] MEDS: cloNIDine 0.1 mg tablet OGT SCH ×2 (08:53→20:00)
[2020-03-05] MEDS: ALPRAZolam 0.5mg tablet PO PRN ×2 (08:53→16:37)
[2020-03-05] MEDS: insulin Lispro (HumaLOG) vial - multi-dose SQ SCH ×3 (09:43→20:39)
--- NOTE | 2020-03-05 10:30 | NUR ---
Patient exhibiting increased work of breathing with respirations at 41. Patient on 4L NC placed onto BIPAP. Resumed precedex at 4 mcg/kg/hr after drip was held at 0500. Patient exhibiting anxiety after PRN xanax. Charge nurse notified. Charge nurse at bedside. Will continue to monitor.
[2020-03-05] MEDS: VANCOmycin 1250MG/NS 250ml Bag 250 ML IV SCH ×2 (10:39→22:31)
--- NOTE | 2020-03-05 12:00 | NUR ---
Patient taken off BIPAP, after respirations decreased to 20. Patient asking for lunch and would like food, no longer anxious. Patient tolerating, with 94% at 4LNC
[2020-03-05 15:48] LABS: MAGNESIUM 2.7 MG/DL (1.5-2.4); POTASSIUM 4.2 MMOL/L (3.5-5.1)
[2020-03-05] MEDS: guaiFENesin 200 MG/10 ML oral syrup UD cup OGT PRN ×2 (16:59→22:30)
--- NOTE | 2020-03-05 18:19 | NUR ---
Problems reprioritized. Patient report given, questions answered & plan of care reviewed with JOANN Brown.
--- NOTE | 2020-03-05 18:30 | NUR ---
Patient in room CICU 2009. I have received report from Doreen DAVID and had the opportunity to ask questions and assume patient care.
[2020-03-05] MEDS: insulin glargine (Lantus) pen - multi-dose SQ SCH (20:40)
[2020-03-05] MEDS ORDERED: VANCOMYCIN LEVEL IV ONE (21:30)
[2020-03-06] VITALS (17 sets, daily range): BP systolic 83–121; BP diastolic 33–63
[2020-03-06] MEDS: metoclopramide 5 mg/ml inj IV SCH ×4 (01:44→20:13)
[2020-03-06] MEDS: cyclobenzaprine 10mg tablet OGT SCH ×3 (01:44→16:30)
[2020-03-06] MEDS: mineral oil/petrolatum ophthal oint EACHEYE SCH ×4 (02:00→19:02)
[2020-03-06] MEDS: dexmedetomidine/D5W 100mL 100 ML IV SCH (02:30)
[2020-03-06] MEDS: ipratropium/albuterol 3ml nebule NEB SCH ×6 (03:26→23:17)
[2020-03-06 03:29] LABS: BASOPHILS % (AUTO) 0.2 % (0-1); EOSINOPHILS % (AUTO) 0.1 % (0-6); HEMATOCRIT 35.9 % (35.0-45.0); HEMOGLOBIN 11.6 g/dl (12.0-16.0); LYMPHOCYTES # (AUTO) 0.5 X10'3 (1.1-4.8); LYMPHOCYTES % (AUTO) 3.7 % (21-51); MEAN CORPUSCULAR HEMOGLOBIN 27.8 PG (27.0-31.0); MEAN CORPUSCULAR HGB CONC 32.3 g/dL (33.0-36.5); MEAN CORPUSCULAR VOLUME 85.9 FL (78-98); MEAN PLATELET VOLUME 9.6 FL (7.4-10.4); MONOCYTES # (AUTO) 0.5 X10'3 (0-0.9); MONOCYTES % (AUTO) 3.5 % (2-12); NEUTROPHILS # (AUTO) 12.6 X10'3 (1.8-7.7); NEUTROPHILS % (AUTO) 92.5 % (42-75); PLATELET COUNT 221 X10'3 (140-440); RED BLOOD COUNT 4.18 X10'6 (4.20-5.60); RED CELL DISTRIBUTION WIDTH 15.2 % (11.5-14.5); WHITE BLOOD COUNT 13.6 X10'3 (4.5-11.0)
[2020-03-06 03:43] LABS: ALANINE AMINOTRANSFERASE 59 U/L (12-78); ALBUMIN 2.9 G/DL (3.4-5.0); ALBUMIN/GLOBULIN RATIO 0.9 (1.1-1.5); ALKALINE PHOSPHATASE 70 IU/L (46-116); ANION GAP 4 (8-16); ASPARTATE AMINO TRANSFERASE 26 U/L (10-37); BILIRUBIN,TOTAL 0.5 MG/DL (0.1-1.0); BLOOD UREA NITROGEN 28 MG/DL (7-18); BUN/CREATININE RATIO 30.4 (6.6-38.0); CHLORIDE 101 MMOL/L (99-107); CREATININE 0.92 MG/DL (0.40-0.90); GLUCOSE 68 MG/DL (70-104); MAGNESIUM 2.3 MG/DL (1.5-2.4); PHOSPHORUS 4.8 MG/DL (2.3-4.5); POTASSIUM 4.3 MMOL/L (3.5-5.1); SODIUM 138 MMOL/L (135-145); TOTAL CARBON DIOXIDE 33.2 MMOL/L (24-32); TOTAL PROTEIN 6.2 G/DL (6.4-8.2); eGFR 62 ML/MIN
[2020-03-06 04:11] LABS: CALCIUM 8.7 MG/DL (8.5-10.1)
[2020-03-06] MEDS: guaiFENesin 200 MG/10 ML oral syrup UD cup OGT PRN ×3 (05:54→20:13)
--- NOTE | 2020-03-06 06:38 | NUR ---
Problems reprioritized. Patient report given, questions answered & plan of care reviewed with Marilyn DAVID.
[2020-03-06] MEDS: dextrose 50%-water 50ml dispensing syringe IV PRN (07:17)
[2020-03-06] MEDS: ALPRAZolam 0.5mg tablet PO PRN ×2 (07:41→16:47)
[2020-03-06] MEDS: K and/or MAG REPLACEMENT MC SCH ×2 (08:00→19:50)
[2020-03-06] MEDS: HYDROcodone/acetaminophen 10/325mg tab PO PRN ×3 (08:37→19:06)
[2020-03-06] MEDS: lactobacillus rhamnosus 10,000 MMU CELLS/CAPSULE OGT SCH ×2 (08:39→20:13)
[2020-03-06] MEDS: furosemide 40mg tablet OGT SCH (08:39)
[2020-03-06] MEDS: PARoxetine 20mg tablet OGT SCH (08:39)
[2020-03-06] MEDS: duloxetine 30mg CAPSULE.DR PO SCH (08:39)
[2020-03-06] MEDS: methylPREDNISolone sod succ/PF 40mg inj. IV SCH (08:40)
[2020-03-06] MEDS: heparin, porcine 5000 units/ml vial SQ SCH ×2 (08:47→20:13)
[2020-03-06] MEDS: nicotine 21mg patch - 24 hr TD SCH (09:04)
[2020-03-06] MEDS: VANCOmycin 1250MG/NS 250ml Bag 250 ML IV SCH (10:42)
[2020-03-06] MEDS: cloNIDine 0.1 mg tablet OGT SCH ×2 (10:43→19:50)
[2020-03-06] MEDS: predniSONE 20 mg tablet PO SCH (13:06)
[2020-03-06] MEDS: insulin Lispro (HumaLOG) vial - multi-dose SQ SCH (13:50)
--- NOTE | 2020-03-06 15:20 | NUR ---
Pt. States that She was seen at [facility] about three months ago. She says that she does suffer from depression. She had a short episode of fearlessness today, that has now resolved.
--- NOTE | 2020-03-06 16:00 | NUR ---
Kern catheter removed this morning, and now voiding normally.
--- NOTE | 2020-03-06 17:00 | NUR ---
Pt. is wanting to go home She did call her sister to pick her up, and melangeur operator to report that we were not allowing her to leave. is aware of Pt. behaviors, and that she could not be redirected easily. Pt. has agreed to stay in the hospital and has stopped pulling lines.
[2020-03-06] MEDS: insulin glargine (Lantus) pen - multi-dose SQ SCH (20:17)
--- NOTE | 2020-03-06 21:10 | NUR ---
Problems reprioritized. Patient report given, questions answered & plan of care reviewed with Shari DAVID. Patient to be transferred to PCU room 3024A. Pt placed on tele monitor for transport. Central line d/c'd and PIV placed. Pt is alert and oriented and aware of transfer. All belongings packed up and will be sent with patient. Awaiting staff to be able to assist with transfer
[2020-03-07] MEDS: cyclobenzaprine 10mg tablet OGT SCH ×2 (00:11→08:51)
[2020-03-07] MEDS: HYDROcodone/acetaminophen 10/325mg tab PO PRN ×4 (00:12→21:02)
--- NOTE | 2020-03-07 01:21 | NUR ---
I concur with patient assessment ; labs reviewed and care plan updated
[2020-03-07] MEDS: mineral oil/petrolatum ophthal oint EACHEYE SCH ×2 (02:00→08:00)
[2020-03-07] MEDS: metoclopramide 5 mg/ml inj IV SCH ×2 (02:51→08:00)
[2020-03-07 03:00] VITALS: BP 103/61
[2020-03-07] MEDS: guaiFENesin 200 MG/10 ML oral syrup UD cup OGT PRN (03:03)
[2020-03-07] MEDS: ALPRAZolam 0.5mg tablet PO PRN ×3 (03:03→22:46)
[2020-03-07] MEDS: ipratropium/albuterol 3ml nebule NEB SCH ×6 (03:15→23:41)
[2020-03-07 05:54] LABS: BASOPHILS % (AUTO) 0.4 % (0-1); EOSINOPHILS # (AUTO) 0.1 X10'3 (0-0.9); EOSINOPHILS % (AUTO) 0.4 % (0-6); HEMATOCRIT 35.4 % (35.0-45.0); HEMOGLOBIN 11.5 g/dl (12.0-16.0); LYMPHOCYTES # (AUTO) 1.5 X10'3 (1.1-4.8); LYMPHOCYTES % (AUTO) 13.1 % (21-51); MEAN CORPUSCULAR HEMOGLOBIN 28.1 PG (27.0-31.0); MEAN CORPUSCULAR HGB CONC 32.6 g/dL (33.0-36.5); MEAN CORPUSCULAR VOLUME 86.3 FL (78-98); MEAN PLATELET VOLUME 9.4 FL (7.4-10.4); MONOCYTES # (AUTO) 0.8 X10'3 (0-0.9); MONOCYTES % (AUTO) 6.8 % (2-12); NEUTROPHILS # (AUTO) 9.3 X10'3 (1.8-7.7); NEUTROPHILS % (AUTO) 79.3 % (42-75); PLATELET COUNT 235 X10'3 (140-440); RED CELL DISTRIBUTION WIDTH 15.2 % (11.5-14.5); WHITE BLOOD COUNT 11.7 X10'3 (4.5-11.0)
[2020-03-07 06:00] VITALS: BP 113/58
[2020-03-07 06:16] LABS: ALANINE AMINOTRANSFERASE 64 U/L (12-78); ALBUMIN/GLOBULIN RATIO 0.9 (1.1-1.5); ALKALINE PHOSPHATASE 64 IU/L (46-116); ANION GAP 4 (8-16); ASPARTATE AMINO TRANSFERASE 34 U/L (10-37); BILIRUBIN,TOTAL 0.6 MG/DL (0.1-1.0); BLOOD UREA NITROGEN 20 MG/DL (7-18); BUN/CREATININE RATIO 22.7 (6.6-38.0); CHLORIDE 101 MMOL/L (99-107); CREATININE 0.88 MG/DL (0.40-0.90); MAGNESIUM 1.9 MG/DL (1.5-2.4); PHOSPHORUS 3.8 MG/DL (2.3-4.5); POTASSIUM 3.4 MMOL/L (3.5-5.1); SODIUM 139 MMOL/L (135-145); TOTAL CARBON DIOXIDE 33.8 MMOL/L (24-32); TOTAL PROTEIN 6.3 G/DL (6.4-8.2); eGFR 66 ML/MIN
[2020-03-07 06:34] LABS: GLUCOSE 34 MG/DL (70-104)
[2020-03-07] MEDS: dextrose 50%-water 50ml dispensing syringe IV PRN (06:42)
--- NOTE | 2020-03-07 06:45 | NUR ---
Patient in room PCU 3024. I have received report from JOANN Mccarthy and had the opportunity to ask questions and assume patient care.
[2020-03-07] MEDS: K and/or MAG REPLACEMENT MC SCH ×2 (08:00→20:00)
[2020-03-07] MEDS: duloxetine 30mg CAPSULE.DR PO SCH (08:51)
[2020-03-07] MEDS: PARoxetine 20mg tablet OGT SCH (08:51)
[2020-03-07] MEDS: furosemide 40mg tablet OGT SCH (08:51)
[2020-03-07] MEDS: cloNIDine 0.1 mg tablet OGT SCH (08:51)
[2020-03-07] MEDS: lactobacillus rhamnosus 10,000 MMU CELLS/CAPSULE OGT SCH (08:51)
[2020-03-07] MEDS: heparin, porcine 5000 units/ml vial SQ SCH ×2 (08:52→19:51)
[2020-03-07] MEDS: nicotine 21mg patch - 24 hr TD SCH (08:52)
[2020-03-07] MEDS: predniSONE 20 mg tablet PO SCH (08:52)
[2020-03-07] MEDS ORDERED: dextrose ORAL solution 15 GM/59 ML bottle PO PRN ×2 (09:25→09:26)
[2020-03-07] MEDS ORDERED: acetaminophen 325mg/10.15ml oral unit dose solution PO PRN (09:25)
[2020-03-07] MEDS ORDERED: mag hydrox/Alum hydrox/simeth 30ml oral suspension PO PRN (09:28)
[2020-03-07] MEDS ORDERED: magnesium hydroxide 30ml (MOM) UD suspension PO PRN (09:29)
[2020-03-07] MEDS ORDERED: VANCOMYCIN LEVEL IV ONE (09:30)
[2020-03-07] MEDS ORDERED: potassium Cl 20 mEq SR tablet PO STA (09:57)
[2020-03-07] MEDS ORDERED: vancomycin/NS 1 GM ADD-VANTAGE 250 ML IV SCH (10:00)
[2020-03-07] MEDS: guaiFENesin 200 MG/10 ML oral syrup UD cup PO PRN ×2 (10:00→16:51)
--- NOTE | 2020-03-07 10:53 | NUR ---
Notified Pooja Mcqueen of pt's critical vanco trough of 22.0. pharmacy to dose.
[2020-03-07 11:00] VITALS: BP 126/59
[2020-03-07] MEDS: insulin Lispro (HumaLOG) vial - multi-dose SQ SCH (13:44)
[2020-03-07 15:00] VITALS: BP 104/57
[2020-03-07] MEDS: cyclobenzaprine 10mg tablet PO SCH (16:51)
--- NOTE | 2020-03-07 16:58 | NUR ---
F/u (03/07): Pt advanced to carb controlled diet PO improving today ~75% avg meals up from 0-25% first 2 days s/p extubation. LBM 03/06. Respiratory failure improving per MD note. Receiving electrolyte replacements per protocol. +4.6kg wt gain likely error given negative fluid balance; 69.8kg prior wt likely most accurate making BMI 29. Lantus stopped for low Glu in AM per EMR; was administered when prior AM Glu was 50 which likely impacted Glu. Will continue to monitor for additional protein needs. Recommendations: 1) continue CHO controlled diet 2) Monitor need for ONS 3) routine bowel care 4) weekly wts Addendum: 03/07/20 at [address] Amended: Links added.
[2020-03-07 18:00] VITALS: BP 94/62
--- NOTE | 2020-03-07 18:18 | NUR ---
Patient in room PCU 3024. I have received report from Kwame DAVID and had the opportunity to ask questions and assume patient care.
--- NOTE | 2020-03-07 18:24 | NUR ---
Problems reprioritized. Patient report given, questions answered & plan of care reviewed with JOANN Gonzalez.
[2020-03-07] MEDS: lactobacillus rhamnosus 10,000 MMU CELLS/CAPSULE PO SCH (19:50)
[2020-03-07] MEDS: cloNIDine 0.1 mg tablet PO SCH (19:53)
[2020-03-07 22:00] VITALS: BP 95/68
[2020-03-07] MEDS: benzocaine/menthol oral lozeng 1 EACH BOX MM PRN (22:46)
[2020-03-07] MEDS: vancomycin/NS 1 GM ADD-VANTAGE 250 ML IV SCH (22:58)
[2020-03-08] MEDS: cyclobenzaprine 10mg tablet PO SCH ×3 (00:47→16:00)
[2020-03-08] MEDS: guaiFENesin 200 MG/10 ML oral syrup UD cup PO PRN (00:47)
[2020-03-08] MEDS: HYDROcodone/acetaminophen 10/325mg tab PO PRN ×4 (01:33→15:41)
[2020-03-08] MEDS: benzocaine/menthol oral lozeng 1 EACH BOX MM PRN ×2 (01:33→05:56)
[2020-03-08 02:00] VITALS: BP 106/52
[2020-03-08] MEDS: ipratropium/albuterol 3ml nebule NEB SCH ×6 (03:22→23:17)
[2020-03-08 05:31] LABS: ALANINE AMINOTRANSFERASE 64 U/L (12-78); ALBUMIN 3.2 G/DL (3.4-5.0); ALBUMIN/GLOBULIN RATIO 0.9 (1.1-1.5); ALKALINE PHOSPHATASE 77 IU/L (46-116); ANION GAP 5 (8-16); ASPARTATE AMINO TRANSFERASE 26 U/L (10-37); BILIRUBIN,TOTAL 0.5 MG/DL (0.1-1.0); BLOOD UREA NITROGEN 19 MG/DL (7-18); CALCIUM 9.3 MG/DL (8.5-10.1); CHLORIDE 100 MMOL/L (99-107); CREATININE 0.95 MG/DL (0.40-0.90); GLUCOSE 94 MG/DL (70-104); MAGNESIUM 1.9 MG/DL (1.5-2.4); PHOSPHORUS 3.9 MG/DL (2.3-4.5); POTASSIUM 3.8 MMOL/L (3.5-5.1); SODIUM 138 MMOL/L (135-145); TOTAL CARBON DIOXIDE 32.8 MMOL/L (24-32); TOTAL PROTEIN 6.8 G/DL (6.4-8.2); eGFR 60 ML/MIN
--- NOTE | 2020-03-08 06:19 | NUR ---
Problems reprioritized. Patient report given, questions answered & plan of care reviewed with Mark DAVID. Patient stable at transfer of care, all current needs met
--- NOTE | 2020-03-08 06:25 | NUR ---
Patient in room PCU 3024. I have received report from Lisa DAVID and had the opportunity to ask questions and assume patient care.
[2020-03-08 07:00] VITALS: BP 120/61
[2020-03-08 07:37] LABS: BASOPHILS % (AUTO) 0.3 % (0-1); EOSINOPHILS # (AUTO) 0.1 X10'3 (0-0.9); EOSINOPHILS % (AUTO) 0.7 % (0-6); HEMATOCRIT 35.1 % (35.0-45.0); HEMOGLOBIN 11.5 g/dl (12.0-16.0); LYMPHOCYTES # (AUTO) 1.2 X10'3 (1.1-4.8); LYMPHOCYTES % (AUTO) 14.1 % (21-51); MEAN CORPUSCULAR HEMOGLOBIN 28.6 PG (27.0-31.0); MEAN CORPUSCULAR HGB CONC 32.9 g/dL (33.0-36.5); MEAN CORPUSCULAR VOLUME 86.9 FL (78-98); MEAN PLATELET VOLUME 8.6 FL (7.4-10.4); MONOCYTES # (AUTO) 0.6 X10'3 (0-0.9); MONOCYTES % (AUTO) 6.8 % (2-12); NEUTROPHILS # (AUTO) 6.5 X10'3 (1.8-7.7); NEUTROPHILS % (AUTO) 78.1 % (42-75); PLATELET COUNT 243 X10'3 (140-440); RED BLOOD COUNT 4.04 X10'6 (4.20-5.60); RED CELL DISTRIBUTION WIDTH 14.8 % (11.5-14.5); WHITE BLOOD COUNT 8.2 X10'3 (4.5-11.0)
[2020-03-08] MEDS: duloxetine 30mg CAPSULE.DR PO SCH (07:58)
[2020-03-08] MEDS: PARoxetine 20mg tablet PO SCH (07:58)
[2020-03-08] MEDS: furosemide 40mg tablet PO SCH (07:59)
[2020-03-08] MEDS: lactobacillus rhamnosus 10,000 MMU CELLS/CAPSULE PO SCH ×2 (07:59→20:00)
[2020-03-08] MEDS: cloNIDine 0.1 mg tablet PO SCH ×2 (08:00→20:00)
[2020-03-08] MEDS: K and/or MAG REPLACEMENT MC SCH ×2 (08:00→20:00)
[2020-03-08] MEDS: nicotine 21mg patch - 24 hr TD SCH (08:00)
[2020-03-08] MEDS: heparin, porcine 5000 units/ml vial SQ SCH ×2 (08:03→20:00)
[2020-03-08] MEDS: predniSONE 20 mg tablet PO SCH (08:04)
--- NOTE | 2020-03-08 10:13 | NUR ---
Patient found sitting on ground at the bedside with commode tipped over by PCT. Primary RN notified, patient states she did not hit her head, just missed the commode when she attempted to sit down. Patient assisted to commode by RN and PCT to void. Vital signs obtained and stable, no signs of trauma or distress noted. Small skin tear on right great toe noted. Picture obtained and optifoam applied. MD notified of fall. Patient re-oriented to room and call light, additional education provided about importance of calling for assistance before ambulating independently. Addendum: 03/08/20 at 1022 by Kelsy Motley RN Tabs applied, frequent rounding, bed in low locked position. Fall Risk care plan added
[2020-03-08 10:30] VITALS: BP 109/65
[2020-03-08] MEDS: vancomycin/NS 1 GM ADD-VANTAGE 250 ML IV SCH ×2 (10:34→23:17)
[2020-03-08] MEDS: ALPRAZolam 0.5mg tablet PO PRN (13:25)
[2020-03-08] MEDS: insulin Lispro (HumaLOG) vial - multi-dose SQ SCH (13:39)
--- NOTE | 2020-03-08 18:34 | NUR ---
Patient in room PCU 3024. I have received report from Kelsy DAVID and had the opportunity to ask questions and assume patient care.
--- NOTE | 2020-03-08 18:39 | NUR ---
Problems reprioritized. Patient report given, questions answered & plan of care reviewed with Lisa DAVID.
--- NOTE | 2020-03-08 19:15 | NUR ---
Paged Hospitalist Marilyn Andrea. Lesia Lala [id number] now in 3016A Acute confusion/ALOC, combativeness, refusing all care, patient fell X2 today with no visible injuries, need orders for restraints, ABG order? thank you Lisa [phone]
--- NOTE | 2020-03-08 19:27 | NUR ---
Paged RT for STAT ABG for patient's ALOC
[2020-03-08 19:51] LABS: ABG BASE EXCESS 4.2 mmol/L (-2.0-2.0); ABG HCO3 28.2 mmol/L (22.0-26.0); ABG PCO2 (T) 39.8 mmHg (32.0-45.0); FCOHb 0.2 % (0.0-3.9); FLOW 2 L/min; FO2Hb 91.8 % (94-97)
[2020-03-08 22:00] VITALS: BP 104/59
[2020-03-09 02:00] VITALS: BP 125/64
[2020-03-09] MEDS: HYDROcodone/acetaminophen 10/325mg tab PO PRN ×3 (02:07→20:00)
[2020-03-09] MEDS: ipratropium/albuterol 3ml nebule NEB SCH ×5 (02:44→23:20)
[2020-03-09 06:17] LABS: BASOPHILS # (AUTO) 0.1 X10'3 (0-0.2); BASOPHILS % (AUTO) 0.6 % (0-1); EOSINOPHILS % (AUTO) 0.3 % (0-6); HEMATOCRIT 33.3 % (35.0-45.0); LYMPHOCYTES # (AUTO) 1.2 X10'3 (1.1-4.8); LYMPHOCYTES % (AUTO) 13.4 % (21-51); MEAN CORPUSCULAR HEMOGLOBIN 28.6 PG (27.0-31.0); MEAN CORPUSCULAR HGB CONC 33.1 g/dL (33.0-36.5); MEAN CORPUSCULAR VOLUME 86.4 FL (78-98); MEAN PLATELET VOLUME 8.7 FL (7.4-10.4); MONOCYTES # (AUTO) 0.6 X10'3 (0-0.9); MONOCYTES % (AUTO) 6.5 % (2-12); NEUTROPHILS # (AUTO) 7.1 X10'3 (1.8-7.7); NEUTROPHILS % (AUTO) 79.2 % (42-75); PLATELET COUNT 246 X10'3 (140-440); RED BLOOD COUNT 3.85 X10'6 (4.20-5.60); RED CELL DISTRIBUTION WIDTH 15.1 % (11.5-14.5); WHITE BLOOD COUNT 8.9 X10'3 (4.5-11.0)
--- NOTE | 2020-03-09 06:25 | NUR ---
Problems reprioritized. Patient report given, questions answered & plan of care reviewed with Sabiha DAVID. Patient stable at transfer of care all current needs met
[2020-03-09 06:30] LABS: ALANINE AMINOTRANSFERASE 56 U/L (12-78); ALBUMIN 2.9 G/DL (3.4-5.0); ALBUMIN/GLOBULIN RATIO 0.9 (1.1-1.5); ALKALINE PHOSPHATASE 67 IU/L (46-116); ANION GAP 6 (8-16); ASPARTATE AMINO TRANSFERASE 26 U/L (10-37); BILIRUBIN,TOTAL 0.4 MG/DL (0.1-1.0); BLOOD UREA NITROGEN 20 MG/DL (7-18); BUN/CREATININE RATIO 20.4 (6.6-38.0); CALCIUM 8.7 MG/DL (8.5-10.1); CHLORIDE 102 MMOL/L (99-107); CREATININE 0.98 MG/DL (0.40-0.90); GLUCOSE 115 MG/DL (70-104); MAGNESIUM 1.8 MG/DL (1.5-2.4); PHOSPHORUS 4.4 MG/DL (2.3-4.5); POTASSIUM 3.7 MMOL/L (3.5-5.1); SODIUM 140 MMOL/L (135-145); TOTAL CARBON DIOXIDE 32.1 MMOL/L (24-32); TOTAL PROTEIN 6.1 G/DL (6.4-8.2); eGFR 58 ML/MIN
--- NOTE | 2020-03-09 06:44 | NUR ---
Patient in room PCU 3016. I have received report from JOANN Gonzalez and had the opportunity to ask questions and assume patient care. Pt sleeping comfortably at change of shift.
[2020-03-09 07:00] VITALS: BP 135/61
[2020-03-09] MEDS: nicotine 21mg patch - 24 hr TD SCH ×2 (08:00→08:25)
[2020-03-09] MEDS: K and/or MAG REPLACEMENT MC SCH ×2 (08:00→18:50)
[2020-03-09] MEDS: furosemide 40mg tablet PO SCH (08:23)
[2020-03-09] MEDS: predniSONE 20 mg tablet PO SCH (08:23)
[2020-03-09] MEDS: duloxetine 30mg CAPSULE.DR PO SCH (08:23)
[2020-03-09] MEDS: lactobacillus rhamnosus 10,000 MMU CELLS/CAPSULE PO SCH ×2 (08:24→20:00)
[2020-03-09] MEDS: cyclobenzaprine 10mg tablet PO SCH ×4 (08:24→23:14)
[2020-03-09] MEDS: PARoxetine 20mg tablet PO SCH (08:24)
[2020-03-09] MEDS: cloNIDine 0.1 mg tablet PO SCH ×2 (08:24→20:00)
[2020-03-09] MEDS: heparin, porcine 5000 units/ml vial SQ SCH ×2 (08:25→20:00)
[2020-03-09] MEDS ORDERED: VANCOMYCIN LEVEL IV ONE (09:30)
[2020-03-09] MEDS: benzocaine/menthol oral lozeng 1 EACH BOX MM PRN ×2 (09:52→20:02)
--- NOTE | 2020-03-09 09:58 | NUR ---
Patient doesn't need restraints at this time. Pt cooperating with care, re educated on the use of call light for help. Pt complies with plan of care. Addendum: 03/09/20 at 0959 by Sabiha Rand RN Amended: Links added.
--- NOTE | 2020-03-09 10:08 | NUR ---
Paged respiratory per Pt's request. Lesia Garber [phone] Pt requesting breathing treatment. Thank you :)
[2020-03-09 11:00] VITALS: BP 102/51
[2020-03-09] MEDS: vancomycin/NS 1 GM ADD-VANTAGE 250 ML IV SCH ×2 (11:14→22:19)
[2020-03-09] MEDS: ALPRAZolam 0.5mg tablet PO PRN (14:07)
[2020-03-09 15:00] VITALS: BP 96/61
[2020-03-09 18:00] VITALS: BP 98/58
--- NOTE | 2020-03-09 18:00 | NUR ---
Patient in room PCU 3016. I have received report from Sabiha DAVID and had the opportunity to ask questions and assume patient care.
--- NOTE | 2020-03-09 18:20 | NUR ---
Problems reprioritized. Patient report given, questions answered & plan of care reviewed with JOANN Linda. Pt sitting in bedside chair, eating dinner. All patient needs met at this time.
[2020-03-09] MEDS: insulin Lispro (HumaLOG) vial - multi-dose SQ SCH (20:02)
[2020-03-09 22:00] VITALS: BP 98/59
[2020-03-10] MEDS: HYDROcodone/acetaminophen 10/325mg tab PO PRN ×4 (00:30→19:32)
[2020-03-10] MEDS: benzocaine/menthol oral lozeng 1 EACH BOX MM PRN ×3 (00:30→08:50)
[2020-03-10 02:00] VITALS: BP 111/62
[2020-03-10] MEDS: ipratropium/albuterol 3ml nebule NEB SCH ×6 (03:19→23:29)
--- NOTE | 2020-03-10 06:18 | NUR ---
Patient in room PCU 3016. I have received report from Alexei RN/JOANN Mcgowan and had the opportunity to ask questions and assume patient care. Pt sleeping in bedside chair at change of shift.
--- NOTE | 2020-03-10 06:29 | NUR ---
Orientee documentation: I have reviewed and agree with all interventions, assessments performed and documented by Anaya .
--- NOTE | 2020-03-10 06:29 | NUR ---
Problems reprioritized. Patient report given, questions answered & plan of care reviewed with Sabiha DAVID.
[2020-03-10 07:00] VITALS: BP 94/48
[2020-03-10] MEDS: nicotine 21mg patch - 24 hr TD SCH (08:00)
[2020-03-10] MEDS: cloNIDine 0.1 mg tablet PO SCH ×2 (08:00→19:25)
[2020-03-10] MEDS: K and/or MAG REPLACEMENT MC SCH ×2 (08:00→19:25)
[2020-03-10] MEDS: duloxetine 30mg CAPSULE.DR PO SCH (08:47)
[2020-03-10] MEDS: PARoxetine 20mg tablet PO SCH (08:47)
[2020-03-10] MEDS: cyclobenzaprine 10mg tablet PO SCH (08:48)
[2020-03-10] MEDS: lactobacillus rhamnosus 10,000 MMU CELLS/CAPSULE PO SCH ×2 (08:48→19:25)
[2020-03-10] MEDS: heparin, porcine 5000 units/ml vial SQ SCH ×2 (08:49→19:25)
[2020-03-10] MEDS: ALPRAZolam 0.5mg tablet PO PRN ×2 (08:53→23:05)
[2020-03-10] MEDS: insulin Lispro (HumaLOG) vial - multi-dose SQ SCH ×2 (09:03→22:14)
[2020-03-10] MEDS: predniSONE 20 mg tablet PO SCH (10:47)
[2020-03-10] MEDS: vancomycin/NS 1 GM ADD-VANTAGE 250 ML IV SCH (10:47)
[2020-03-10 11:00] VITALS: BP 143/70
--- NOTE | 2020-03-10 13:12 | NUR ---
Pt arrived from Ed, ambulated from chair to bed with standby assistance. Alert and oriented to room, BLL, SRx2, CL within reach, non skid socks on. First set of vitals complete, MRSA complete, 2 RN skin check complete. Addendum: 03/10/20 at 1347 by Sabiha Rand RN Charted note on wrong patient.
[2020-03-10 15:00] VITALS: BP 90/69
[2020-03-10] MEDS: furosemide 40mg tablet PO SCH (15:15)
[2020-03-10] MEDS: guaiFENesin 200 MG/10 ML oral syrup UD cup PO PRN (15:15)
--- NOTE | 2020-03-10 16:12 | NUR ---
Reassessment: patient eating 25-49% average with poor appetite r/t shortness of breath, reports some difficulty chewing d/t not having dentures with her, she is agreeable to chopped foods with extra gravy. Obtained food preferences. Patient receiving breathing treatment while visiting, endorses an improved appetite with improving breathing. Will continue to follow. Recommendations: 1) continue CHO controlled diet, chop all with extra gravy per patient preferences 2) Monitor need for ONS 3) routine bowel care 4) weekly wts Addendum: 03/10/20 at [address] Amended: Links added.
[2020-03-10 18:00] VITALS: BP 112/61
--- NOTE | 2020-03-10 18:42 | NUR ---
Problems reprioritized. Patient report given, questions answered & plan of care reviewed with JOANN Rutherford. Pt sitting up in bedside chair eating dinner. All pt needs met at this time.
[2020-03-10] MEDS ORDERED: insulin glargine (Lantus) pen - multi-dose SQ SCH (21:00)
--- NOTE | 2020-03-10 22:00 | NUR ---
Patient refused after dinner insulin coverage at 1900 for BS of 305. Patient stated, "I don't want anymore insulin, I only use a pill at home once a day, and I already got my insulin today." I explained to patient that we cover patient's 4 times a day according to blood sugar levels and hospital protocol that's very different from home. Patient stated, "No, that's too many times." I explained 305 is too high of a sugar and needs insulin to avoid acidosis. Patient replied, "No, it'll be normal by morning." At 2100 I rechecked her blood sugar and it was 404. I called the intensivest then tried to reeducate the patient and tell her it's the steroids she's getting in the hospital making her blood sugar higher than usual, so the the insulin is really needed." She agreed and I was able to cover her according to hospital nighttime protocol.
[2020-03-10] MEDS: cyclobenzaprine 10mg tablet PO PRN (23:05)
[2020-03-10 23:11] VITALS: BP 101/62
[2020-03-11] VITALS (12 sets, daily range): BP systolic 94–124; BP diastolic 47–68
[2020-03-11] MEDS: HYDROcodone/acetaminophen 10/325mg tab PO PRN (00:12)
[2020-03-11] MEDS ORDERED: nitroGLYCERIN 0.4mg SUBLingual tab SL PRN (01:25)
--- NOTE | 2020-03-11 01:37 | NUR ---
Chest pain protocol followed. Patient claimed chest pain 10/10, squeezing, and pointed to the left side of her chest where her heart is. Both hospitalist and intensivest notified. Hospitalist signed the EKG and said he didn't see anything ischemia related. New order for Nitroglycerin SL q5min x3 PRN chest pain. Current BP before nitro is 107/72. Nitro was given and 5 mins later patient stated 9/10 pain, a second nitro was given. Intensivest came down to see patient after the 2 nitros. EKG put in chart.
[2020-03-11] MEDS: ipratropium/albuterol 3ml nebule NEB SCH ×5 (03:27→20:09)
[2020-03-11] MEDS ORDERED: albuterol 2.5 MG/3 ML nebule CONTNEB ONE (04:15)
[2020-03-11 04:55] LABS: ABG BASE EXCESS 7.8 mmol/L (-2.0-2.0); ABG HCO3 32.3 mmol/L (22.0-26.0); ABG OXYGEN SATURATION 85.6 % (94-97); ABG PCO2 (T) 44.3 mmHg (32.0-45.0); ALLEN'S TEST Yes; FCOHb 0.3 % (0.0-3.9); FMetHb 0.3 % (0.0-1.5); FO2Hb 85.1 % (94-97); PATIENT TEMPERATURE 36.8; RESPIRATORY RATE 14 b/min; TOTAL HEMOGLOBIN 12.8 G/dl (12.0-16.0)
--- NOTE | 2020-03-11 06:13 | NUR ---
Problems reprioritized. Patient report given, questions answered & plan of care reviewed with Reji Isaacs.
[2020-03-11 06:34] LABS: PARTIAL THROMBOPLASTIN TIME 24 SECONDS (22-32)
--- NOTE | 2020-03-11 06:37 | NUR ---
Patient in room PCU 3016. I have received report from Sangeeta DAVID and had the opportunity to ask questions and assume patient care.
[2020-03-11] MEDS: K and/or MAG REPLACEMENT MC SCH ×2 (08:00→20:00)
[2020-03-11] MEDS: nicotine 21mg patch - 24 hr TD SCH ×2 (08:00→09:08)
[2020-03-11 08:11] LABS: ABG BASE EXCESS 6.2 mmol/L (-2.0-2.0); ABG HCO3 30.9 mmol/L (22.0-26.0); ABG OXYGEN SATURATION 86.9 % (94-97); ABG PO2 (T) 51.6 mmHg (75.0-100.0); ALLEN'S TEST POSITIVE; FCOHb 0.3 % (0.0-3.9); FMetHb 0.1 % (0.0-1.5); FO2Hb 86.6 % (94-97); PATIENT TEMPERATURE 36.7; RESPIRATORY RATE 16 b/min; TOTAL HEMOGLOBIN 12.5 G/dl (12.0-16.0)
[2020-03-11] MEDS: heparin, porcine 5000 units/ml vial SQ SCH ×2 (09:05→20:34)
[2020-03-11] MEDS: cloNIDine 0.1 mg tablet PO SCH ×2 (09:06→20:34)
[2020-03-11] MEDS: lactobacillus rhamnosus 10,000 MMU CELLS/CAPSULE PO SCH ×2 (09:06→20:34)
[2020-03-11] MEDS: duloxetine 30mg CAPSULE.DR PO SCH (09:06)
[2020-03-11] MEDS: furosemide 40mg tablet PO SCH (09:07)
[2020-03-11] MEDS: predniSONE 20 mg tablet PO SCH (09:07)
[2020-03-11] MEDS: PARoxetine 20mg tablet PO SCH (09:07)
[2020-03-11] MEDS: insulin Lispro (HumaLOG) vial - multi-dose SQ SCH ×2 (09:24→13:01)
[2020-03-11 09:28] LABS: BASOPHILS % (AUTO) 0.1 % (0-1); EOSINOPHILS % (AUTO) 0.1 % (0-6); HEMATOCRIT 35.5 % (35.0-45.0); HEMOGLOBIN 11.5 g/dl (12.0-16.0); LYMPHOCYTES # (AUTO) 0.6 X10'3 (1.1-4.8); LYMPHOCYTES % (AUTO) 4.1 % (21-51); MEAN CORPUSCULAR HEMOGLOBIN 27.8 PG (27.0-31.0); MEAN CORPUSCULAR HGB CONC 32.3 g/dL (33.0-36.5); MEAN PLATELET VOLUME 8.3 FL (7.4-10.4); MONOCYTES # (AUTO) 0.3 X10'3 (0-0.9); MONOCYTES % (AUTO) 2.1 % (2-12); NEUTROPHILS # (AUTO) 14.6 X10'3 (1.8-7.7); NEUTROPHILS % (AUTO) 93.6 % (42-75); PLATELET COUNT 248 X10'3 (140-440); RED BLOOD COUNT 4.12 X10'6 (4.20-5.60); RED CELL DISTRIBUTION WIDTH 15.5 % (11.5-14.5); WHITE BLOOD COUNT 15.6 X10'3 (4.5-11.0)
[2020-03-11] MEDS: cyclobenzaprine 10mg tablet PO PRN ×2 (09:30→20:34)
[2020-03-11] MEDS: ALPRAZolam 0.5mg tablet PO PRN ×2 (09:31→20:34)
[2020-03-11] MEDS: benzocaine/menthol oral lozeng 1 EACH BOX MM PRN (09:31)
[2020-03-11 09:51] LABS: ALANINE AMINOTRANSFERASE 52 U/L (12-78); ALBUMIN 2.8 G/DL (3.4-5.0); ALBUMIN/GLOBULIN RATIO 0.9 (1.1-1.5); ALKALINE PHOSPHATASE 70 IU/L (46-116); ANION GAP 8 (8-16); ASPARTATE AMINO TRANSFERASE 23 U/L (10-37); BILIRUBIN,TOTAL 0.5 MG/DL (0.1-1.0); BLOOD UREA NITROGEN 24 MG/DL (7-18); BUN/CREATININE RATIO 25.8 (6.6-38.0); CALCIUM 9.3 MG/DL (8.5-10.1); CHLORIDE 97 MMOL/L (99-107); CREATININE 0.93 MG/DL (0.40-0.90); GLUCOSE 174 MG/DL (70-104); MAGNESIUM 1.7 MG/DL (1.5-2.4); PHOSPHORUS 2.9 MG/DL (2.3-4.5); POTASSIUM 3.1 MMOL/L (3.5-5.1); PREALBUMIN 23.4 MG/DL (19-36); SODIUM 138 MMOL/L (135-145); TOTAL CARBON DIOXIDE 32.9 MMOL/L (24-32); eGFR 62 ML/MIN
[2020-03-11] MEDS ORDERED: magnesium Cl slow-release 64mg tablet PO PRN (10:25)
[2020-03-11] MEDS ORDERED: magnesium 4gm in 100ml NS 100 ML IV PRN (10:25)
[2020-03-11] MEDS ORDERED: potassium Cl 20 mEq SR tablet PO PRN (10:25)
[2020-03-11] MEDS: potassium Cl 20 mEq SR tablet PO PRN (10:39)
--- NOTE | 2020-03-11 16:25 | NUR ---
pt brought down from PCU after a rapid response. pt report received from Ferny DAVID; all questions answered. Dr. Crocker at bedside does not wish to intubate at this time. pt placed on BiPap. Will continue to monitor.
--- NOTE | 2020-03-11 16:58 | NUR ---
Problems reprioritized. Patient report given, questions answered & plan of care reviewed with Palmira DAVID.
[2020-03-11] MEDS ORDERED: midazolam 2 mg/2 ml injection ONE (17:03)
[2020-03-12] VITALS (22 sets, daily range): BP systolic 88–128; BP diastolic 50–72
[2020-03-12] MEDS: ipratropium/albuterol 3ml nebule NEB SCH ×7 (00:05→23:43)
[2020-03-12 05:36] LABS: ALANINE AMINOTRANSFERASE 48 U/L (12-78); ALBUMIN 2.8 G/DL (3.4-5.0); ALBUMIN/GLOBULIN RATIO 0.8 (1.1-1.5); ALKALINE PHOSPHATASE 70 IU/L (46-116); ANION GAP 6 (8-16); ASPARTATE AMINO TRANSFERASE 25 U/L (10-37); BASOPHILS % (AUTO) 0.2 % (0-1); BILIRUBIN,TOTAL 0.6 MG/DL (0.1-1.0); BLOOD UREA NITROGEN 20 MG/DL (7-18); BUN/CREATININE RATIO 23.5 (6.6-38.0); CHLORIDE 101 MMOL/L (99-107); CREATININE 0.85 MG/DL (0.40-0.90); EOSINOPHILS % (AUTO) 0.1 % (0-6); GLUCOSE 91 MG/DL (70-104); HEMATOCRIT 35.4 % (35.0-45.0); HEMOGLOBIN 11.6 g/dl (12.0-16.0); LYMPHOCYTES % (AUTO) 9.9 % (21-51); MAGNESIUM 1.7 MG/DL (1.5-2.4); MEAN CORPUSCULAR HEMOGLOBIN 28.4 PG (27.0-31.0); MEAN CORPUSCULAR HGB CONC 32.9 g/dL (33.0-36.5); MEAN CORPUSCULAR VOLUME 86.4 FL (78-98); MEAN PLATELET VOLUME 8.9 FL (7.4-10.4); MONOCYTES # (AUTO) 0.3 X10'3 (0-0.9); MONOCYTES % (AUTO) 3.3 % (2-12); NEUTROPHILS # (AUTO) 8.9 X10'3 (1.8-7.7); NEUTROPHILS % (AUTO) 86.5 % (42-75); PHOSPHORUS 3.4 MG/DL (2.3-4.5); PLATELET COUNT 240 X10'3 (140-440); POTASSIUM 3.2 MMOL/L (3.5-5.1); RED BLOOD COUNT 4.09 X10'6 (4.20-5.60); RED CELL DISTRIBUTION WIDTH 15.9 % (11.5-14.5); SODIUM 142 MMOL/L (135-145); TOTAL CARBON DIOXIDE 35.2 MMOL/L (24-32); TOTAL PROTEIN 6.2 G/DL (6.4-8.2); WHITE BLOOD COUNT 10.2 X10'3 (4.5-11.0); eGFR 68 ML/MIN
[2020-03-12] MEDS: potassium Cl 20 mEq SR tablet PO PRN ×2 (05:41→08:40)
--- NOTE | 2020-03-12 06:40 | NUR ---
Patient in room CICU 2014. I have received report from Erlinda DAVID and had the opportunity to ask questions and assume patient care.
--- NOTE | 2020-03-12 06:44 | NUR ---
Paged RT. Lesia Lala. 2015. Can RT please set up high flow salter for patient when off bipap for eating and taking meds. Patient requiring 15L to maintain sats in 80's
[2020-03-12] MEDS: nicotine 21mg patch - 24 hr TD SCH (07:43)
[2020-03-12] MEDS ORDERED: linezolid 600mg/300ml PREMIX 300 ML IV ONE (08:30)
[2020-03-12] MEDS ORDERED: cefepime inj. 1 GM in normal saline 100ml IV soln 100 ML IV ONE (08:30)
[2020-03-12] MEDS: heparin, porcine 5000 units/ml vial SQ SCH ×2 (08:40→21:28)
[2020-03-12] MEDS: cloNIDine 0.1 mg tablet PO SCH ×2 (08:40→21:29)
[2020-03-12] MEDS: lactobacillus rhamnosus 10,000 MMU CELLS/CAPSULE PO SCH ×2 (08:40→21:29)
[2020-03-12] MEDS: PARoxetine 20mg tablet PO SCH (08:40)
[2020-03-12] MEDS: K and/or MAG REPLACEMENT MC SCH ×2 (08:47→20:00)
[2020-03-12] MEDS: furosemide 40mg/4ml inj IV SCH ×3 (08:55→21:28)
[2020-03-12] MEDS: methylPREDNISolone sod succ 125mg/2ml vial IV SCH ×3 (08:56→21:28)
--- NOTE | 2020-03-12 09:59 | NUR ---
PIV too sluggish to run IV ABX, picc RN placing new PIV and PICC line. Will start ABX when done.
[2020-03-12 10:59] LABS: CLARITY,URINE CLEAR (Clear); COLOR,URINE YELLOW (Yellow); GLUCOSE, URINE NEGATIVE (Neg); KETONES,URINE TRACE mg/dl (Neg); LEUKOCYTE ESTERASE ,URINE NEGATIVE (Neg); NITRITES, URINE NEGATIVE (Neg); OCCULT BLOOD,URINE NEGATIVE (Neg); PROTEIN,URINE NEGATIVE (Neg); UROBILINOGEN,URINE 0.2 E.U/dL (0.2-1.0)
[2020-03-12 11:00] LABS: UA COLLECTION TYPE CLN CATCH MIDSTREAM
[2020-03-12] MEDS: morphine 4 MG/ML inj SYRINge IV PRN ×2 (12:16→21:28)
[2020-03-12] MEDS: insulin Lispro (HumaLOG) vial - multi-dose SQ SCH (13:48)
--- NOTE | 2020-03-12 14:53 | NUR ---
TF consult: Pt transferred back to CICU. Pt on BiPAP and PO intake has declined to average 0-25% not meeting estimated nutrient needs. Corpak has been placed with the tip in the distal stomach per KUErnst. TF recommendations below. Pt now receiving Zyvox though low tyramine nutrition therapy education not appropriate at this time as pt documented to be A/O x2. Noted that pt with an elevated BG of 404 on 03/10. Per RN notes pt had refused insulin for coverage when BG was 305. Blood sugars have been better controlled since then with a range of 91-296. Pt receiving routine steroids and on hyperglycemic protocol. Pt with a low Roman of 11 though pt with no documented edema or wounds. LBM 03/07 documented as small. PRN bowel care available. Pt would benefit from routine bowel care. Will continue to follow closely. Recommendations: 1) Continue CHO controlled diet, chop all with extra gravy per patient preferences; encourage PO intake 2) Continuous TF via Corpak using Glucerna 1.2 with goal rate of 65 mL/hr to provide: 1560 mL total volume/day, 1872 kcal, 94 g protein, and 1256 mL water 3) Hold additional water flushes at this time per MD 4) Prealbumin q Sunday/ 5) Daily weights 6) Routine bowel care 7) Low tyramine nutrition therapy education once appropriate if indicated Addendum: 03/12/20 at [address] Amended: Links added.
[2020-03-12] MEDS: potassium CL 10mEq/100ml bag 100 ML IV PRN ×4 (14:58→17:55)
--- NOTE | 2020-03-12 15:30 | NUR ---
PICC insertion, Right Upper Arm (Basilic), 44cm Length, 7cm Out, 28cm Arm Circ. 3CG confirmed. Patient tolerated well. Vital signs normal. No rhythm change. REF [id number], LOT [id number], Exp. 10/29/20
[2020-03-12] MEDS: cefepime inj. 1 GM in normal saline 100ml IV soln 100 ML IV SCH ×2 (15:51→23:55)
--- NOTE | 2020-03-12 16:35 | NUR ---
Dr. Velasquez evaluated KUB and said to go ahead and use Corpak, kUB report states in expected location in the distal stomach.
--- NOTE | 2020-03-12 17:16 | NUR ---
Paged Dietary. I have no Glucerna 1.2 in ICU for Lesia Lala in 2015.
[2020-03-12] MEDS: linezolid 600mg/300ml PREMIX 300 ML IV SCH (21:28)
[2020-03-12] MEDS: cyclobenzaprine 10mg tablet PO PRN (21:29)
[2020-03-12] MEDS: ALPRAZolam 0.5mg tablet PO PRN (21:29)
--- NOTE | 2020-03-12 21:51 | NUR ---
Started tube feeding after confirming positive placement by Ifeanyi Baxter. Per ryan DAVID, Dr. Ron barrera usage, but Corpack wire left in and no md order to bruce usage.
[2020-03-12] MEDS: diphenhydrAMINE 50 mg/ml inj IV PRN (22:10)
[2020-03-13] VITALS (24 sets, daily range): BP systolic 83–126; BP diastolic 51–75
[2020-03-13] MEDS: methylPREDNISolone sod succ 125mg/2ml vial IV SCH ×4 (01:38→20:03)
[2020-03-13] MEDS: morphine 4 MG/ML inj SYRINge IV PRN ×3 (01:40→22:15)
[2020-03-13] MEDS: insulin regular, human U-100 3ml vial - multi-dose SQ SCH ×3 (02:32→20:58)
[2020-03-13] MEDS: ipratropium/albuterol 3ml nebule NEB SCH ×6 (03:30→23:32)
[2020-03-13 03:31] LABS: BASOPHILS % (AUTO) 0.1 % (0-1); EOSINOPHILS % (AUTO) 0 % (0-6); HEMATOCRIT 34.6 % (35.0-45.0); HEMOGLOBIN 11.1 g/dl (12.0-16.0); LYMPHOCYTES # (AUTO) 0.3 X10'3 (1.1-4.8); LYMPHOCYTES % (AUTO) 2.6 % (21-51); MEAN CORPUSCULAR HGB CONC 32.1 g/dL (33.0-36.5); MEAN CORPUSCULAR VOLUME 87.2 FL (78-98); MEAN PLATELET VOLUME 8.9 FL (7.4-10.4); MONOCYTES # (AUTO) 0.1 X10'3 (0-0.9); MONOCYTES % (AUTO) 1.3 % (2-12); NEUTROPHILS # (AUTO) 10.6 X10'3 (1.8-7.7); PLATELET COUNT 244 X10'3 (140-440); RED BLOOD COUNT 3.96 X10'6 (4.20-5.60); RED CELL DISTRIBUTION WIDTH 15.7 % (11.5-14.5); WHITE BLOOD COUNT 11.1 X10'3 (4.5-11.0)
[2020-03-13 03:51] LABS: ALANINE AMINOTRANSFERASE 63 U/L (12-78); ALBUMIN 2.7 G/DL (3.4-5.0); ALBUMIN/GLOBULIN RATIO 0.7 (1.1-1.5); ALKALINE PHOSPHATASE 126 IU/L (46-116); ANION GAP 5 (8-16); ASPARTATE AMINO TRANSFERASE 59 U/L (10-37); BILIRUBIN,TOTAL 0.7 MG/DL (0.1-1.0); BLOOD UREA NITROGEN 23 MG/DL (7-18); BUN/CREATININE RATIO 20.5 (6.6-38.0); CALCIUM 8.9 MG/DL (8.5-10.1); CHLORIDE 98 MMOL/L (99-107); CREATININE 1.12 MG/DL (0.40-0.90); GLUCOSE 223 MG/DL (70-104); MAGNESIUM 1.5 MG/DL (1.5-2.4); PHOSPHORUS 3.8 MG/DL (2.3-4.5); POTASSIUM 4.2 MMOL/L (3.5-5.1); SODIUM 136 MMOL/L (135-145); TOTAL CARBON DIOXIDE 33.2 MMOL/L (24-32); TOTAL PROTEIN 6.4 G/DL (6.4-8.2); eGFR 50 ML/MIN
[2020-03-13] MEDS: lactobacillus rhamnosus 10,000 MMU CELLS/CAPSULE PO SCH ×2 (07:59→20:03)
[2020-03-13] MEDS: furosemide 40mg/4ml inj IV SCH (07:59)
[2020-03-13] MEDS: PARoxetine 20mg tablet PO SCH (07:59)
[2020-03-13] MEDS: cloNIDine 0.1 mg tablet PO SCH ×2 (07:59→20:04)
[2020-03-13] MEDS: cefepime inj. 1 GM in normal saline 100ml IV soln 100 ML IV SCH ×3 (07:59→23:37)
[2020-03-13] MEDS: K and/or MAG REPLACEMENT MC SCH ×2 (08:00→20:00)
[2020-03-13] MEDS: linezolid 600mg/300ml PREMIX 300 ML IV SCH ×2 (08:00→20:05)
[2020-03-13] MEDS: heparin, porcine 5000 units/ml vial SQ SCH ×2 (08:01→20:03)
[2020-03-13] MEDS: nicotine 21mg patch - 24 hr TD SCH (08:01)
--- NOTE | 2020-03-13 10:06 | NUR ---
Please disregard the first 10:00 vitals for today. Made in error.
[2020-03-13] MEDS: diphenhydrAMINE 50 mg/ml inj IV PRN (17:19)
--- NOTE | 2020-03-13 18:30 | NUR ---
Patient in room CICU 2014. I have received report from JOANN García and had the opportunity to ask questions and assume patient care.
[2020-03-14] VITALS (23 sets, daily range): BP systolic 87–138; BP diastolic 43–72
[2020-03-14] MEDS: ALPRAZolam 0.5mg tablet PO PRN (00:30)
[2020-03-14] MEDS: methylPREDNISolone sod succ 125mg/2ml vial IV SCH ×3 (02:14→19:41)
[2020-03-14] MEDS: insulin regular, human U-100 3ml vial - multi-dose SQ SCH (02:17)
[2020-03-14 03:24] LABS: BASOPHILS % (AUTO) 0.1 % (0-1); EOSINOPHILS % (AUTO) 0 % (0-6); HEMATOCRIT 32.8 % (35.0-45.0); HEMOGLOBIN 10.7 g/dl (12.0-16.0); LYMPHOCYTES # (AUTO) 0.3 X10'3 (1.1-4.8); LYMPHOCYTES % (AUTO) 2.8 % (21-51); MEAN CORPUSCULAR HEMOGLOBIN 28.2 PG (27.0-31.0); MEAN CORPUSCULAR HGB CONC 32.6 g/dL (33.0-36.5); MEAN CORPUSCULAR VOLUME 86.4 FL (78-98); MEAN PLATELET VOLUME 8.9 FL (7.4-10.4); MONOCYTES # (AUTO) 0.4 X10'3 (0-0.9); MONOCYTES % (AUTO) 3.6 % (2-12); NEUTROPHILS # (AUTO) 9.8 X10'3 (1.8-7.7); NEUTROPHILS % (AUTO) 93.5 % (42-75); PLATELET COUNT 246 X10'3 (140-440); RED CELL DISTRIBUTION WIDTH 15.8 % (11.5-14.5); WHITE BLOOD COUNT 10.5 X10'3 (4.5-11.0)
[2020-03-14] MEDS: ipratropium/albuterol 3ml nebule NEB SCH ×6 (03:25→23:11)
[2020-03-14 03:26] LABS: ALANINE AMINOTRANSFERASE 209 U/L (12-78); ALBUMIN 2.4 G/DL (3.4-5.0); ALBUMIN/GLOBULIN RATIO 0.7 (1.1-1.5); ALKALINE PHOSPHATASE 396 IU/L (46-116); ANION GAP 4 (8-16); ASPARTATE AMINO TRANSFERASE 152 U/L (10-37); BILIRUBIN,TOTAL 0.3 MG/DL (0.1-1.0); BLOOD UREA NITROGEN 36 MG/DL (7-18); BUN/CREATININE RATIO 37.9 (6.6-38.0); CALCIUM 8.9 MG/DL (8.5-10.1); CHLORIDE 100 MMOL/L (99-107); CREATININE 0.95 MG/DL (0.40-0.90); GLUCOSE 150 MG/DL (70-104); MAGNESIUM 1.9 MG/DL (1.5-2.4); PHOSPHORUS 4.1 MG/DL (2.3-4.5); SODIUM 138 MMOL/L (135-145); TOTAL CARBON DIOXIDE 33.9 MMOL/L (24-32); TOTAL PROTEIN 5.9 G/DL (6.4-8.2); eGFR 60 ML/MIN
--- NOTE | 2020-03-14 06:29 | NUR ---
Problems reprioritized. Patient report given, questions answered & plan of care reviewed with JOANN Brown.
--- NOTE | 2020-03-14 07:00 | NUR ---
Patient found to have corepack out of nose several cms. glucerna stopped, corepack removed. Lung sounds with wheezes, patients baseline. Patient alert and oriented, able to follow commands. Took sips of water without difficulty. Will continue to monitor.
[2020-03-14] MEDS: nicotine 21mg patch - 24 hr TD SCH ×2 (07:30→07:59)
[2020-03-14] MEDS: linezolid 600mg/300ml PREMIX 300 ML IV SCH ×2 (07:30→19:40)
[2020-03-14] MEDS: cefepime inj. 1 GM in normal saline 100ml IV soln 100 ML IV SCH ×3 (07:30→23:47)
[2020-03-14] MEDS: PARoxetine 20mg tablet PO SCH (07:31)
[2020-03-14] MEDS: furosemide 40mg/4ml inj IV SCH (07:31)
[2020-03-14] MEDS: lactobacillus rhamnosus 10,000 MMU CELLS/CAPSULE PO SCH ×2 (07:31→19:41)
[2020-03-14] MEDS: cloNIDine 0.1 mg tablet PO SCH ×2 (07:31→19:41)
[2020-03-14] MEDS: heparin, porcine 5000 units/ml vial SQ SCH ×2 (07:33→19:41)
[2020-03-14] MEDS: morphine 4 MG/ML inj SYRINge IV PRN ×3 (07:50→19:42)
[2020-03-14] MEDS: K and/or MAG REPLACEMENT MC SCH ×2 (07:58→20:00)
--- NOTE | 2020-03-14 11:32 | NUR ---
Dr. Sandhu at bedside, new orders to stop tube feeding, and switch patient to carb controlled diet.
[2020-03-14] MEDS: insulin Lispro (HumaLOG) vial - multi-dose SQ SCH ×2 (13:06→19:57)
--- NOTE | 2020-03-14 18:30 | NUR ---
Patient in room CICU 2014. I have received report from JOANN Brown and had the opportunity to ask questions and assume patient care.
[2020-03-14] MEDS: guaiFENesin 200 MG/10 ML oral syrup UD cup PO PRN (19:41)
[2020-03-15] VITALS (24 sets, daily range): BP systolic 96–134; BP diastolic 51–72
[2020-03-15] MEDS: diphenhydrAMINE 50 mg/ml inj IV PRN (02:11)
[2020-03-15] MEDS: morphine 4 MG/ML inj SYRINge IV PRN ×3 (02:11→17:49)
[2020-03-15] MEDS: ipratropium/albuterol 3ml nebule NEB SCH ×6 (03:18→23:20)
[2020-03-15 03:22] LABS: BASOPHILS % (AUTO) 0.2 % (0-1); EOSINOPHILS % (AUTO) 0 % (0-6); HEMATOCRIT 33.4 % (35.0-45.0); HEMOGLOBIN 10.9 g/dl (12.0-16.0); LYMPHOCYTES # (AUTO) 0.2 X10'3 (1.1-4.8); LYMPHOCYTES % (AUTO) 2.3 % (21-51); MEAN CORPUSCULAR HEMOGLOBIN 28.1 PG (27.0-31.0); MEAN CORPUSCULAR HGB CONC 32.5 g/dL (33.0-36.5); MEAN CORPUSCULAR VOLUME 86.4 FL (78-98); MONOCYTES # (AUTO) 0.3 X10'3 (0-0.9); NEUTROPHILS # (AUTO) 8.3 X10'3 (1.8-7.7); NEUTROPHILS % (AUTO) 94.5 % (42-75); PLATELET COUNT 268 X10'3 (140-440); RED BLOOD COUNT 3.87 X10'6 (4.20-5.60); WHITE BLOOD COUNT 8.8 X10'3 (4.5-11.0)
[2020-03-15 03:41] LABS: ALANINE AMINOTRANSFERASE 162 U/L (12-78); ALBUMIN 2.7 G/DL (3.4-5.0); ALBUMIN/GLOBULIN RATIO 0.7 (1.1-1.5); ALKALINE PHOSPHATASE 325 IU/L (46-116); ANION GAP 7 (8-16); ASPARTATE AMINO TRANSFERASE 41 U/L (10-37); BILIRUBIN,TOTAL 0.5 MG/DL (0.1-1.0); BLOOD UREA NITROGEN 37 MG/DL (7-18); BUN/CREATININE RATIO 30.3 (6.6-38.0); CALCIUM 9.3 MG/DL (8.5-10.1); CHLORIDE 96 MMOL/L (99-107); CREATININE 1.22 MG/DL (0.40-0.90); GLUCOSE 241 MG/DL (70-104); MAGNESIUM 1.7 MG/DL (1.5-2.4); PHOSPHORUS 4.6 MG/DL (2.3-4.5); PREALBUMIN 23.1 MG/DL (19-36); SODIUM 135 MMOL/L (135-145); TOTAL CARBON DIOXIDE 31.7 MMOL/L (24-32); TOTAL PROTEIN 6.4 G/DL (6.4-8.2); eGFR 45 ML/MIN
--- NOTE | 2020-03-15 06:14 | NUR ---
Problems reprioritized. Patient report given, questions answered & plan of care reviewed with JOANN Brown.
[2020-03-15] MEDS: cefepime inj. 1 GM in normal saline 100ml IV soln 100 ML IV SCH ×2 (07:20→15:42)
[2020-03-15] MEDS: methylPREDNISolone sod succ 125mg/2ml vial IV SCH ×2 (07:21→19:59)
[2020-03-15] MEDS: linezolid 600mg/300ml PREMIX 300 ML IV SCH (07:21)
[2020-03-15] MEDS: furosemide 40mg/4ml inj IV SCH (07:21)
[2020-03-15] MEDS: lactobacillus rhamnosus 10,000 MMU CELLS/CAPSULE PO SCH ×2 (07:21→19:59)
[2020-03-15] MEDS: PARoxetine 20mg tablet PO SCH (07:21)
[2020-03-15] MEDS: cloNIDine 0.1 mg tablet PO SCH ×2 (07:21→20:00)
[2020-03-15] MEDS: nicotine 21mg patch - 24 hr TD SCH (07:23)
[2020-03-15] MEDS: heparin, porcine 5000 units/ml vial SQ SCH ×2 (07:23→20:01)
[2020-03-15] MEDS: K and/or MAG REPLACEMENT MC SCH ×2 (07:23→18:57)
[2020-03-15] MEDS: insulin Lispro (HumaLOG) vial - multi-dose SQ SCH ×4 (08:34→21:33)
[2020-03-15] MEDS: ALPRAZolam 0.5mg tablet PO PRN (11:30)
--- NOTE | 2020-03-15 12:52 | NUR ---
F/u (03/15): Pt TF cancelled remains on carb controlled diet PO 75-100% avg past 3 meals w/ SOB improving on 3L NC per RN today. LBM 03/07; to start routine bowel care and relistor today per rotary pump operator at rounds. Pt seen by RD for written/verbal zyvox ed w/ RD contact information provided. Will continue to monitor for PO hx and additional protein as well as bowel care needs this admit. Recommendations: 1) Continue CHO controlled diet, chop all with extra gravy per patient preferences; encourage PO intake 2) monitor for ONS needs 3) Routine bowel care 4) weekly wts Addendum: 03/15/20 at [address] Amended: Links added.
[2020-03-15] MEDS: STIOLTO RESPIMAT PO SCH (15:57)
--- NOTE | 2020-03-15 17:33 | NUR ---
Patient transfered to room 2037 without incident. Patient oriented to room and call light. Patient resting comfortably at this time, will continue to monitor.
--- NOTE | 2020-03-15 18:13 | NUR ---
Problems reprioritized. Patient report given, questions answered & plan of care reviewed with JOANN Dos Santos.
--- NOTE | 2020-03-15 18:28 | NUR ---
Patient in room ICU 2037. I have received report and had the opportunity to ask questions and assume patient care.
[2020-03-15] MEDS: linezolid 600mg tablet PO SCH (20:05)
--- NOTE | 2020-03-15 20:17 | NUR ---
bp 100/53 retake bp 96/52. pt bp med held for decreased bp for systolic number being below parameter
--- NOTE | 2020-03-15 21:51 | NUR ---
pt refused bed bath, linens changed
[2020-03-15] MEDS: guaiFENesin 200 MG/10 ML oral syrup UD cup PO PRN (22:38)
[2020-03-16] VITALS (12 sets, daily range): BP systolic 101–128; BP diastolic 44–68
[2020-03-16] MEDS: cefepime inj. 1 GM in normal saline 100ml IV soln 100 ML IV SCH ×2 (00:37→07:08)
[2020-03-16 03:20] LABS: BASOPHILS % (AUTO) 0.4 % (0-1); EOSINOPHILS % (AUTO) 0 % (0-6); HEMATOCRIT 33.5 % (35.0-45.0); LYMPHOCYTES # (AUTO) 0.3 X10'3 (1.1-4.8); LYMPHOCYTES % (AUTO) 3.9 % (21-51); MEAN CORPUSCULAR HEMOGLOBIN 28.6 PG (27.0-31.0); MEAN CORPUSCULAR HGB CONC 32.8 g/dL (33.0-36.5); MEAN CORPUSCULAR VOLUME 87.2 FL (78-98); MEAN PLATELET VOLUME 8.6 FL (7.4-10.4); MONOCYTES # (AUTO) 0.2 X10'3 (0-0.9); MONOCYTES % (AUTO) 3.2 % (2-12); NEUTROPHILS % (AUTO) 92.5 % (42-75); PLATELET COUNT 279 X10'3 (140-440); RED BLOOD COUNT 3.84 X10'6 (4.20-5.60); RED CELL DISTRIBUTION WIDTH 15.9 % (11.5-14.5); WHITE BLOOD COUNT 6.5 X10'3 (4.5-11.0)
[2020-03-16 03:26] LABS: ALANINE AMINOTRANSFERASE 115 U/L (12-78); ALBUMIN 2.7 G/DL (3.4-5.0); ALBUMIN/GLOBULIN RATIO 0.8 (1.1-1.5); ALKALINE PHOSPHATASE 263 IU/L (46-116); ANION GAP 5 (8-16); ASPARTATE AMINO TRANSFERASE 24 U/L (10-37); BILIRUBIN,TOTAL 0.4 MG/DL (0.1-1.0); BLOOD UREA NITROGEN 36 MG/DL (7-18); BUN/CREATININE RATIO 31.3 (6.6-38.0); CALCIUM 8.7 MG/DL (8.5-10.1); CHLORIDE 100 MMOL/L (99-107); CREATININE 1.15 MG/DL (0.40-0.90); GLUCOSE 115 MG/DL (70-104); MAGNESIUM 1.9 MG/DL (1.5-2.4); PHOSPHORUS 3.8 MG/DL (2.3-4.5); POTASSIUM 3.8 MMOL/L (3.5-5.1); SODIUM 138 MMOL/L (135-145); TOTAL CARBON DIOXIDE 33.3 MMOL/L (24-32); TOTAL PROTEIN 6.3 G/DL (6.4-8.2); eGFR 48 ML/MIN
[2020-03-16] MEDS: ipratropium/albuterol 3ml nebule NEB SCH ×3 (03:37→10:54)
[2020-03-16] MEDS: morphine 4 MG/ML inj SYRINge IV PRN (04:38)
[2020-03-16] MEDS: ALPRAZolam 0.5mg tablet PO PRN (04:38)
--- NOTE | 2020-03-16 06:42 | NUR ---
Patient in room ICU 2037. I have received report from Yocasta and had the opportunity to ask questions and assume patient care.
[2020-03-16] MEDS: nicotine 21mg patch - 24 hr TD SCH (07:07)
[2020-03-16] MEDS: STIOLTO RESPIMAT PO SCH (07:07)
[2020-03-16] MEDS: PARoxetine 20mg tablet PO SCH (07:08)
[2020-03-16] MEDS: lactobacillus rhamnosus 10,000 MMU CELLS/CAPSULE PO SCH (07:08)
[2020-03-16] MEDS: furosemide 40mg/4ml inj IV SCH ×2 (07:09→08:51)
[2020-03-16] MEDS: cloNIDine 0.1 mg tablet PO SCH (07:09)
[2020-03-16] MEDS: linezolid 600mg tablet PO SCH (07:09)
[2020-03-16] MEDS: heparin, porcine 5000 units/ml vial SQ SCH (07:10)
[2020-03-16] MEDS: guaiFENesin 200 MG/10 ML oral syrup UD cup PO PRN ×2 (07:27→13:23)
[2020-03-16] MEDS: K and/or MAG REPLACEMENT MC SCH (08:00)
[2020-03-16] MEDS: methylPREDNISolone sod succ 125mg/2ml vial IV SCH (08:40)
[2020-03-16] MEDS: insulin Lispro (HumaLOG) vial - multi-dose SQ SCH (08:50)
[2020-03-16] MEDS ORDERED: bisacodyl 10mg suppository rectal RC STA (10:06)
[2020-03-16] MEDS ORDERED: PRED10TA PO (10:19)
[2020-03-16] MEDS: cyclobenzaprine 10mg tablet PO PRN (13:23)
== END 2020-03-16 15:49 | disposition home or self-care (01) | DRG 130 ==
LOC: ER 18:14 → ED HOLD 21:08 → PCU 3S 02-26 00:15 → CICU 2S 02-26 17:30 → PCU 3S 03-06 21:33 → CICU 2S 03-11 16:50 → ICU 2S 03-15 17:42
PROVIDERS: ADMIT Internal Medicine; ATTEND Family Medicine
PROC: 5A1955Z Respiratory Ventilation, Greater than 96 Consecutive Hours (ICD-10-PCS; principal; 2020-02-26)
PROC: 0BH17EZ Insertion of Endotracheal Airway into Trachea, Via Natural or Artificial Opening (ICD-10-PCS; 2020-02-26)
PROC: 5A09357 Assistance with Respiratory Ventilation, Less than 24 Consecutive Hours, Continuous Positive Airway Pressure (ICD-10-PCS; 2020-02-26)
PROC: 5A09357 Assistance with Respiratory Ventilation, Less than 24 Consecutive Hours, Continuous Positive Airway Pressure (ICD-10-PCS; 2020-03-04)
PROC: 5A09357 Assistance with Respiratory Ventilation, Less than 24 Consecutive Hours, Continuous Positive Airway Pressure (ICD-10-PCS; 2020-03-05)
PROC: 5A09357 Assistance with Respiratory Ventilation, Less than 24 Consecutive Hours, Continuous Positive Airway Pressure (ICD-10-PCS; 2020-03-06)
PROC: 5A09457 Assistance with Respiratory Ventilation, 24-96 Consecutive Hours, Continuous Positive Airway Pressure (ICD-10-PCS; 2020-03-11)
PROC: 02HV33Z Insertion of Infusion Device into Superior Vena Cava, Percutaneous Approach (ICD-10-PCS; 2020-03-12)
PROC: 4A02X4A Measurement of Cardiac Electrical Activity, Guidance, External Approach (ICD-10-PCS; 2020-03-12)
DX: J96.22 Acute and chronic respiratory failure with hypercapnia (principal); J96.21 Acute and chronic respiratory failure with hypoxia; E11.649 Type 2 diabetes mellitus with hypoglycemia without coma; E78.00 Pure hypercholesterolemia, unspecified; F41.9 Anxiety disorder, unspecified; J43.9 Emphysema, unspecified; G93.41 Metabolic encephalopathy; N17.9 Acute kidney failure, unspecified; F32.9 Major depressive disorder, single episode, unspecified; G89.29 Other chronic pain; E11.22 Type 2 diabetes mellitus with diabetic chronic kidney disease; N18.3 Chronic kidney disease, stage 3 (moderate); F17.200 Nicotine dependence, unspecified, uncomplicated; M19.90 Unspecified osteoarthritis, unspecified site; M54.9 Dorsalgia, unspecified; Z82.3 Family history of stroke; Z82.49 Family history of ischemic heart disease and other diseases of the circulatory system; Z83.3 Family history of diabetes mellitus; Z90.710 Acquired absence of both cervix and uterus; Z88.8 Allergy status to other drugs, medicaments and biological substances; Z90.49 Acquired absence of other specified parts of digestive tract; Z79.899 Other long term (current) drug therapy; Z71.6 Tobacco abuse counseling; Z78.1 Physical restraint status
CPT/HCPCS: 36415; 36573; 36600; 71045; 74018; 76937; 80048; 80053; 80202; 81003; 82803; 82948; 83735; 83880; 84100; 84132; 84134; 84484; 85018; 85025; 85610; 85730; 87040; 87070; 87077; 87081; 87186; 92508; 92616; 93005; 94002; 94003; 94640; 94660; 94667; 94668; 94760; 97110; 97112; 97116; 97161; 97164; 97530; 97535; 99285; G0378; J0456; J0692; J0696; J1200; J1644; J1815; J1940; J2020; J2060; J2250; J2270; J2405; J2765; J2920; J2930; J3010; J3370; J3475; J3480; J7030; J7512